=== PATIENT | male | born 1960 | race Caucasian/White ===

== ENCOUNTER 2019-12-07 08:35 | Outpatient (REF) | payer OTHER, SELFPAY ==
[2019-12-07 09:23] LABS: Hematocrit 32.1 % (42-52); Hemoglobin 10.6 g/dl (14.0-18.0); Mean Corpuscular Volume 102.9 fL (80-98); Mean Platelet Volume 10.4 fL (9.4-12.4); Platelet Count 290 X10*3/uL (160-400); Red Blood Count 3.12 X10*6/uL (4.60-5.80); Red Cell Distribution Width 15.8 % (11.0-16.0); White Blood Count 22.4 X10*3/uL (4.8-10.8)
[2019-12-07 10:23] LABS: Anion Gap 15 (12-20); Blood Urea Nitrogen 11 mg/dL (9-16); Calcium 8.2 mg/dL (8.4-10.2); Carbon Dioxide 25 mmol/L (22-29); Chloride 102 mmol/L (96-108); Estimated Glomerular Filt Rate > 60; Glucose Random 96 mg/dL (60-115); Potassium 4.4 mmol/l (3.3-5.1); Sodium 138 mmol/L (135-145)
== END 2019-12-07 08:36 | disposition home or self-care (01) ==
LOC: HO.LAB 08:35
PROVIDERS: PCP Internal Medicine; Visit Provider Internal Medicine
DX: K70.10 Alcoholic hepatitis without ascites (principal)
CPT/HCPCS: 36415; 80048; 85027

== ENCOUNTER → 2019-12-28 15:21 | Outpatient (BNVA) | payer OTHER, SELFPAY | PROVIDERS: PCP Internal Medicine; Referring Provider Internal Medicine; Visit Provider Internal Medicine Gastroenterology | DX: Z76.89 Persons encountering health services in other specified circumstances (principal) ==

== ENCOUNTER 2020-02-16 17:10 | Inpatient (IN) | payer OTHER, SELFPAY ==
[2020-02-16] VITALS (16 sets, daily range): BP systolic 92–107; BP diastolic 42–65; PULSE 99–108; RESP 12–16; TEMP 36.6–37; O2SAT 96–100; BMI 23.6
--- NOTE | 2020-02-16 17:56 | ECG_ITS ---
Test Reason : WEAKNESS Blood Pressure : / mmHG Vent. Rate : 105 BPM Atrial Rate : 105 BPM P-R Int : 130 ms QRS Dur : 086 ms QT Int : 396 ms P-R-T Axes : 084 080 073 degrees QTc Int : 523 ms Sinus tachycardia Prolonged QT Abnormal ECG When compared with ECG of 07-NOV-2019 13:24, QT has lengthened Referred By: Josseline Horvath Electronically Signed By:Merritt Lucas
--- NOTE | 2020-02-16 18:11 | ED_ITS ---
HPI - Abdominal Pain General Chief Complaint: Abdominal Pain Stated Complaint: dehydrated Time Seen by Provider: 02/16/20 17:49 Source: patient and family Mode of arrival: ambulatory Limitations: no limitations History of Present Illness HPI narrative: 59-year-old male with significant history of ascites, alcoholis m, alcoholic cirrhosis presents with jaundice, fevers, chills, nausea, and diarrhea. He was dropped off to this facility by his brother, patient states that he is going through alcohol withdrawals at this time. MD elicited complaint: abdominal pain Pertinent past history: other ( Alcoholic cirrhosis) Onset (ago): unknown Pain Consistency: constant Location: diffuse Severity: severe Pain scale (0-10): 10 Quality: cramping, aching and fullness Exacerbating factors: eating, vomiting and movement Relieving factors: nothing Associated symptoms: nausea, vomiting, diarrhea, fever, chills and anorexia Related Data Home Medications Medication Instructions Recorded Confirmed cholecalciferol (vitamin D3) 1,250 1,250 mcg PO QWEEK 12/28/19 02/16/20 mcg (50,000 unit) capsule furosemide 20 mg tablet 20 mg PO QAM 12/28/19 02/16/20 spironolactone 50 mg tablet 50 mg PO DAILY 12/28/19 02/16/20 Previous Rx's Medication Instructions Recorded folic acid 1 mg tablet 1 mg PO DAILY #30 tab 12/28/19 thiamine HCl (vitamin B1) 100 mg 100 mg PO DAILY 30 Days #30 tab 12/28/19 tablet Allergies Allergy/AdvReac Type Severity Reaction Status Date / Time No Known Allergies Allergy Unverified 11/16/19 14:42 [No Known Allergies*] Review of Systems Review of Systems Constitutional: No Weight loss, positive Fever, positive Chills, positive Malaise ENT/Mouth: No Hearing loss, No Ear Pain, No Nasal Congestion, No Sinus Pain, No Hoarseness, No sore throat, No Rhinorrhea, No Swallowing Difficulty Eyes: No Eye Pain, No Swelling, No Redness, No Foreign Body, No Discharge, No Vision Changes Cardiovascular: No Chest Pain, No SOB, No Dyspnea on Exertion, No Orthopnea, No Edema, No Palpitations Respiratory: No Cough, No Sputum, No Wheezing, No Smoke Exposure, No Dyspnea Gastrointestinal: Positive Nausea, no Vomiting, positive Diarrhea, positive abdominal Pain, No Hematochezia, No Melena Genitourinary: no irregular bleeding, No Dysuria, No Urinary Frequency, No Hematuria, No Urinary Incontinence, No Urgency, No Flank Pain, No Urinary Flow Changes, No Hesitancy Musculoskeletal: No joint pain, No Myalgias, No Joint Swelling Skin: positive jaundice, No Skin Lesions, No rash Neuro: No Weakness, No Numbness, No Paresthesias, No Loss of Consciousness, No Dizziness, No Headache Psych: No Anxiety/Panic, positive Depression, No SI/HI/AH/VH, positive alcoholism Heme/Lymph: No Bruising, No Bleeding,No Lymphadenopathy Endocrine: No Polyuria, No Polydipsia, No Temperature Intolerance Yes all other systems are reviewed and are negative Physical Exam Vital Signs: Vital Signs: Last Vital Signs Temp 98.2 F 02/17/20 02:15 Pulse 100 02/17/20 02:15 Resp 11 L 02/17/20 02:15 BP 103/50 L 02/17/20 02:15 Pulse Ox 99 02/17/20 02:15 Body Mass Index 23.6 Appearance: Alert. Oriented X3. moderate distress. tremors, Eyes: Pupils equal, round and reactive to light. scleral icterus ENT: Pharynx normal. Neck: JVD distention CVS: tachycardic heart rate and rhythm. Pulses equal and thready to all extremities Respiratory: No respiratory distress. Breath sounds normal. Abdomen: distended consistent with ascites Skin: jaundice, Skin warm, flaky, and dry. Extremities: positive bilateral lower extremity edema Neuro: No motor deficit. No sensory deficit. Procedures Paracentesis Time Out Performed: Yes Indication: Ascites Procedure: therapeutic paracentesis Location: RLQ Local Anesthetic: lidocaine 2% Amount of anesthesia used (mL): 5 Bedside Ultrasound Used: yes, Ascites confirmed and location marked Preparation: sterile prep and drape Amount of fluid obtained (mL): 2,000 Fluid: clear Size of Needle Used: 25 Post Procedure Exam: awake, alert, normal BP, normal HR and normal SpO2 Patient Tolerated Procedure: well and no complications Complications: none Course Course Course Narrative: 59-year-old male with known anemia, alcohol abuse with alcohol withdrawal, ascites, cirrhosis and jaundice presents with numerous complaints. Plan of care is to start phenobarbital protocol as he is actively withdrawing from alcohol, will start 2 lines as he needs a banana bag and fluids. Magnesium is 1.5, we will replete with 2 g IV, ammonia 91, we will give lactulose, potassium 2.7 replete 60 mg p.o., sodium 131 which may be repleted with 2 L bolus and banana bag, bilirubin 11, alk-phos 143, H&H 5.4 were 15.5 order for 2 units of packed red blood cells, CT scan of abdomen shows moderate ascites. Plan for paracentesis and admission. Friedman catheterization and rectal tube ordered. Discussion with Philippe Hammer. Paracentesis completed, right lateral side, under ultrasound guidance, patient tolerated procedure well, 2 L of fluid aspirated, fluids sent for culture. Prepped and draped in sterile fashion. Consultations Consultation #1: Philippe Hammer Time: 20:43 MDM - Abdominal Pain Differential Diagnosis Differential diagnosis: Likely abdominal pain, acute appendicitis, bowel perforation, diverticulitis, gastritis, mesenteric ischemia and pancreatitis Medical Records Attestation: I reviewed the patient's medical records. Lab Data Attestation: I reviewed the patient's lab results. Result diagrams: 02/17/20 00:21 02/17/20 00:21 Labs: Lab Results 02/16/20 02/16/20 02/16/20 Range/Units 18:23 18:23 18:23 WBC Cancelled RBC Cancelled Hgb Cancelled Hct Cancelled MCV Cancelled MCH Cancelled MCHC Cancelled RDW Cancelled Plt Count Cancelled MPV Cancelled Immature Gran % (Auto) Cancelled Neut % (Auto) Cancelled Lymph % (Auto) Cancelled [place] % (Auto) Cancelled Eos % (Auto) Cancelled Baso % (Auto) Cancelled Lymph # (Auto) Cancelled [place] # (Auto) Cancelled Eos # (Auto) Cancelled Baso # (Auto) Cancelled Abs Immat Gran (auto) Cancelled Absolute Neuts (auto) Cancelled Absolute Nucleated RBC Cancelled Nucleated RBC % (auto) Cancelled PT 23.6 H (10.8-13.0) SEC INR 2.0 H (0.9-1.1) APTT 39.2 H (24.1-38.0) SEC Sodium 131 L (135-145) mmol/L Potassium 2.7 L D (3.3-5.1) mmol/l Chloride 87 L (96-108) mmol/L Carbon Dioxide 26 (22-29) mmol/L Anion Gap 21 H (12-20) BUN 17 H D (9-16) mg/dL Creatinine 1.32 (0.5-1.4) mg/dL Estim Creat Clear Calc 61.4 Estimated GFR 55 Random Glucose 114 (60-115) mg/dL Calcium 7.8 L (8.4-10.2) mg/dL Magnesium (1.6-2.6) mg/dL Total Bilirubin 11.0 H (0.0-1.0) mg/dL Direct Bilirubin 7.3 H (0.0-0.5) mg/dL AST 77 H (5-37) U/L ALT 12 (0-40) U/L Alkaline Phosphatase 143 H (39-117) U/L Ammonia (13-55) umol/L Troponin I High Sens (<3.5-35.0) ng/L B-Natriuretic Peptide (<100) pg/mL Total Protein 7.1 (6.5-8.0) g/dL Albumin 2.2 L (3.5-5.0) g/dL Lipase 93 H (8-78) U/L Urine Color Urine Appearance Urine pH (5.0-8.0) Ur Specific [place] (1.005-1.025) Urine Protein (NEG-TRACE) MG/DL Urine Glucose (UA) (NEG) MG/DL Urine Ketones (NEG) MG/DL Urine Blood (NEG) Urine Nitrite (NEG) Ur Leukocyte Esterase (NEG) Urine RBC (0) /HPF Urine WBC (0-4) /HPF Ur Squamous Epith Cells /LPF Ur Renal Epithelial Cell /LPF Other Crystals /LPF Urine Bacteria /LPF Hyaline Casts /LPF Urine Mucus /LPF Ethyl Alcohol mg/dL COVID-19 (MAHAD) (Negative) COVID-19 Clin Com Blood Type Antibody Screen Crossmatch 02/16/20 02/16/20 02/16/20 Range/Units 18:23 18:23 18:23 WBC RBC Hgb Hct MCV MCH MCHC RDW Plt Count MPV Immature Gran % (Auto) Neut % (Auto) Lymph % (Auto) [place] % (Auto) Eos % (Auto) Baso % (Auto) Lymph # (Auto) [place] # (Auto) Eos # (Auto) Baso # (Auto) Abs Immat Gran (auto) Absolute Neuts (auto) Absolute Nucleated RBC Nucleated RBC % (auto) PT (10.8-13.0) SEC INR (0.9-1.1) APTT (24.1-38.0) SEC Sodium (135-145) mmol/L Potassium (3.3-5.1) mmol/l Chloride (96-108) mmol/L Carbon Dioxide (22-29) mmol/L Anion Gap (12-20) BUN (9-16) mg/dL Creatinine (0.5-1.4) mg/dL Estim Creat Clear Calc Estimated GFR Random Glucose (60-115) mg/dL Calcium (8.4-10.2) mg/dL Magnesium 1.5 L (1.6-2.6) mg/dL Total Bilirubin (0.0-1.0) mg/dL Direct Bilirubin (0.0-0.5) mg/dL AST (5-37) U/L ALT (0-40) U/L Alkaline Phosphatase (39-117) U/L Ammonia (13-55) umol/L Troponin I High Sens 3.8 (<3.5-35.0) ng/L B-Natriuretic Peptide 85 (<100) pg/mL Total Protein (6.5-8.0) g/dL Albumin (3.5-5.0) g/dL Lipase (8-78) U/L Urine Color Urine Appearance Urine pH (5.0-8.0) Ur Specific [place] (1.005-1.025) Urine Protein (NEG-TRACE) MG/DL Urine Glucose (UA) (NEG) MG/DL Urine Ketones (NEG) MG/DL Urine Blood (NEG) Urine Nitrite (NEG) Ur Leukocyte Esterase (NEG) Urine RBC (0) /HPF Urine WBC (0-4) /HPF Ur Squamous Epith Cells /LPF Ur Renal Epithelial Cell /LPF Other Crystals /LPF Urine Bacteria /LPF Hyaline Casts /LPF Urine Mucus /LPF Ethyl Alcohol 208 mg/dL COVID-19 (MAHAD) (Negative) COVID-19 Clin Com Blood Type Antibody Screen Crossmatch 02/16/20 02/16/20 02/16/20 Range/Units 18:24 19:38 20:45 WBC 15.6 H RBC 1.60 L D Hgb 5.4 L* D Hct 15.5 L* D MCV 96.9 MCH 33.8 H MCHC 34.8 RDW 20.0 H Plt Count 164 D MPV 10.3 Immature Gran % (Auto) 1.6 H Neut % (Auto) 87.0 H Lymph % (Auto) 5.1 L [place] % (Auto) 6.1 Eos % (Auto) 0.1 Baso % (Auto) 0.1 Lymph # (Auto) 0.8 L [place] # (Auto) 1.0 Eos # (Auto) 0.0 Baso # (Auto) 0.0 Abs Immat Gran (auto) 0.25 H Absolute Neuts (auto) 13.6 H Absolute Nucleated RBC 0.140 H Nucleated RBC % (auto) 0.9 H PT (10.8-13.0) SEC INR (0.9-1.1) APTT (24.1-38.0) SEC Sodium (135-145) mmol/L Potassium (3.3-5.1) mmol/l Chloride (96-108) mmol/L Carbon Dioxide (22-29) mmol/L Anion Gap (12-20) BUN (9-16) mg/dL Creatinine (0.5-1.4) mg/dL Estim Creat Clear Calc Estimated GFR Random Glucose (60-115) mg/dL Calcium (8.4-10.2) mg/dL Magnesium (1.6-2.6) mg/dL Total Bilirubin (0.0-1.0) mg/dL Direct Bilirubin (0.0-0.5) mg/dL AST (5-37) U/L ALT (0-40) U/L Alkaline Phosphatase (39-117) U/L Ammonia 91 H (13-55) umol/L Troponin I High Sens (<3.5-35.0) ng/L B-Natriuretic Peptide (<100) pg/mL Total Protein (6.5-8.0) g/dL Albumin (3.5-5.0) g/dL Lipase (8-78) U/L Urine Color Urine Appearance Urine pH (5.0-8.0) Ur Specific [place] (1.005-1.025) Urine Protein (NEG-TRACE) MG/DL Urine Glucose (UA) (NEG) MG/DL Urine Ketones (NEG) MG/DL Urine Blood (NEG) Urine Nitrite (NEG) Ur Leukocyte Esterase (NEG) Urine RBC (0) /HPF Urine WBC (0-4) /HPF Ur Squamous Epith Cells /LPF Ur Renal Epithelial Cell /LPF Other Crystals /LPF Urine Bacteria /LPF Hyaline Casts /LPF Urine Mucus /LPF Ethyl Alcohol mg/dL COVID-19 (MAHAD) Negative (Negative) COVID-19 Clin Com See Note Blood Type Antibody Screen Crossmatch 02/16/20 02/17/20 02/17/20 Range/Units 21:16 00:21 00:21 WBC 16.8 H RBC 1.96 L D Hgb 6.7 L* D Hct 19.0 L* D MCV 96.9 MCH 34.2 H MCHC 35.3 RDW 18.2 H Plt Count 152 L MPV 10.3 Immature Gran % (Auto) 1.5 H Neut % (Auto) 84.0 H Lymph % (Auto) 6.6 L [place] % (Auto) 7.6 Eos % (Auto) 0.2 Baso % (Auto) 0.1 Lymph # (Auto) 1.1 L [place] # (Auto) 1.3 H Eos # (Auto) 0.0 Baso # (Auto) 0.0 Abs Immat Gran (auto) 0.25 H Absolute Neuts (auto) 14.1 H Absolute Nucleated RBC 0.100 H Nucleated RBC % (auto) 0.6 H PT (10.8-13.0) SEC INR (0.9-1.1) APTT (24.1-38.0) SEC Sodium 132 L (135-145) mmol/L Potassium 2.9 L (3.3-5.1) mmol/l Chloride 93 L (96-108) mmol/L Carbon Dioxide 24 (22-29) mmol/L Anion Gap 18 (12-20) BUN 17 H (9-16) mg/dL Creatinine 1.27 (0.5-1.4) mg/dL Estim Creat Clear Calc 63.8 Estimated GFR 58 Random Glucose 123 H (60-115) mg/dL Calcium 7.4 L (8.4-10.2) mg/dL Magnesium 1.8 (1.6-2.6) mg/dL Total Bilirubin (0.0-1.0) mg/dL Direct Bilirubin (0.0-0.5) mg/dL AST (5-37) U/L ALT (0-40) U/L Alkaline Phosphatase (39-117) U/L Ammonia (13-55) umol/L Troponin I High Sens (<3.5-35.0) ng/L B-Natriuretic Peptide (<100) pg/mL Total Protein (6.5-8.0) g/dL Albumin (3.5-5.0) g/dL Lipase (8-78) U/L Urine Color Urine Appearance Urine pH (5.0-8.0) Ur Specific [place] (1.005-1.025) Urine Protein (NEG-TRACE) MG/DL Urine Glucose (UA) (NEG) MG/DL Urine Ketones (NEG) MG/DL Urine Blood (NEG) Urine Nitrite (NEG) Ur Leukocyte Esterase (NEG) Urine RBC (0) /HPF Urine WBC (0-4) /HPF Ur Squamous Epith Cells /LPF Ur Renal Epithelial Cell /LPF Other Crystals /LPF Urine Bacteria /LPF Hyaline Casts /LPF Urine Mucus /LPF Ethyl Alcohol mg/dL COVID-19 (MAHAD) (Negative) COVID-19 Clin Com Blood Type O Positive Antibody Screen NEGATIVE Crossmatch See Detail 02/17/20 Range/Units 00:28 WBC RBC Hgb Hct MCV MCH MCHC RDW Plt Count MPV Immature Gran % (Auto) Neut % (Auto) Lymph % (Auto) [place] % (Auto) Eos % (Auto) Baso % (Auto) Lymph # (Auto) [place] # (Auto) Eos # (Auto) Baso # (Auto) Abs Immat Gran (auto) Absolute Neuts (auto) Absolute Nucleated RBC Nucleated RBC % (auto) PT (10.8-13.0) SEC INR (0.9-1.1) APTT (24.1-38.0) SEC Sodium (135-145) mmol/L Potassium (3.3-5.1) mmol/l Chloride (96-108) mmol/L Carbon Dioxide (22-29) mmol/L Anion Gap (12-20) BUN (9-16) mg/dL Creatinine (0.5-1.4) mg/dL Estim Creat Clear Calc Estimated GFR Random Glucose (60-115) mg/dL Calcium (8.4-10.2) mg/dL Magnesium (1.6-2.6) mg/dL Total Bilirubin (0.0-1.0) mg/dL Direct Bilirubin (0.0-0.5) mg/dL AST (5-37) U/L ALT (0-40) U/L Alkaline Phosphatase (39-117) U/L Ammonia (13-55) umol/L Troponin I High Sens (<3.5-35.0) ng/L B-Natriuretic Peptide (<100) pg/mL Total Protein (6.5-8.0) g/dL Albumin (3.5-5.0) g/dL Lipase (8-78) U/L Urine Color BROWN Urine Appearance HAZY Urine pH 6.5 (5.0-8.0) Ur Specific [place] 1.015 (1.005-1.025) Urine Protein 1+ H (NEG-TRACE) MG/DL Urine Glucose (UA) 100 H (NEG) MG/DL Urine Ketones 15 (NEG) MG/DL Urine Blood 1+ H (NEG) Urine Nitrite POS H (NEG) Ur Leukocyte Esterase TRACE H (NEG) Urine RBC 0-2 (0) /HPF Urine WBC 0 (0-4) /HPF Ur Squamous Epith Cells TRACE /LPF Ur Renal Epithelial Cell TRACE /LPF Other Crystals 2+ /LPF Urine Bacteria NONE /LPF Hyaline Casts 10-14 /LPF Urine Mucus 1+ /LPF Ethyl Alcohol mg/dL COVID-19 (MAHAD) (Negative) COVID-19 Clin Com Blood Type Antibody Screen Crossmatch Imaging Data Chest x-ray: Attestation: I personally reviewed and interpreted this imaging study as follows: ECG Data Attestation: I personally reviewed and interpreted this ECG as follows: ECG interpretation date: 02/16/20 ECG interpretation time: 18:11 Prior ECG tracings: available for review Interpretation: Vent. Rate : 105 BPM Atrial Rate : 105 BPM P-R Int : 130 ms QRS Dur : 086 ms QT Int : 396 ms P-R-T Axes : 084 080 073 degrees QTc Int : 523 ms Sinus tachycardia Prolonged QT Abnormal ECG When compared with ECG of 07-NOV-2019 13:24, QT has lengthened Critical Care Time Critical Care Time Critical Care Time: Yes Total Critical Care Time: 120 Attestation: I have personally provided critical care time exclusive of time spent on separately billable procedures. Time includes review of laboratory data, radiology results, discussion with consultants, and monitoring for potential decompensation. Interventions were performed as documented. Discharge Plan Discharge Clinical Impression: Alcohol abuse Cirrhosis, alcoholic Qualifiers: Ascites presence: with ascites Qualified Code(s): K70.31 - Alcoholic cirrhosis of liver with ascites Anemia Qualifiers: Anemia type: iron deficiency Iron deficiency anemia type: unspecified iron deficiency Qualified Code(s): D50.9 - Iron deficiency anemia, unspecified Alcohol withdrawal Qualifiers: Complication of substance-induced condition: uncomplicated Qualified Code(s): F10.230 - Alcohol dependence with withdrawal, uncomplicated Abdominal ascites Qualifiers: Ascites type: due to alcoholic cirrhosis Qualified Code(s): K70.31 - Alcoholic cirrhosis of liver with ascites Patient Disposition: Admitted As Inpatient [facility] Past Medical History Attestation statement: The following information was validated with the patient. Source: old records reviewed Medical History Alcohol abuse Anemia Cirrhosis, alcoholic History of abdominal paracentesis History of open sigmoidectomy Low vitamin D level Surgical History History of esophagogastroduodenoscopy (EGD) Hx of colonoscopy Family History Family History Father Hx of thyroid cancer Mother Hx of thyroid disease Daughter No problems noted. 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
--- NOTE | 2020-02-16 18:37 | CT_ITS ---
EXAMINATION: CT ABDOMEN AND PELVIS WITHOUT CONTRAST CLINICAL INFORMATION: Cirrhosis of liver and ascites. COMPARISON: Abdominal ultrasound 11/24/2019, CT abdomen and pelvis 11/24/2019. TECHNIQUE: Multidetector volumetric imaging was performed from the superior aspect of the liver through the pubic symphysis. Sagittal and coronal reformatted images were obtained on the technologist's workstation. This CT examination was performed using dose optimization techniques as appropriate, variously including the following: *Automated exposure control *Adjustment of mA and/or kV according to patient size (this includes techniques or standardized protocols for targeted exams where dose is matched to indication/reason for exam; i.e. extremities or head) *Use of iterative reconstruction technique DLP: 470 mGy-cm FINDINGS: LUNG BASES: Right basilar atelectasis is unchanged. A tiny left pleural effusion is once again seen. LIVER, GALLBLADDER, AND BILIARY TREE: The liver is enlarged and demonstrates heterogeneous fatty infiltration, significantly worse than noted previously with relative sparing of the left lobe of the liver. Cirrhotic changes are present. A recanalized umbilical vein is present. Moderate ascites remains present. The gallbladder is more distended than on the prior study but is otherwise unremarkable with no evidence of radiopaque gallstones, gallbladder wall thickening, or obvious pericholecystic inflammatory changes. PANCREAS: Unremarkable. SPLEEN: Unremarkable. ADRENAL GLANDS: Unremarkable. KIDNEYS AND URETERS: The kidneys are normal in size, shape, and attenuation. No hydronephrosis, hydroureter, or calculi seen. No perinephric stranding. BLADDER: Unremarkable. GASTROINTESTINAL TRACT: Again seen is a rectosigmoid anastomosis. The left colon and transverse colon appear normal. The right colon appears edematous. Previously seen circumferential thickening of some of the small bowel is unchanged. No pneumatosis is seen. No free air is seen. No evidence of intra-abdominal abscess. ABDOMINAL WALL: No significant hernia is appreciated. LYMPH NODES: Normal. VASCULAR: Aortoiliac calcific atherosclerotic changes. IVC appears normal. Recanalized umbilical vein as described above. PELVIC VISCERA: There is mild BPH again seen. The seminal vesicles are unremarkable. OSSEOUS STRUCTURES: Mild degenerative change is present in the spine. Nonunion of right 9th rib fracture redemonstrated. CT/CT abdomen pelvis wo con IMPRESSION: 1. Cirrhotic liver with moderate ascites, unchanged. 2. The right colon now appears edematous and some small-bowel loops remain thickened. This could be secondary to enteritis. 3. Other incidental findings as described above
[2020-02-16 18:52] LABS: Ethanol 208 mg/dL
[2020-02-16 18:56] LABS: Ammonia 91 umol/L (13-55)
[2020-02-16 18:56] LABS: Magnesium 1.5 mg/dL (1.6-2.6)
[2020-02-16 19:01] LABS: B Type Natriuretic Peptide 85 pg/mL (<100); Troponin-I High Sensitivity 3.8 ng/L (<3.5-35.0)
[2020-02-16 19:07] LABS: Prothrombin Time 23.6 SEC (10.8-13.0)
[2020-02-16 19:08] LABS: Alanine Aminotransferase 12 U/L (0-40); Albumin Level 2.2 g/dL (3.5-5.0); Alkaline Phosphatase 143 U/L (39-117); Anion Gap 21 (12-20); Aspartate Amino Transferase 77 U/L (5-37); Bilirubin Direct 7.3 mg/dL (0.0-0.5); Blood Urea Nitrogen 17 mg/dL (9-16); Calcium 7.8 mg/dL (8.4-10.2); Carbon Dioxide 26 mmol/L (22-29); Chloride 87 mmol/L (96-108); Creatinine Clr Calc Pharmacy 61.4; Estimated Glomerular Filt Rate 55; Glucose Random 114 mg/dL (60-115); Potassium 2.7 mmol/l (3.3-5.1); Sodium 131 mmol/L (135-145); Total Protein 7.1 g/dL (6.5-8.0)
[2020-02-16 19:10] LABS: Partial Thromboplastin Time 39.2 SEC (24.1-38.0)
[2020-02-16 19:20] LABS: Lipase 93 U/L (8-78)
[2020-02-16 19:47] LABS: MANUAL DIFF FLAG NO
[2020-02-16 19:49] LABS: Basophils Percent Auto 0.1 % (0-2); Eosinophils Percent Auto 0.1 % (0-4); Imm Gran Abs Auto 0.25 X10*3/uL (0.00-0.03); Imm Gran Pct Auto 1.6 % (0.0-0.4); Lymphocytes Absolute Auto 0.8 X10*3/uL (1.2-4.9); Lymphocytes Percent Auto 5.1 % (20-40); Mean Corpuscular HGB Conc 34.8 g/dl (31.0-36.0); Mean Corpuscular Hemoglobin 33.8 pg (27.0-33.0); Mean Corpuscular Volume 96.9 fL (80-98); Mean Platelet Volume 10.3 fL (9.4-12.4); Monocytes Percent Auto 6.1 % (2-11); NRBC Pct Auto 0.9 /100WBC (0.0-0.2); Neutrophils Absolute Auto 13.6 X10*3/uL (2.0-8.3); Platelet Count 164 X10*3/uL (160-400); White Blood Count 15.6 X10*3/uL (4.8-10.8)
[2020-02-16 19:54] LABS: Hemoglobin 5.4 g/dl (14.0-18.0)
[2020-02-16 19:55] LABS: Hematocrit 15.5 % (42-52)
[2020-02-16] MEDS: Lactulose 20 GM/30 ML SOLUTION 60 GM PO (20:07)
[2020-02-16] MEDS: 0.9 % Sodium Chloride 1,000 ML 999 ML IV (20:08)
[2020-02-16] MEDS: Magnesium Sulfate/H2O 2 GM/50 ML PIGGYBACK IV (20:08)
[2020-02-16] MEDS: PHENobarbitaL sodium 130 MG/ML VIAL 350 MG IM (20:08)
--- NOTE | 2020-02-16 20:13 | PC.NURSE ---
SECOND IV ACCESS ESTABLISHED BY DAVIS GARCÍA IN RIGHT AC. BANANA BAG, NS 1L, AND MAGNESIUM 2GM INFUSING ORDERED. PT HYPOTENSIVE, 92/47 AT THIS TIME, PROVIDER AWARE. SINUS TACHYCARDIA 104 ON MONITOR. RESP EVEN/UNLABORED. JAUNDICED SKIN. MEDICATED WITH LACTULOSE AND PHENOBARB IM FOR WITHDRAWAL SYMPTOMS. WILL CONTINUE TO MONITOR. AWARE OF CRITICAL LABS.
--- NOTE | 2020-02-16 20:24 | PC.NURSE ---
POTASSIUM CHLORIDE 60MEQ PO UNAVAILABLE IN [facility] AT THIS TIME. THIS RN CALLED PHARMACY, WILL ADMINISTER MEDICATION UPON ARRIVAL TO ED. DAVIS GARCÍA AWARE.
--- NOTE | 2020-02-16 20:50 | PC.NURSE ---
DRAWING TYPE/SCREEN AT THIS TIME. PT IS ALERT/ORIENTED x3, BLOOD PRESSURE IMPROVING. LAST BP 105/57. WILL CONTINUE TO MONITOR. POTASSIUM 60MEQ PO ADMINISTERED ORDERED.
[2020-02-16 21:05] LABS: COVID-19 Test Negative (Negative)
--- NOTE | 2020-02-16 21:28 | PC.NURSE ---
PER MYLENE (PHARMACIST), PHENOBARBITAL TO BE ADMINISTERED 3 HOURS AFTER FIRST DOSE ADMINISTRATION. AWARE THAT FIRST DOSE (350MG IM) WAS ADMINISTERED AT 20:08 IN ED BY THIS RN. SECOND DOSE TO BE ADMINISTERED AT 23:00. DAVIS GARCÍA AWARE. PER LAB, THERE WAS NOT ENOUGH BLOOD IN THE FIRST TYPE/SCREEN TUBE. LAB REDRAWN AND SENT FOR ANALYSIS. AWAITING RESULTS. PROVIDER ALSO AWARE OF THIS.
--- NOTE | 2020-02-16 22:06 | PC.NURSE ---
PREPARING FOR BLOOD ADMINISTRATION. RBC UNIT (1) READY. PER RAQUEL,RADIOLOGY TRANSCRIPTIONIST, 2ND UNIT OF RBCs TO BE ORDERED AND ADMINISTERED. ALSO PER RAQUEL, PLAN TO OBTAIN CBC, BMP, AND MAGNESIUM LEVEL UPON COMPLETE INFUSION OF 1ST UNIT OF RBCs.
--- NOTE | 2020-02-16 22:20 | PC.NURSE ---
1 UNIT RBCs INITIATED BY THIS RN, WITNESSED BY CALLY APONTE RN. WILL CONTINUE TO MONITOR. UNIT #: [id number] BLOOD BAND #: [id number] O POSITIVE RBCs, LEUKOCYTES REDUCED.
--- NOTE | 2020-02-16 22:30 | PC.NURSE ---
PLACED ON 2LPM OXYGEN VIA NASAL CANNULA. LUNG SOUNDS REMAIN CLEAR THROUGHOUT. SLEEPING, RESPIRATIONS EVEN & UNLABORED.
--- NOTE | 2020-02-16 22:35 | PC.NURSE ---
REPEAT VITAL SIGNS 15 MINUTES AFTER INITIATING BLOOD TRANSFUSION ARE: BP 101/50 PULSE 101 OXYGEN SAT: 98% ON 2LPM VIA NASAL CANNULA RR: 12 TEMPERATURE: 98.4F WILL CONTINUE TO MONITOR. NO ADVERSE EFFECTS/REACTIONS NOTED AT THIS TIME.
--- NOTE | 2020-02-16 22:54 | PC.NURSE ---
LARGE LIQUID STOOL NOTED. PATIENT'S LINENS AND GOWN CHANGED TWICE, PT BEGAN HAVING SECOND EPISODE OF LIQUID STOOL DURING INITIAL CLEAN-UP. MULTIPLE CHUCKS PLACED UNDER PATIENT. BLOOD CONTINUES TO INFUSE. LUNG SOUNDS REMAIN CLEAR TO AUSCULTATION. WILL CONTINUE TO MONITOR.
--- NOTE | 2020-02-16 23:32 | PC.NURSE ---
PHENOBARBITAL 260MG IM ADMINISTRATION HELD DUE TO LOW BP, PER LEAH GARCÍA NP. DOSE TO BE CHANGED TO 130MG IM ADMINISTRATION. PROVIDER SPOKE WITH PHARMACY REGARDING THIS CHANGE. 1ST UNIT OF BLOOD CONTINUES TO INFUSE VIA LEFT AC IV ACCESS. NO ADVERSE EFFECTS NOTED AT THIS TIME. WILL CONTINUE TO MONITOR.
[2020-02-17] VITALS (34 sets, daily range): BP systolic 96–137; BP diastolic 50–76; PULSE 91–116; RESP 11–20; TEMP 36.6–37.5; O2SAT 2–100
[2020-02-17] MEDS: Lidocaine HCl 2 % Urojet 10 ML JEL.PF.APP TOPICAL
--- NOTE | 2020-02-17 | PC.NURSE ---
1ST UNIT OF RBCs INFUSION COMPLETE. REPEAT LABS TO BE DRAWN AND SENT FOR ANALYSIS. BUCKNER CATHETER INSERTION AND RECTAL TUBE INSERTION ORDERED. PLAN FOR PARACENTESIS PENDING LAB RESULTS, PER DAVIS GARCÍA. PATIENT HAS HAD MULTIPLE AND FREQUENT EPISODES OF LIQUID STOOL, REQUIRING MULTIPLE COMPLETE BED/GOWN CHANGES. PT LETHARGIC. OXYGEN VIA NASAL CANNULA REMAINS. SECOND UNIT OF BLOOD TO BE ADMINISTERED AFTER LAB DRAW. WILL CONTINUE TO MONITOR.
[2020-02-17 00:39] LABS: MANUAL DIFF FLAG NO
[2020-02-17 00:40] LABS: Basophils Percent Auto 0.1 % (0-2); Eosinophils Percent Auto 0.2 % (0-4); Imm Gran Abs Auto 0.25 X10*3/uL (0.00-0.03); Imm Gran Pct Auto 1.5 % (0.0-0.4); Lymphocytes Absolute Auto 1.1 X10*3/uL (1.2-4.9); Lymphocytes Percent Auto 6.6 % (20-40); Mean Corpuscular HGB Conc 35.3 g/dl (31.0-36.0); Mean Corpuscular Hemoglobin 34.2 pg (27.0-33.0); Mean Corpuscular Volume 96.9 fL (80-98); Mean Platelet Volume 10.3 fL (9.4-12.4); Monocytes Absolute Auto 1.3 X10*3/uL (0.1-1.2); Monocytes Percent Auto 7.6 % (2-11); NRBC Pct Auto 0.6 /100WBC (0.0-0.2); Neutrophils Absolute Auto 14.1 X10*3/uL (2.0-8.3); Platelet Count 152 X10*3/uL (160-400); Red Blood Count 1.96 X10*6/uL (4.60-5.80); Red Cell Distribution Width 18.2 % (11.0-16.0); White Blood Count 16.8 X10*3/uL (4.8-10.8)
[2020-02-17 00:42] LABS: Glucose Urine UA 100 MG/DL (NEG); PH 6.5 (5.0-8.0); Specific Gravity - Urine 1.015 (1.005-1.025); Urine Blood 1+ (NEG); Urine Ketones 15 MG/DL (NEG); Urine Protein 1+ MG/DL (NEG-TRACE)
[2020-02-17 00:45] LABS: Hemoglobin 6.7 g/dl (14.0-18.0)
[2020-02-17 00:47] LABS: Appearance Urine HAZY; Color Urine BROWN
[2020-02-17 00:49] LABS: Leukocyte Esterase Urine TRACE (NEG); Nitrite Urine POS (NEG)
[2020-02-17 01:04] LABS: Anion Gap 18 (12-20); Blood Urea Nitrogen 17 mg/dL (9-16); Calcium 7.4 mg/dL (8.4-10.2); Carbon Dioxide 24 mmol/L (22-29); Chloride 93 mmol/L (96-108); Creatinine Clr Calc Pharmacy 63.8; Estimated Glomerular Filt Rate 58; Glucose Random 123 mg/dL (60-115); Magnesium 1.8 mg/dL (1.6-2.6); Potassium 2.9 mmol/l (3.3-5.1); Sodium 132 mmol/L (135-145)
--- NOTE | 2020-02-17 01:05 | PC.NURSE ---
SECOND UNIT OF RBCs INITIATED ON 02/17/2020 @ 01:05AM. WITNESSED BY CALLY APONTE RN. UNIT #: [id number] O POSITIVE EXP: MAR 12, 2020 BLOOD BAND #: [id number] VITAL SIGNS: BP 103/67 PULSE 100 OXYGEN 99% ON 2LPM VIA NASAL CANNULA RR: 12 TEMP: 98.0F ORALLY WILL CONTINUE TO MONITOR.
[2020-02-17 01:08] LABS: Mucus Urine 1+ /LPF; RBC Urine 0-2 /HPF (0); Renal Epithelial Cells Urine TRACE /LPF; Squamous Epithelial Cell Urine TRACE /LPF; WBC Urine 0 /HPF (0-4)
[2020-02-17 01:09] LABS: Other Crystals Urine 2+ /LPF
--- NOTE | 2020-02-17 02:00 | PC.NURSE ---
PARACENTESIS COMPLETED AT THE BEDSIDE BY DAVIS GARCÍA. 2 LITERS OF CLEAR YELLOW FLUID DRAINED FROM ABDOMEN. PATIENT TOLERATED PROCEDURE WELL. FLUID REMOVED FROM RIGHT SIDE OF ABDOMEN. ABDOMEN REMAINS DISTENDED, HOWEVER, LESS DISTENDED THAN IT WAS PRIOR TO PARACENTESIS. DID NOT DRAIN MORE THAN 2 LITERS OF FLUID DUE TO RISK OF FLUID SHIFT. VITAL SIGNS STABLE. WILL CONTINUE TO MONITOR.
[2020-02-17] MEDS: Lidocaine HCl 2 % MPF 5 ML VIAL 10 ML INFILTRATI (02:30)
[2020-02-17] MEDS: PHENobarbitaL sodium 130 MG/ML VIAL IM ×2 (02:49)
[2020-02-17] MEDS: Albumin Human 25 % 100 ML IV (02:49)
[2020-02-17] MEDS: Potassium Chloride/H20 10 MEQ/100 ML PIGGYBACK 100 MEQ IV ×2 (02:56→04:01)
--- NOTE | 2020-02-17 03:20 | PC.NURSE ---
PATIENT MEDICATED ORDERED. POTASSIUM CHLORIDE 10MEQ INFUSING INTO RIGHT AC IV ACCESS. ALBUMIN HUMAN 25% INFUSING INTO LEFT AC IV ACCESS. PATIENT IS RESPONSIVE TO VERBAL STIMULI AND ANSWERS ALL QUESTIONS APPROPRIATELY AT THIS TIME, BUT IS LETHARGIC. VITAL SIGNS STABLE. WILL CONTINUE TO MONITOR.
[2020-02-17 03:23] LABS: MN% 47.8 %; PMN% 52.2 %; RBC Peritoneal Fluid 0.002 X10*6/uL
[2020-02-17 06:39] LABS: BF Shift QC OK YES
[2020-02-17 06:44] LABS: WBC Peritoneal Fluid 0.099 X10*3/uL
[2020-02-17 06:47] LABS: Lymphocyte Peritoneal Fl 15 %; Monocytes Peritoneal Fl 37 %
[2020-02-17 06:48] LABS: Neutrophils Peritoneal Fluid 48 %
[2020-02-17 06:54] LABS: Total Protein Peritoneal Fluid 0.8
[2020-02-17 06:55] LABS: Glucose Peritoneal Fluid 131; LDH Peritoneal Fluid 38
--- NOTE | 2020-02-17 07:36 | PC.NURSE ---
pt sound asleep, respirations about 12 while asleep, but easily arousable, skin jaundices, sclera yellow. pt is oriented x3, reports abd pain at 7/10, bowel sounds present IN ALL QUADRANTS, AND DISTEND AND FIRM TO TOUCH. RECTAL TUBE IN PLACE WITH SOME BROWN/GREEN STOOL IN THE TUBE, BUCKNER CATH IN PLACE WITH VERY DARK ALMOST LAST LIKE URINE, ABOUT 300ML OF URINE IN THE BUCKNER BAG.
--- NOTE | 2020-02-17 08:06 | PM.IMHP ---
History of Present Illness Date of Service: 02/17/20 Chief Complaint: Abdominal pain, diarrhea, and withdrawal from alcohol 59-year-old male with history of alcoholic liver cirrhosis, ascietes, active alcoholism, he was treated for C dif colitis in [facility] of this year. He has been drinking vodka very heavily and the last 2 to 3 days have been having diffuse abdominla pain that is severe and assciated with nausea and vomitting as well as sujective fever. He denies blood in the stool. He is found to have multiple abnormal labs including hemoglobin of 5.4, INR 2, potassium 2.9, magnesium 1.5, ammonia 91, lipase 93, positive UA. He shows sings of alcohol withdrawal and given phenobarbital, he is transfused 2 units of RBC, C dif toxin is pending and he has rectal tube inserted. He is hemodynamically stable at present. [facility] Medical History (Updated 02/17/20 @ 08:37 by Santo Mcintosh MD) Alcohol abuse Alcoholism Anemia Cirrhosis, alcoholic GIB (gastrointestinal bleeding) History of abdominal paracentesis History of Clostridioides difficile colitis (~10/2019) History of open sigmoidectomy Kidney stone Low vitamin D level Ulcerative colitis Family History Father Hx of thyroid cancer Mother Hx of thyroid disease Daughter No problems noted. Son Autism Surgical History (Updated 02/17/20 @ 08:12 by Santo Mcintosh MD) H/O colectomy History of esophagogastroduodenoscopy (EGD) Hx of colonoscopy Social History Household Members: None Housing: House Do you presently have visiting nurse or other home services: No Alcohol intake: former Smoking Status: Current every day smoker Tobacco Type: Cigarette Packs Per Day: 1 Cigarettes Per Day: 20.0 Smoked in Last 30 Days: Yes Patient Interested in Nicotine Replacement: Yes Patient Given Instructions on How to Stop Smoking: Yes Date Education Initiated: 02/17/20 Second Hand Smoke Exposure: Yes Use of substances other than those prescribed or required for medical reasons: No Currently Displaying Signs/Symptoms of Drug Intoxication Withdrawal: No Have you been hit, kicked, punched, or otherwise hurt by someone within the past year? 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 Meds Allergies Allergy/AdvReac Type Severity Reaction Status Date / Time No Known Allergies Allergy Unverified 11/16/19 14:42 [No Known Allergies*] Home Medications Medication Instructions Recorded Confirmed Type cholecalciferol (vitamin D3) 1,250 1,250 mcg PO QWEEK 12/28/19 02/16/20 History mcg (50,000 unit) capsule furosemide 20 mg tablet 20 mg PO QAM 12/28/19 02/16/20 History spironolactone 50 mg tablet 50 mg PO DAILY 12/28/19 02/16/20 History Physical Exam Vital Signs and Narrative: Vital Signs: Last Vital Signs Temp 98.6 F 02/17/20 06:45 Pulse 92 02/17/20 07:25 Resp 12 02/17/20 07:25 BP 113/57 L 02/17/20 07:25 Pulse Ox 98 02/17/20 07:25 Body Mass Index 23.6 Constitutional Awake and Alert, No apparent distress HEENT-sclera icteris Neck Supple, No lymphadenopathy Cardiovascular RRR, No M/R/G, S1 S2, No S3 S4, No pedal edema Respiratory Lungs clear, No respiratory distress Gastrointestinal Non tender, slight distention, has rectal tube Skin No rash Neurological Alert & oriented x3 Psychological flat affect Results Labs CBC and Chem 7: 02/18/20 06:05 02/18/20 06:05 Labs: Laboratory Results - last 24 hr 02/16/20 02/16/20 02/16/20 18:23 18:23 18:23 MCV Cancelled MCH Cancelled MCHC Cancelled RDW Cancelled Plt Count Cancelled MPV Cancelled Immature Gran % (Auto) Cancelled Neut % (Auto) Cancelled Lymph % (Auto) Cancelled [place] % (Auto) Cancelled Eos % (Auto) Cancelled Baso % (Auto) Cancelled Lymph # (Auto) Cancelled [place] # (Auto) Cancelled Eos # (Auto) Cancelled Baso # (Auto) Cancelled Abs Immat Gran (auto) Cancelled Absolute Neuts (auto) Cancelled Absolute Nucleated RBC Cancelled Nucleated RBC % (auto) Cancelled PT 23.6 H INR 2.0 H APTT 39.2 H Anion Gap 21 H Estim Creat Clear Calc 61.4 Estimated GFR 55 Random Glucose 114 Calcium 7.8 L Magnesium Total Bilirubin 11.0 H Direct Bilirubin 7.3 H AST 77 H ALT 12 Alkaline Phosphatase 143 H Ammonia Troponin I High Sens B-Natriuretic Peptide Total Protein 7.1 Albumin 2.2 L Lipase 93 H Urine Color Urine Appearance Urine pH Ur Specific Rosalia Urine Protein Urine Glucose (UA) Urine Ketones Urine Blood Urine Nitrite Ur Leukocyte Esterase Urine RBC Urine WBC Ur Squamous Epith Cells Ur Renal Epithelial Cell Other Crystals Urine Bacteria Hyaline Casts Urine Mucus Peritoneal WBC Peritoneal RBC Periton Neutrophils Periton Lymphocytes Peritoneal Monocytes Peritoneal Tot Protein Peritoneal LDH Peritoneal Glucose Ethyl Alcohol COVID-19 (MAHAD) COVID-19 [employer] Blood Type Antibody Screen Crossmatch 02/16/20 02/16/20 02/16/20 18:23 18:23 18:23 MCV MCH MCHC RDW Plt Count MPV Immature Gran % (Auto) Neut % (Auto) Lymph % (Auto) [place] % (Auto) Eos % (Auto) Baso % (Auto) Lymph # (Auto) [place] # (Auto) Eos # (Auto) Baso # (Auto) Abs Immat Gran (auto) Absolute Neuts (auto) Absolute Nucleated RBC Nucleated RBC % (auto) PT INR APTT Anion Gap Estim Creat Clear Calc Estimated GFR Random Glucose Calcium Magnesium 1.5 L Total Bilirubin Direct Bilirubin AST ALT Alkaline Phosphatase Ammonia Troponin I High Sens 3.8 B-Natriuretic Peptide 85 Total Protein Albumin Lipase Urine Color Urine Appearance Urine pH Ur Specific [place] Urine Protein Urine Glucose (UA) Urine Ketones Urine Blood Urine Nitrite Ur Leukocyte Esterase Urine RBC Urine WBC Ur Squamous Epith Cells Ur Renal Epithelial Cell Other Crystals Urine Bacteria Hyaline Casts Urine Mucus Peritoneal WBC Peritoneal RBC Periton Neutrophils Periton Lymphocytes Peritoneal Monocytes Peritoneal Tot Protein Peritoneal LDH Peritoneal Glucose Ethyl Alcohol 208 COVID-19 (MAHAD) COVID-19 [employer] Com Blood Type Antibody Screen Crossmatch 02/16/20 02/16/20 02/16/20 18:24 19:38 20:45 MCV 96.9 MCH 33.8 H MCHC 34.8 RDW 20.0 H Plt Count 164 D MPV 10.3 Immature Gran % (Auto) 1.6 H Neut % (Auto) 87.0 H Lymph % (Auto) 5.1 L [place] % (Auto) 6.1 Eos % (Auto) 0.1 Baso % (Auto) 0.1 Lymph # (Auto) 0.8 L [place] # (Auto) 1.0 Eos # (Auto) 0.0 Baso # (Auto) 0.0 Abs Immat Gran (auto) 0.25 H Absolute Neuts (auto) 13.6 H Absolute Nucleated RBC 0.140 H Nucleated RBC % (auto) 0.9 H PT INR APTT Anion Gap Estim Creat Clear Calc Estimated GFR Random Glucose Calcium Magnesium Total Bilirubin Direct Bilirubin AST ALT Alkaline Phosphatase Ammonia 91 H Troponin I High Sens B-Natriuretic Peptide Total Protein Albumin Lipase Urine Color Urine Appearance Urine pH Ur Specific [place] Urine Protein Urine Glucose (UA) Urine Ketones Urine Blood Urine Nitrite Ur Leukocyte Esterase Urine RBC Urine WBC Ur Squamous Epith Cells Ur Renal Epithelial Cell Other Crystals Urine Bacteria Hyaline Casts Urine Mucus Peritoneal WBC Peritoneal RBC Periton Neutrophils Periton Lymphocytes Peritoneal Monocytes Peritoneal Tot Protein Peritoneal LDH Peritoneal Glucose Ethyl Alcohol COVID-19 (MAHAD) Negative COVID-19 Clin Com See Note Blood Type Antibody Screen Crossmatch 02/16/20 02/17/20 02/17/20 21:16 00:21 00:21 MCV 96.9 MCH 34.2 H MCHC 35.3 RDW 18.2 H Plt Count 152 L MPV 10.3 Immature Gran % (Auto) 1.5 H Neut % (Auto) 84.0 H Lymph % (Auto) 6.6 L [place] % (Auto) 7.6 Eos % (Auto) 0.2 Baso % (Auto) 0.1 Lymph # (Auto) 1.1 L [place] # (Auto) 1.3 H Eos # (Auto) 0.0 Baso # (Auto) 0.0 Abs Immat Gran (auto) 0.25 H Absolute Neuts (auto) 14.1 H Absolute Nucleated RBC 0.100 H Nucleated RBC % (auto) 0.6 H PT INR APTT Anion Gap 18 Estim Creat Clear Calc 63.8 Estimated GFR 58 Random Glucose 123 H Calcium 7.4 L Magnesium 1.8 Total Bilirubin Direct Bilirubin AST ALT Alkaline Phosphatase Ammonia Troponin I High Sens B-Natriuretic Peptide Total Protein Albumin Lipase Urine Color Urine Appearance Urine pH Ur Specific [place] Urine Protein Urine Glucose (UA) Urine Ketones Urine Blood Urine Nitrite Ur Leukocyte Esterase Urine RBC Urine WBC Ur Squamous Epith Cells Ur Renal Epithelial Cell Other Crystals Urine Bacteria Hyaline Casts Urine Mucus Peritoneal WBC Peritoneal RBC Periton Neutrophils Periton Lymphocytes Peritoneal Monocytes Peritoneal Tot Protein Peritoneal LDH Peritoneal Glucose Ethyl Alcohol COVID-19 (MAHAD) COVID-19 [employer] Blood Type O Positive Antibody Screen NEGATIVE Crossmatch See Detail 02/17/20 02/17/20 02/17/20 00:28 02:35 02:35 MCV MCH MCHC RDW Plt Count MPV Immature Gran % (Auto) Neut % (Auto) Lymph % (Auto) [place] % (Auto) Eos % (Auto) Baso % (Auto) Lymph # (Auto) [place] # (Auto) Eos # (Auto) Baso # (Auto) Abs Immat Gran (auto) Absolute Neuts (auto) Absolute Nucleated RBC Nucleated RBC % (auto) PT INR APTT Anion Gap Estim Creat Clear Calc Estimated GFR Random Glucose Calcium Magnesium Total Bilirubin Direct Bilirubin AST ALT Alkaline Phosphatase Ammonia Troponin I High Sens B-Natriuretic Peptide Total Protein Albumin Lipase Urine Color BROWN Urine Appearance HAZY Urine pH 6.5 Ur Specific [place] 1.015 Urine Protein 1+ H Urine Glucose (UA) 100 H Urine Ketones 15 Urine Blood 1+ H Urine Nitrite POS H Ur Leukocyte Esterase TRACE H Urine RBC 0-2 Urine WBC 0 Ur Squamous Epith Cells TRACE Ur Renal Epithelial Cell TRACE Other Crystals 2+ Urine Bacteria NONE Hyaline Casts 10-14 Urine Mucus 1+ Peritoneal WBC 0.099 Peritoneal RBC 0.002 Periton Neutrophils 48 Periton Lymphocytes 15 Peritoneal Monocytes 37 Peritoneal Tot Protein 0.8 Peritoneal LDH 38 Peritoneal Glucose 131 Ethyl Alcohol COVID-19 (MAHAD) COVID-19 [employer] Blood Type Antibody Screen Crossmatch Imaging Radiologist's Impressions: Impressions Abdomen/Pelvis CT 02/16/20 18:37 IMPRESSION: 1. Cirrhotic liver with moderate ascites, unchanged. 2. The right colon now appears edematous and some small-bowel loops remain thickened. This could be secondary to enteritis. 3. Other incidental findings as described above Assessment and Plan (1) Hepatic encephalopathy: Status: Acute (2) GIB (gastrointestinal bleeding): Status: Acute (3) Alcohol withdrawal: Qualifiers: Complication of substance-induced condition: uncomplicated Qualified Code(s): F10.230 - Alcohol dependence with withdrawal, uncomplicated Status: Acute (4) Abdominal ascites: Qualifiers: Ascites type: due to alcoholic cirrhosis Qualified Code(s): K70.31 - Alcoholic cirrhosis of liver with ascites Status: Acute (5) Anemia: Qualifiers: Anemia type: iron deficiency Iron deficiency anemia type: unspecified iron deficiency Qualified Code(s): D50.9 - Iron deficiency anemia, unspecified Status: Acute (6) Ascites controlled with medication: Status: Acute (7) History of Clostridioides difficile colitis: Status: Acute 59 male with alcoholism, cirrhosis of liver, treated in october for C diff here with diarrhea, abd pain,and electrolyties abnormalities and severe anemia and c diff positive. Acute blood loss anemia - T69--rhgrkv GIB upper more likely than lower -IV PPI -Transfuse and follow H/H -GI consult -avoid anticoagulants GIB (gastrointestinal bleeding) - K92.2--same as above Hypokalemia - E87.6, Replace as neede Hepatic encephalopathy - K72.90--mild add add low dose lactulose Coagulopathy - D68.9--give Vitamin K Ascites - R18.8--s/p paracentesis no SBP, restart diuretics when diarrhea is better Cirrhosis of liver - K74.60--Medicall management with diuretics, should avoid alcohol at all cost Clostridium difficile infection - A49.8 with diarrhea--Start PO vanco
[2020-02-17 08:12] LABS: OBS1 POS (NEG)
[2020-02-17 08:13] LABS: OBS Int Ctl Valid YES
[2020-02-17] MEDS: PHENobarbitaL 15 MG TABLET 45 MG PO ×2 (08:37→20:40)
--- NOTE | 2020-02-17 09:23 | PC.NURSE ---
called [facility] to give report, awaiting a call back at this time
[2020-02-17 09:28] LABS: Anion Gap 14 (12-20); Blood Urea Nitrogen 16 mg/dL (9-16); Calcium 7.7 mg/dL (8.4-10.2); Carbon Dioxide 27 mmol/L (22-29); Chloride 96 mmol/L (96-108); Estimated Glomerular Filt Rate > 60; Glucose Random 94 mg/dL (60-115); Potassium 3.3 mmol/l (3.3-5.1); Sodium 134 mmol/L (135-145)
[2020-02-17] MEDS: Pantoprazole Sodium 40 MG/10 ML VIAL IVPUSH (09:37)
--- NOTE | 2020-02-17 10:04 | PC.NURSE ---
report given to [facility] rn
[2020-02-17 10:41] LABS: CDIFF Ag Positive (Negative); CDiff Toxin Positive (Negative)
[2020-02-17 10:44] LABS: CDIFF Internal ctrl Dots and bkg OK (V)
--- NOTE | 2020-02-17 11:08 | PC.NURSE ---
pt is currently asleep, respirations even and unlabored. pt's room changed on [facility] due to coming back positive for c-diff. awating new room assignment
--- NOTE | 2020-02-17 12:48 | PC.NURSE ---
pt alert nad oriented, skin appropriate for ethnicity, pt reports left lower abd/pelvic pain that started last night, denies n/v/d but did state pain wraps to the back and noticed/felt something protruding/bulging in her vaginal area. pt also reprots haivng a sore on her coccyx area. there is a slit on the top on the glutial emily/coccyx split and noticeable slit about two inches long. per pt has been there about a month. chaperoned dr garcía during a pelvic exam, pt tolerated the procedure well. pt does have a prolapsed uterus
[2020-02-17] MEDS: vancomycin HCL 125 MG CAPSULE 250 MG PO ×2 (14:07→19:32)
[2020-02-17] MEDS: Phytonadione (Vit K1) 10 MG in 0.9 % Sodium Chloride 50 ML 51 MG IV (14:45)
[2020-02-17] MEDS: 0.9 % Sodium Chloride Flush 3 ML SYRINGE IVFLUSH (15:44)
[2020-02-17 16:29] LABS: Hematocrit 19.3 % (42-52); Hemoglobin 6.9 g/dl (14.0-18.0)
--- NOTE | 2020-02-17 17:28 | PM.EVENT ---
Event Note Date of Service: 02/17/20 Event Note: GI Consult-Full note dictated
--- NOTE | 2020-02-17 17:34 | PM.EVENT ---
Event Note Date of Service: 02/17/20 Event Note: GI Consult-Full note dictated Hx via patient, RN, and EMR. Imp: 59 yo male with longstanding and active EtOH abuse admitted with anemia, alcoholic hepatitis with jaundice, ascites, coagulopathy, and some encephalopathy. He also has a recurrent C.diff infection with diarrhea. He denies any bleeding at home and has had no bleeding here. He had an EGD in October with Dr. Holt revealing Jacy esophagitis and gastritis. EGD in the past with Dr. Storm revealed esophagitis, gastric ulcer, and duodenal ulcers. His paracentesis this AM showed a negative gram stain but no cell count was not done at that time. His abdominal exam is soft and NT. Rec: Supportive care. Agree with transfusions. No need for an upper endoscopy at this time given his recent EGD and no report of UGI bleeding, so his diet can be advanced as tolerated. He may need an eventual colonoscopy at some point if he stabilizes and improves medically. Continue PPI and Vancomycin. Would avoid steroids for the EtOH-hepatitis given the Cdiff infection, unless the liver function deteriorates. Resume diuretics as tolerated. Repeat paracentesis with cell count and diff if spikes a temp or clinically deteriorates. Call me if need be over the weekend, otherwise I will sign him out to [facility] on Wednesday for followup. Thanks
--- NOTE | 2020-02-17 19:11 | CONS_ITS ---
DATE OF SERVICE: REFERRING PHYSICIAN: Santo Mcintosh MD REASON FOR CONSULTATION: Alcohol-induced cirrhosis, anemia, and ascites. HISTORY OF PRESENT ILLNESS: The patient is a 59-year-old male with an unfortunate history of long-standing and current active alcohol abuse. He has had associated complications of that including liver disease with associated ascites and portal gastropathy. He came into the hospital yesterday due to active alcohol use as well as some jaundice, ascites, and anemia. The patient is able to provide history and answers questions appropriately. I also obtained some history from the nurse and the medical record. The patient denies any signs of bleeding. He has been having diarrhea and has had a recurrent positive C difficile study on this admission. There has been no hematochezia nor melena. He did have a paracentesis early this morning, but denies abdominal pain. He has been n.p.o. He is not hungry. He denies any nausea nor vomiting at home. He denies any chronic heartburn nor dysphagia. Here in the hospital, he has received a transfusion of a total of 3 units of blood. His present medications include phenobarbital, lactulose, vitamin K, potassium, vancomycin. His medications at home included furosemide 20 mg daily and Aldactone 50 mg daily. PAST MEDICAL HISTORY: Cirrhosis in relation to chronic alcohol abuse. He underwent upper endoscopy in October with Dr. Holt showing evidence of Jacy esophagitis, hiatal hernia, and gastritis. There was also portal gastropathy. Upper endoscopy with Dr. Storm in the past couple of years revealed evidence of esophagitis, gastric ulcer, and duodenal ulcers. He did have a previous sigmoid resection for diverticulitis. He thinks he may have had a colonoscopy in the distant past at [facility]. He does not recall the results of that. He has had right arm surgery. He denies history of [place], diabetes, nor stroke. SOCIAL HISTORY: He lives by himself. Alcohol as above with active drinking. He describes drinking at least a pint of vodka daily. He does smoke. PAST FAMILY HISTORY: Noncontributory. REVIEW OF SYSTEMS: CONSTITUTIONAL: He has been feeling poorly at home with fatigue and some anorexia. CARDIAC: No chest pain. PULMONARY: No cough. No hemoptysis. GASTROINTESTINAL: As above. URINARY: No dysuria. No hematuria. PHYSICAL EXAMINATION: GENERAL: The patient is a sleepy, but easily aroused male. He answers questions appropriately. SKIN: Warm and dry. HEENT: Icteric sclerae. NECK: Supple. ABDOMEN: Distended with ascites, but soft and nontender. There is no palpable mass or organomegaly. EXTREMITIES: Without edema. LABORATORY DATA: His CBC on admission showed hemoglobin of 5.4 compared to 10.6 back in November. MCV 97, platelets 164,000, hemoglobin was 6.9. His PT was 23.6 with INR 2.0. Normal electrolytes, BUN and creatinine today. His LFTs on February 15 showed a total bilirubin of 11.0, AST 77, ALT 12, alkaline phosphatase 143, and albumin of 2.2. Lipase was 93. His paracentesis ascites specimen had a negative Gram stain, but cell count was not done. Culture is pending. He did have a CAT scan of the abdomen and pelvis on admission describing cirrhosis with ascites. There is some edema in the right colon and small bowel, but without any obstruction, sign of abscess, nor any free air. There is no liver mass. The spleen actually appeared normal. IMPRESSION: The patient is a 59-year-old male with advanced liver disease in relation to chronic and ongoing alcohol abuse. He is admitted now with worsening anemia, ascites, coagulopathy, and jaundice with component of alcohol-induced hepatitis. His imaging study does not show any sign of biliary obstruction. His Gram stain does not show any sign of infection, although cell count was not done of the ascites. However, his abdominal exam is benign. Given the recent upper endoscopy in October, I do not think a repeat endoscopy is needed given the report of upper GI bleeding. I would hold off colonoscopy at this point given his significant medical issues in regard to his liver disease. At some point, if he stabilizes and improves, a colonoscopy can be discussed with him. I would recommend a repeat paracentesis with the cell count of the ascites if he develops fever or deteriorates clinically. However at this point, I will hold off on that. Resume his outpatient diuretics when stable. I think his diet can be advanced. I would add a PPI to his regimen. I would continue his vancomycin for the C diff and vitamin K to see if that could correct the INR. I would agree with the current transfusions and maintain hemoglobin of over 7.5 to 8.0 at least. I would hold off any type of prednisone for his alcohol-induced hepatitis given the C diff infection. Please contact me over the weekend if need arises. Otherwise, I shall sign him out to the [facility] on Wednesday. Thank you for this consult. MD YUE Chan/MARVA / [phone] MTDD
[2020-02-17] MEDS: Omeprazole 20 MG CAPSULE.DR PO (19:32)
[2020-02-18] VITALS (10 sets, daily range): BP systolic 102–126; BP diastolic 51–70; PULSE 105–118; RESP 18–20; TEMP 37.2–38.4; O2SAT 95–99
[2020-02-18] MEDS: vancomycin HCL 125 MG CAPSULE 250 MG PO ×5 (00:44→23:42)
[2020-02-18] MEDS: 0.9 % Sodium Chloride Flush 3 ML SYRINGE IVFLUSH ×4 (00:45→23:47)
--- NOTE | 2020-02-18 05:14 | PC.NURSE ---
blood transfusion started at 0135 and ended at 0342 with no adverse reactions. vital signs stable. However, while doing end transfusion documentation the system was showing still transfusing despite having ended, vitals taken and documentation at proper time of ending. assistance given from ed rn after seeking help from nursing engineering team supervisor.
[2020-02-18] MEDS: Omeprazole 20 MG CAPSULE.DR PO (05:56)
[2020-02-18 07:01] LABS: Ammonia 66 umol/L (13-55)
[2020-02-18 07:05] LABS: INTERNATIONAL NORM RATIO 1.8 (0.9-1.1); Prothrombin Time 21.3 SEC (10.8-13.0)
[2020-02-18 07:10] LABS: Alanine Aminotransferase 11 U/L (0-40); Albumin Level 2.3 g/dL (3.5-5.0); Alkaline Phosphatase 135 U/L (39-117); Aspartate Amino Transferase 82 U/L (5-37); Basophils Percent Auto 0.1 % (0-2); Bilirubin Direct 6.2 mg/dL (0.0-0.5); Bilirubin Total 11.4 mg/dL (0.0-1.0); Hemoglobin 9.3 g/dl (14.0-18.0); MANUAL DIFF FLAG SCAN; Mean Platelet Volume 10.4 fL (9.4-12.4); PLT CLUMP 1; SCAN SMEAR FLAG 1; Total Protein 6.9 g/dL (6.5-8.0)
[2020-02-18 07:13] LABS: Eosinophils Percent Auto 0.1 % (0-4); Hematocrit 26.5 % (42-52); Imm Gran Abs Auto 0.15 X10*3/uL (0.00-0.03); Lymphocytes Absolute Auto 1.2 X10*3/uL (1.2-4.9); Mean Corpuscular HGB Conc 35.1 g/dl (31.0-36.0); Mean Corpuscular Hemoglobin 31.8 pg (27.0-33.0); Mean Corpuscular Volume 90.8 fL (80-98); Monocytes Absolute Auto 1.3 X10*3/uL (0.1-1.2); Monocytes Percent Auto 9.3 % (2-11); Neutrophils Absolute Auto 11.7 X10*3/uL (2.0-8.3); Neutrophils Percent Auto 81.5 % (45-73); Platelet Count 130 X10*3/uL (160-400); Red Blood Count 2.92 X10*6/uL (4.60-5.80); Red Cell Distribution Width 17.5 % (11.0-16.0); White Blood Count 14.4 X10*3/uL (4.8-10.8)
[2020-02-18 07:19] LABS: Blood Urea Nitrogen 17 mg/dL (9-16); Calcium 7.7 mg/dL (8.4-10.2); Creatinine Clr Calc Pharmacy 73.7; Estimated Glomerular Filt Rate > 60; Glucose Random 98 mg/dL (60-115)
[2020-02-18 07:30] LABS: Anion Gap 13 (12-20); Carbon Dioxide 27 mmol/L (22-29); Chloride 93 mmol/L (96-108); Potassium 2.8 mmol/l (3.3-5.1); Sodium 130 mmol/L (135-145)
[2020-02-18 07:34] LABS: Magnesium 1.4 mg/dL (1.6-2.6)
[2020-02-18 07:49] LABS: SLIDE REVIEW VERIFIED
[2020-02-18] MEDS: PHENobarbitaL 15 MG TABLET 45 MG PO ×2 (09:22→21:04)
[2020-02-18] MEDS: Phytonadione (Vit K1) 10 MG in 0.9 % Sodium Chloride 50 ML 51 MG IV (10:18)
--- NOTE | 2020-02-18 10:27 | MHC.CM.PN ---
GA REPORTS HE LIVES ALONE AND IS FULLY INDEPENDENT WITH ALL CARE AND MOBILITY. PT DENIES HAVING ANY IN HOME SERVICES OR USING ANY DME. PT REPORTS HE HAS A HCP COMPLETED NAMING HIS MOTHER HIS AGENT. PREM AKINS IS PTS PCP. CURRENT DC PLAN IS HOME WITH NO SERVICES PT REPORTS HE HAS A RIDE HOME
--- NOTE | 2020-02-18 10:42 | P.PNIM_ITS ---
Subjective Subjective Date of Service: 02/18/20 Interval History: Seen in f/u for multiple issues includin anemia, c dif, electrolytes abnormalites, and alcohol withdrwal. He seems better, no confusion, no active bleed. H/H is better after transfusion. Review of Systems Gen: no fever Resp: no sob, no cough CV: no chest, no FERRER, no leg edema GI: No n/v, no abd pain, no rectal bleeding Neuro: No confusion Physical Exam Vital Signs: Vital Signs: Last Vital Signs Temp 99.4 F 02/18/20 03:43 Pulse 109 H 02/18/20 08:58 Resp 18 02/18/20 08:58 BP 111/56 L 02/18/20 08:58 Pulse Ox 97 02/18/20 08:58 Body Mass Index 23.6 Constitutional Awake and Alert, No apparent distress HEENT-sclera icteris Neck Supple, No lymphadenopathy Cardiovascular RRR, No M/R/G, S1 S2, No S3 S4, No pedal edema Respiratory Lungs clear, No respiratory distress Gastrointestinal Non tender, slight distention, has rectal tube Skin No rash Neurological Alert & oriented x3 Psychological flat affect Objective Data Current Medications Generic Name Dose Route Start Last Admin Trade Name Freq PRN Reason Stop Dose Admin Phytonadione 10 mg/ Sodium 51 mls @ 51 mls/hr 02/17/20 14:06 02/18/20 10:18 Chloride IV 02/19/20 09:59 51 mls/hr DAILY SHAUN Administration Medication 1 each 02/17/20 09:00 No Benzodiazepines MISCELLANE DAILY [facility] Omeprazole 20 mg 02/17/20 17:20 02/18/20 05:56 Omeprazole 20 Mg Capsule. PO 20 mg DAILY@0630 SHAUN Administration Phenobarbital 45 mg 02/17/20 09:00 02/18/20 09:22 Phenobarbital 15 Mg Tablet PO 02/18/20 21:01 45 mg BID SHAUN Administration Phenobarbital 15 mg 02/19/20 09:00 Phenobarbital 15 Mg Tablet PO 02/20/20 21:01 BID SHAUN Phenobarbital 15 mg 02/21/20 09:00 Phenobarbital 15 Mg Tablet PO 02/22/20 09:01 DAILY SHAUN Sodium Chloride 3 ml 02/17/20 16:00 02/18/20 09:22 0.9 % Sodium Chloride Flush 3 Ml Syringe IVFLUSH 3 ml QSHIFT SHAUN Administration Vancomycin HCl 250 mg 02/17/20 12:00 02/18/20 05:57 Vancomycin Hcl 125 Mg Capsule PO 250 mg Q6H SHAUN Administration Labs CBC & Chem 7: 02/18/20 06:05 02/18/20 06:05 Microbiology Microbiology Results: Microbiology 02/16/20 19:30 Blood - Venous Blood Culture - Preliminary No growth after 24 hours. 02/16/20 19:30 Blood - Venous Blood Culture - Preliminary No growth after 24 hours. 02/17/20 02:35 Abdominal Fluid Gram Stain - Final Assessment and Plan (1) Hepatic encephalopathy: Status: Acute (2) GIB (gastrointestinal bleeding): Status: Acute (3) Alcohol withdrawal: Status: Acute (4) Abdominal ascites: Status: Acute (5) Anemia: Status: Acute (6) Ascites controlled with medication: Status: Acute (7) History of Clostridioides difficile colitis: Status: Acute Assessment and Plan: 59 male with alcoholism, cirrhosis of liver, treated in october for C diff here with diarrhea, abd pain,and electrolyties abnormalities and severe anemia and c diff positive. Acute blood loss anemia - Z73--rptnaa GIB upper more likely than lower -IV PPI -Transfused 4 units hgb up to 9 from 5 -GI saw him, had EGD in October, Dr. Holt to see tomorrow -avoid anticoagulants, NSAID GIB (gastrointestinal bleeding) - K92.2--same as above Hypokalemia - E87.6, K is still low. Will give some IV and PO Hypomagnesemia--IV Mag Hepatic encephalopathy - K72.90--mild add add low dose lactulose Coagulopathy - D68.9--give Vitamin K Ascites - R18.8--s/p paracentesis no SBP, restart diuretics when diarrhea is better Cirrhosis of liver - K74.60--Medicall management with diuretics, should avoid alcohol at all cost Clostridium difficile infection - A49.8/ with diarrhea--PO Vanco 250 daily D2/14, Has rectal tube DVT prophylaxis with compression device d/t high INR and coagulopathy and anemia and likely gib
[2020-02-18] MEDS: Potassium Chloride Packet 20 MEQ PACKET 40 MEQ PO ×2 (11:45→18:48)
[2020-02-18] MEDS: Potassium Chloride/H20 10 MEQ/100 ML PIGGYBACK 100 MEQ IV ×2 (11:59→13:40)
[2020-02-18] MEDS: Magnesium Sulfate/H2O 2 GM/50 ML PIGGYBACK IV ×2 (12:05→14:46)
--- NOTE | 2020-02-18 17:35 | PC.NURSE ---
pt temperature 100.4 to 101.2, Eugenia made aware, said to monitor temp. Recheck of temp is 100.9. pt is resting comfortably. will continue to monitor temp.
[2020-02-19] VITALS (8 sets, daily range): BP systolic 92–113; BP diastolic 58–70; PULSE 100–112; RESP 18–20; TEMP 36.2–37.7; O2SAT 96–99
[2020-02-19] MEDS: Potassium Chloride Packet 20 MEQ PACKET 40 MEQ PO ×3 (02:50→18:46)
[2020-02-19] MEDS: Omeprazole 20 MG CAPSULE.DR PO (05:52)
[2020-02-19] MEDS: vancomycin HCL 125 MG CAPSULE 250 MG PO ×3 (05:52→18:46)
[2020-02-19 08:28] LABS: MANUAL DIFF FLAG NO
[2020-02-19 08:46] LABS: Basophils Percent Auto 0.1 % (0-2); Eosinophils Absolute Auto 0.1 X10*3/uL (0.0-0.4); Eosinophils Percent Auto 0.3 % (0-4); Hematocrit 25.9 % (42-52); Imm Gran Abs Auto 0.09 X10*3/uL (0.00-0.03); Imm Gran Pct Auto 0.6 % (0.0-0.4); Lymphocytes Absolute Auto 1.2 X10*3/uL (1.2-4.9); Lymphocytes Percent Auto 7.8 % (20-40); Mean Corpuscular HGB Conc 34.7 g/dl (31.0-36.0); Mean Corpuscular Hemoglobin 32.3 pg (27.0-33.0); Mean Corpuscular Volume 92.8 fL (80-98); Mean Platelet Volume 10.5 fL (9.4-12.4); Monocytes Absolute Auto 1.2 X10*3/uL (0.1-1.2); Monocytes Percent Auto 7.4 % (2-11); NRBC Pct Auto 0.4 /100WBC (0.0-0.2); Neutrophils Absolute Auto 13.2 X10*3/uL (2.0-8.3); Neutrophils Percent Auto 83.8 % (45-73); Platelet Count 114 X10*3/uL (160-400); Red Blood Count 2.79 X10*6/uL (4.60-5.80); Red Cell Distribution Width 19.4 % (11.0-16.0); White Blood Count 15.8 X10*3/uL (4.8-10.8)
[2020-02-19 08:54] LABS: Calcium 7.7 mg/dL (8.4-10.2)
[2020-02-19 08:55] LABS: Blood Urea Nitrogen 16 mg/dL (9-16); Creatinine Clr Calc Pharmacy 78.7; Estimated Glomerular Filt Rate > 60; Glucose Random 125 mg/dL (60-115); Magnesium 2.2 mg/dL (1.6-2.6)
[2020-02-19 09:02] LABS: Anion Gap 11 (12-20); Carbon Dioxide 26 mmol/L (22-29); Chloride 93 mmol/L (96-108); Potassium 4.2 mmol/l (3.3-5.1); Sodium 126 mmol/L (135-145)
[2020-02-19] MEDS: PHENobarbitaL 15 MG TABLET PO ×2 (09:41→22:03)
[2020-02-19] MEDS: 0.9 % Sodium Chloride Flush 3 ML SYRINGE IVFLUSH ×2 (09:41→18:48)
[2020-02-19] MEDS: Phytonadione (Vit K1) 10 MG in 0.9 % Sodium Chloride 50 ML 51 MG IV (09:46)
[2020-02-19 10:29] LABS: Cancel Lactic Acid Canceled
--- NOTE | 2020-02-19 11:40 | P.PNIM_ITS ---
Subjective Subjective Date of Service: 02/19/20 Interval History: still with diarrhea, no pain, didnt feel fevers yesterday Cardiovascular Cardiovascular: Reports no additional cardiovascular complaints Respiratory Respiratory: Reports no additional respiratory complaints Physical Exam Vital Signs: Vital Signs: Last Vital Signs Temp 98.2 F 02/19/20 11:29 Pulse 100 02/19/20 11:29 Resp 20 02/19/20 11:29 BP 100/60 02/19/20 11:29 Pulse Ox 98 02/19/20 11:29 Body Mass Index 23.6 General: AO X 3, no acute distress Resp: CTA bilateral CVS: S1,S2,RRR GI: soft, non tender, distended Neuro: motor grossly intact Psych: appropriate affect Objective Data Current Medications Generic Name Dose Route Start Last Admin Trade Name Freq PRN Reason Stop Dose Admin Loperamide HCl 2 mg 02/19/20 10:27 Loperamide Hcl 2 Mg Capsule PO Q4H PRN diarrhea Medication 1 each 02/17/20 09:00 No Benzodiazepines MISCELLANE DAILY [facility] Nicotine 21 mg 02/19/20 11:45 Nicotine 21 Mg Patch.Td24 TRANSDERMA DAILY [facility] Omeprazole 20 mg 02/17/20 17:20 02/19/20 05:52 Omeprazole 20 Mg Capsule.Dr PO 20 mg DAILY@0630 [facility] Administration Phenobarbital 15 mg 02/19/20 09:00 02/19/20 09:41 Phenobarbital 15 Mg Tablet PO 02/20/20 21:01 15 mg BID SHAUN Administration Phenobarbital 15 mg 02/21/20 09:00 Phenobarbital 15 Mg Tablet PO 02/22/20 09:01 DAILY [facility] Potassium Chloride 40 meq 02/18/20 11:00 02/19/20 09:40 Potassium Chloride Packet 20 Meq Packet PO 40 meq Q8H SHAUN Administration Sodium Chloride 3 ml 02/17/20 16:00 02/19/20 09:41 0.9 % Sodium Chloride Flush 3 Ml Syringe IVFLUSH 3 ml QSHIFT SHAUN Administration Vancomycin HCl 250 mg 02/17/20 12:00 02/19/20 05:52 Vancomycin Hcl 125 Mg Capsule PO 250 mg Q6H SHAUN Administration Labs CBC & Chem 7: 02/19/20 08:14 02/19/20 08:14 Microbiology Microbiology Results: Microbiology 02/17/20 02:35 Abdominal Fluid Gram Stain - Final 02/17/20 02:35 Abdominal Fluid Routine Culture - Final No growth after 2 days 02/16/20 19:30 Blood - Venous Blood Culture - Preliminary No growth after 48 hours. 02/16/20 19:30 Blood - Venous Blood Culture - Preliminary No growth after 48 hours. 02/17/20 00:00 Urine clean catch - Clean Catch Midstream Urine Culture - Final Assessment and Plan (1) Hepatic encephalopathy: Status: Acute (2) GIB (gastrointestinal bleeding): Status: Acute (3) Alcohol withdrawal: Status: Acute (4) Abdominal ascites: Status: Acute (5) Anemia: Status: Acute (6) Ascites controlled with medication: Status: Acute (7) History of Clostridioides difficile colitis: Status: Acute Assessment and Plan: 59 male with alcoholism, cirrhosis of liver, treated in october for C diff here with diarrhea, abd pain,and electrolyties abnormalities and severe anemia and c diff positive. Acute blood loss anemia - -likely GIB upper more likely than lower continue IV PPI -Transfused 4 units hgb up to 9 from 5 and stable -GI saw him, had EGD in October, Dr. Holt to see today -avoid anticoagulants, NSAID fever yesterday isolated, could be from cdif, or translocation conitnue vanco po check cultures Hepatic encephalopathy mild lactulose alcoholic liver cirhosis with acute hepatitis and Ascites - s/p paracentesis no SBP cdif colitisi po vanco day 3, imodium now that he has received several days of abx
[2020-02-19] MEDS: Nicotine 21 MG PATCH.TD24 TRANSDERMA (11:51)
--- NOTE | 2020-02-19 15:19 | MHC.CM.PN ---
spoke with pt about pphysical therapies receommendatio for str ,pt dis agree to str referrals will be made
--- NOTE | 2020-02-19 18:39 | PM.EVENT ---
Event Note Date of Service: 02/19/20 Event Note: 59 YM with known history of long standing ETOH abuse, kidney stones, tobacco abuse with ESLD complicated by ascites, portal gastropathy, thrombocytopenia and coagulopathy. Pt admitted on 02/16/20 due to active alcohol use, jaundice, ascites, and worsening anemia. The patient denies any signs of bleeding. He has been having diarrhea and has had a recurrent positive C difficile study on this admission. Pt denies recent hematochezia nor melena. No SBP on AF analysis on 04/19/19. His H & H has been stable after transfusion of a total of 3 units of PRBCs. PAST MEDICAL HISTORY BY REVIEW OF MEDICAL RECORDS: Flexible Sig was performed in 07/[address] Armstrong when he was admitted with abdominal pain. 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 No findings siuggestive of ulcerative colitis were noted on Flexible Sigmoidoscopy or during colon surgery. RECOMMENDATIONS: 1. Continue monitoring H & H once daily. 2. Continue PPI. 3. PO vancomycin x 10 days for C Diff colitis. 4. If he has recurrent decline in H & H, he will be scheduled for a repeat EGD to rule out recurrent PUD. 5. Pt was advised to quit drinking and he stated that he has been attending AA meeting 2-3 times a week with his brother.
[2020-02-20] VITALS (7 sets, daily range): BP systolic 92–152; BP diastolic 54–70; PULSE 66–108; RESP 18; TEMP 36.3–37.6; O2SAT 95–99
[2020-02-20] MEDS: vancomycin HCL 125 MG CAPSULE 250 MG PO ×5 (00:11→23:52)
[2020-02-20] MEDS: Potassium Chloride Packet 20 MEQ PACKET 40 MEQ PO (03:21)
[2020-02-20] MEDS: Omeprazole 20 MG CAPSULE.DR PO (05:33)
[2020-02-20 06:48] LABS: INTERNATIONAL NORM RATIO 1.8 (0.9-1.1); Prothrombin Time 21.5 SEC (10.8-13.0)
[2020-02-20 06:49] LABS: MANUAL DIFF FLAG SCAN; PLT CLUMP 1; SCAN SMEAR FLAG 1
[2020-02-20 06:52] LABS: Basophils Percent Auto 0.1 % (0-2); Eosinophils Absolute Auto 0.1 X10*3/uL (0.0-0.4); Eosinophils Percent Auto 0.5 % (0-4); Hematocrit 26.8 % (42-52); Hemoglobin 9.2 g/dl (14.0-18.0); Imm Gran Abs Auto 0.13 X10*3/uL (0.00-0.03); Lymphocytes Absolute Auto 0.9 X10*3/uL (1.2-4.9); Mean Corpuscular HGB Conc 34.3 g/dl (31.0-36.0); Mean Corpuscular Hemoglobin 32.6 pg (27.0-33.0); Monocytes Percent Auto 7.6 % (2-11); NRBC Pct Auto 0.2 /100WBC (0.0-0.2); Neutrophils Absolute Auto 11.3 X10*3/uL (2.0-8.3); Neutrophils Percent Auto 83.8 % (45-73); Red Blood Count 2.82 X10*6/uL (4.60-5.80); Red Cell Distribution Width 19.7 % (11.0-16.0); White Blood Count 13.5 X10*3/uL (4.8-10.8)
[2020-02-20 07:13] LABS: Magnesium 1.9 mg/dL (1.6-2.6)
[2020-02-20 07:46] LABS: Alanine Aminotransferase 15 U/L (0-40); Albumin Level 1.9 g/dL (3.5-5.0); Alkaline Phosphatase 131 U/L (39-117); Anion Gap 12 (12-20); Aspartate Amino Transferase 97 U/L (5-37); Bilirubin Direct 5.2 mg/dL (0.0-0.5); Bilirubin Total 8.8 mg/dL (0.0-1.0); Blood Urea Nitrogen 14 mg/dL (9-16); Calcium 7.4 mg/dL (8.4-10.2); Carbon Dioxide 25 mmol/L (22-29); Chloride 95 mmol/L (96-108); Creatinine Clr Calc Pharmacy 91.1; Estimated Glomerular Filt Rate > 60; Glucose Fasting 90 mg/dL (60-99); Magnesium 1.9 mg/dL (1.6-2.6); Potassium 6.1 mmol/l (3.3-5.1); Sodium 126 mmol/L (135-145); Total Protein 6.7 g/dL (6.5-8.0)
[2020-02-20 08:14] LABS: SLIDE REVIEW VERIFIED
[2020-02-20] MEDS: Nicotine 21 MG PATCH.TD24 TRANSDERMA (08:17)
[2020-02-20] MEDS: Sodium Polystyrene Sulfon/Sorb 15 GM/60 ML ORAL.SUSP PO (08:17)
[2020-02-20] MEDS: PHENobarbitaL 15 MG TABLET PO ×2 (08:18→21:22)
[2020-02-20] MEDS: 0.9 % Sodium Chloride Flush 3 ML SYRINGE IVFLUSH ×4 (08:19→23:52)
--- NOTE | 2020-02-20 11:05 | PC.NURSE ---
pharmacy after being contacted finally brought up scheduled insulin for 7:54 at 11:05
--- NOTE | 2020-02-20 11:56 | HO.PM.IMPN ---
Subjective Subjective Date of Service: 02/20/20 Interval History: diarrhea Cardiovascular Cardiovascular: Reports no additional cardiovascular complaints Respiratory Respiratory: Reports no additional respiratory complaints Physical Exam Vital Signs: Vital Signs: Last Vital Signs Temp 97.3 F 02/20/20 07:54 Pulse 66 02/20/20 08:34 Resp 18 02/20/20 07:54 BP 106/58 L 02/20/20 08:34 Pulse Ox 98 02/20/20 08:34 Body Mass Index 23.6 General: AO X 3, no acute distress, juandice Resp: CTA bilateral CVS: S1,S2,RRR GI: soft, non tender, distended Neuro: motor grossly intact Psych: appropriate affect Objective Data Current Medications Generic Name Dose Route Start Last Admin Trade Name Freq PRN Reason Stop Dose Admin Loperamide HCl 2 mg 02/19/20 10:27 Loperamide Hcl 2 Mg Capsule PO Q4H PRN diarrhea Medication 1 each 02/17/20 09:00 No Benzodiazepines MISCELLANE DAILY SHAUN Nicotine 21 mg 02/19/20 11:45 02/20/20 08:17 Nicotine 21 Mg Patch.Td24 TRANSDERMA 21 mg DAILY SHAUN Administration Omeprazole 20 mg 02/17/20 17:20 02/20/20 05:33 Omeprazole 20 Mg Capsule.Dr PO 20 mg DAILY@0630 SHAUN Administration Phenobarbital 15 mg 02/19/20 09:00 02/20/20 08:18 Phenobarbital 15 Mg Tablet PO 02/20/20 21:01 15 mg BID SHAUN Administration Phenobarbital 15 mg 02/21/20 09:00 Phenobarbital 15 Mg Tablet PO 02/22/20 09:01 DAILY SHAUN Sodium Chloride 3 ml 02/17/20 16:00 02/20/20 08:19 0.9 % Sodium Chloride Flush 3 Ml Syringe IVFLUSH 3 ml QSHIFT SHAUN Administration Vancomycin HCl 250 mg 02/17/20 12:00 02/20/20 05:33 Vancomycin Hcl 125 Mg Capsule PO 250 mg Q6H SHAUN Administration Labs CBC & Chem 7: 02/20/20 05:53 02/20/20 05:53 Microbiology Microbiology Results: Microbiology 02/19/20 09:07 Blood - Venous Blood Culture - Preliminary No growth after 24 hours. 02/19/20 09:06 Blood - Venous Blood Culture - Preliminary No growth after 24 hours. 02/17/20 02:35 Abdominal Fluid Gram Stain - Final 02/17/20 02:35 Abdominal Fluid Routine Culture - Final No growth after 2 days 02/16/20 19:30 Blood - Venous Blood Culture - Preliminary No growth after 48 hours. 02/16/20 19:30 Blood - Venous Blood Culture - Preliminary No growth after 48 hours. 02/17/20 00:00 Urine clean catch - Clean Catch Midstream Urine Culture - Final Assessment and Plan (1) Hepatic encephalopathy: Status: Acute (2) GIB (gastrointestinal bleeding): Status: Acute (3) Alcohol withdrawal: Status: Acute (4) Abdominal ascites: Status: Acute (5) Anemia: Status: Acute (6) Ascites controlled with medication: Status: Acute (7) History of Clostridioides difficile colitis: Status: Acute Assessment and Plan: 59 male with alcoholism, cirrhosis of liver, treated in october for C diff here with diarrhea, abd pain,and electrolyties abnormalities and severe anemia and c diff positive. Acute blood loss anemia - -likely GIB upper more likely than lower continue IV PPI -Transfused 4 units hgb up to 9 from 5 and stable monitor -avoid anticoagulants, NSAID fever yesterday isolated, could be from cdif, or translocation conitnue vanco po check cultures hasnt recurred hyperkalemia cyn exylate, hold imodium today, monitor bmp Hepatic encephalopathy mild lactulose alcoholic liver cirhosis with acute hepatitis and Ascites - s/p paracentesis no SBP cdif colitisi po vanco day 4, imodium now that he has received several days of abx (once k normal)
[2020-02-20 12:45] LABS: Anion Gap 11 (12-20); Blood Urea Nitrogen 14 mg/dL (9-16); Calcium 7.4 mg/dL (8.4-10.2); Carbon Dioxide 22 mmol/L (22-29); Chloride 96 mmol/L (96-108); Creatinine Clr Calc Pharmacy 87.2; Estimated Glomerular Filt Rate > 60; Glucose Fasting 113 mg/dL (60-99); Potassium 5.1 mmol/l (3.3-5.1); Sodium 124 mmol/L (135-145)
[2020-02-21] VITALS (7 sets, daily range): BP systolic 100–110; BP diastolic 59–69; PULSE 94–103; RESP 18; TEMP 36.4–37.3; O2SAT 96–99
[2020-02-21] MEDS: vancomycin HCL 125 MG CAPSULE 250 MG PO ×4 (05:50→23:54)
[2020-02-21] MEDS: Omeprazole 20 MG CAPSULE.DR PO (05:51)
[2020-02-21 06:53] LABS: MANUAL DIFF FLAG SCAN; Mean Platelet Volume 10.3 fL (9.4-12.4); PLT CLUMP 1; SCAN SMEAR FLAG 1
[2020-02-21 06:55] LABS: Basophils Percent Auto 0.3 % (0-2); Eosinophils Absolute Auto 0.1 X10*3/uL (0.0-0.4); Eosinophils Percent Auto 0.8 % (0-4); Hematocrit 25.4 % (42-52); Hemoglobin 8.8 g/dl (14.0-18.0); Imm Gran Pct Auto 0.9 % (0.0-0.4); Lymphocytes Absolute Auto 1.1 X10*3/uL (1.2-4.9); Lymphocytes Percent Auto 9.1 % (20-40); Mean Corpuscular HGB Conc 34.6 g/dl (31.0-36.0); Mean Corpuscular Hemoglobin 33.2 pg (27.0-33.0); Mean Corpuscular Volume 95.8 fL (80-98); Monocytes Absolute Auto 1.4 X10*3/uL (0.1-1.2); Monocytes Percent Auto 11.7 % (2-11); Neutrophils Absolute Auto 9.1 X10*3/uL (2.0-8.3); Neutrophils Percent Auto 77.2 % (45-73); Red Blood Count 2.65 X10*6/uL (4.60-5.80); Red Cell Distribution Width 20.4 % (11.0-16.0); White Blood Count 11.7 X10*3/uL (4.8-10.8)
[2020-02-21 06:56] LABS: INTERNATIONAL NORM RATIO 1.7 (0.9-1.1); Prothrombin Time 20.7 SEC (10.8-13.0)
[2020-02-21 07:43] LABS: Platelet Count 98 X10*3/uL (160-400)
[2020-02-21 07:44] LABS: SLIDE REVIEW VERIFIED
[2020-02-21] MEDS: Nicotine 21 MG PATCH.TD24 TRANSDERMA (07:44)
[2020-02-21] MEDS: 0.9 % Sodium Chloride Flush 3 ML SYRINGE IVFLUSH ×3 (07:44→23:54)
[2020-02-21] MEDS: PHENobarbitaL 15 MG TABLET PO (07:45)
[2020-02-21 08:04] LABS: Alanine Aminotransferase 19 U/L (0-40); Alkaline Phosphatase 125 U/L (39-117); Bilirubin Direct 4.8 mg/dL (0.0-0.5); Bilirubin Total 8.2 mg/dL (0.0-1.0); Blood Urea Nitrogen 12 mg/dL (9-16); Carbon Dioxide 22 mmol/L (22-29); Chloride 94 mmol/L (96-108); Creatinine Clr Calc Pharmacy 92.1; Estimated Glomerular Filt Rate > 60; Glucose Fasting 92 mg/dL (60-99); Potassium 4.8 mmol/l (3.3-5.1); Total Protein 6.4 g/dL (6.5-8.0)
[2020-02-21 08:05] LABS: Albumin Level 1.8 g/dL (3.5-5.0); Aspartate Amino Transferase 102 U/L (5-37); Calcium 7.2 mg/dL (8.4-10.2)
[2020-02-21 08:10] LABS: Anion Gap 12 (12-20); Sodium 123 mmol/L (135-145)
--- NOTE | 2020-02-21 09:57 | P.DS_ITS ---
DS: Providers Provider Date of admission: 02/17/20 08:50 Primary care physician: Jarvis Ovalle MD Consults: 02/17/20 07:55 Consult to Gastroenterology Routine Consulting Provider: George Cardoso Reason for consultation: GIB, acute blood loss anemia Has provider been notified: No DS: Diagnosis Discharge Diagnosis (1) Hepatic encephalopathy: Status: Acute (2) GIB (gastrointestinal bleeding): Status: Acute (3) Alcohol withdrawal: Status: Acute (4) Abdominal ascites: Status: Acute (5) Anemia: Status: Acute (6) Ascites controlled with medication: Status: Acute (7) History of Clostridioides difficile colitis: Status: Acute (8) C. difficile colitis: Status: Acute Problem details: Moderate severity,no shock (9) Bacteremia: Status: Acute DS: Medications Discharge Medications Home Medications: Home Medications Medication Instructions Recorded Confirmed cholecalciferol (vitamin D3) 1,250 1,250 mcg PO QWEEK 12/28/19 02/16/20 mcg (50,000 unit) capsule spironolactone 50 mg tablet 50 mg PO DAILY 12/28/19 02/16/20 Previous Rx's Medication Instructions Recorded folic acid 1 mg tablet 1 mg PO DAILY #30 tab 12/28/19 thiamine HCl (vitamin B1) 100 mg 100 mg PO DAILY 30 Days #30 tab 12/28/19 tablet loperamide 2 mg PO Q4H PRN #20 cap 02/21/20 omeprazole 20 mg PO DAILY@0630 #30 cap 02/21/20 vancomycin 125 mg PO Q6H 6 Days #24 cap 02/21/20 DS: Summary Hospital Course Hospital Course: date of service: 02/25/2020 Patient was admitted for C diff colitis, hepatic encephalopathy, alcoholic hepatitis in the setting of alcoholic cirrhosis, alcohol withdrawal. He was given po vancomycin and phenobarbital. His diarrhea improved, he was also started on Imodium after several days of p.o. Vanco. He will complete 6 more days vancomycin. Patient was also noted to have severe anemia without active bleed. Hemoglobin of 5.4, improved to 9.3 after 4 units. And remained stable. He was seen by Gastroenterology who recommended PPI, given stability did not recommend further scoping at this time. his encephalopahty and withdrawl resolved. he was noted to have tense ascites, he underwent 2 paracenteses, no evidence of SBP was found. patient was also noted to have fusiform bacteremia, likely gi translocation, ID recommended 10 days of oral flagyl. patient is feeling better and will be discharged home. Time Spent with Patient Time attestation: Total time spent providing and/or coordinating discharge services: Physical Exam Vital Signs: Vital Signs: Last Vital Signs Temp 98.2 F 02/21/20 07:51 Pulse 96 02/21/20 09:26 Resp 18 02/21/20 07:51 BP 101/66 02/21/20 09:26 Pulse Ox 98 02/21/20 09:26 Body Mass Index 23.6 General: AO X 3, no acute distress, juandice Resp: CTA bilateral CVS: S1,S2,RRR GI: soft, non tender, non distended Neuro: motor grossly intact Psych: appropriate affect DS: Data Data Completed and Pending Labs on day of discharge: 02/16/20 17:55 Consult Rx EtOH Phenob Dosing 1 each MISCELLANE ONCE ONE 02/16/20 17:56 ECG 12 lead EKG Stat EKG Documentation DIRECTED 02/16/20 18:00 0.9 % Sodium Chloride [Ns] 1,000 ml Folic Acid 1 mg Thiamine HCL 100 mg MVI, Adult [Infuvite Adult] 10 ml IV 999 mls/hr 02/16/20 18:15 PHENobarbitaL sodium 350 mg IM ONCE ONE 02/16/20 18:23 B Type Natriuretic Peptide Stat Basic Metabolic Panel Stat Ethanol Stat Lipase Stat Liver Panel Stat Magnesium Stat Partial Thromboplastin Time Stat Prothrombin Time INR Stat Troponin-I High Sensitivity Stat 02/16/20 18:24 Ammonia Stat 02/16/20 18:37 CT abdomen pelvis wo con Stat 02/16/20 19:17 Lactulose [Chronulac] 60 gm PO ONCE ONE Magnesium Sulfate/H2O 2 gm in 50 ml IV ONCE Potassium Chloride ER [Klor-Con] 60 meq PO ONCE ONE 02/16/20 19:38 Complete Blood Count Auto Diff Stat 02/16/20 20:30 0.9 % Sodium Chloride [Ns] 1,000 ml IV 999 mls/hr 02/16/20 20:45 COVID-19 ID NOW (Guerra) Stat 02/16/20 21:00 PHENobarbitaL sodium 260 mg IM Q3H 02/16/20 21:16 Red Blood Cells Stat Type and Screen Stat 02/16/20 23:00 PHENobarbitaL sodium 260 mg IM Q3H 02/16/20 23:03 Basic Metabolic Panel Stat Complete Blood Count Auto Diff Stat Magnesium Stat 02/16/20 23:30 PHENobarbitaL sodium 130 mg IM Q3H 02/17/20 00:00 Urine Culture Routine 02/17/20 00:06 Lidocaine HCl 2 % Urojet [Xylocaine 2 % Urojet] 10 ml TOPICAL ONCE ONE 02/17/20 00:09 Lidocaine HCl 2 % Urojet [Xylocaine 2 % Urojet] 10 ml .ROUTE .STK-MED ONE 02/17/20 01:48 Albumin Human 25 % [Kedbumin 25 %] 100 ml IV ONCE 02/17/20 02:00 Potassium Chloride/H20 10 meq in 100 ml IV Q1H 02/17/20 02:02 Lidocaine HCl 2 % MPF [Xylocaine 2 % MPF] 10 ml INFILTRATI ONCE ONE 02/17/20 02:05 Lidocaine HCl 2 % MPF [Xylocaine 2 % MPF] 5 ml .ROUTE .STK-MED ONE 02/17/20 02:[address] wDiff Peritoneal FL Stat Glucose Peritoneal Fluid Stat LDH Peritoneal Fluid Stat Total Protein Peritoneal Fluid Stat Routine Culture w Gram Stain Stat 02/17/20 07:57 CDiff with Reflex to PCR Stat OBSX1 Stat 02/17/20 08:45 Pantoprazole Sodium [Protonix] 40 mg IVPUSH BID ONE 02/17/20 08:46 Transfer Order Routine 02/17/20 08:50 Basic Metabolic Panel Stat 02/17/20 09:00 PHENobarbitaL 45 mg PO BID 02/17/20 Breakfast NPO Diet 02/17/20 14:06 Phytonadione (Vit K1) [Vitamin K] 10 mg 0.9 % Sodium Chloride [Ns] 50 ml IV DAILY 02/17/20 14:54 RT Smoking Initial Cessation ONCE 02/17/20 16:16 Hemoglobin and Hematocrit Routine 02/18/20 06:05 Ammonia Routine Basic Metabolic Panel DAILY@0600 Complete Blood Count Auto Diff DAILY@0600 Liver Panel Routine Magnesium DAILY Prothrombin Time INR Routine SLIDE REVIEW Routine 02/18/20 11:00 Magnesium Sulfate/H2O 2 gm in 50 ml IV Q1H Potassium Chloride Packet [Klor-Con Packet] 40 meq PO Q8H 02/18/20 11:15 Potassium Chloride/H20 10 meq in 100 ml IV Q1H 02/19/20 08:14 Basic Metabolic Panel DAILY@0600 Complete Blood Count Auto Diff DAILY@0600 Magnesium DAILY 02/19/20 09:00 PHENobarbitaL 15 mg PO BID 02/19/20 10:11 Cancel Lactic Acid Routine 02/20/20 05:53 BMP [Basic Metabolic Panel Fasting] Routine Complete Blood Count Auto Diff Routine Liver Panel Routine Magnesium DAILY Magnesium Routine Prothrombin Time INR Routine SLIDE REVIEW Routine 02/20/20 07:53 Sodium Polystyrene Sulfon/Sorb [Kayexalate] 15 gm PO ONCE ONE 02/20/20 07:54 Dextrose 50 % [D50] 25 gm IVPUSH ONCE ONE Insulin Regular, Human [Humulin R] 10 unit IVPUSH ONCE ONE 02/20/20 11:55 BMP [Basic Metabolic Panel Fasting] Routine 02/21/20 05:47 BMP [Basic Metabolic Panel Fasting] Routine Complete Blood Count Auto Diff Routine Liver Panel Routine Prothrombin Time INR Routine SLIDE REVIEW Routine Laboratory Last Values WBC 11.7 X10*3/uL (4.8-10.8) H 02/21/20 05:47 RBC 2.65 X10*6/uL (4.60-5.80) L 02/21/20 05:47 Hgb 8.8 g/dl (14.0-18.0) L 02/21/20 05:47 Hct 25.4 % (42-52) L 02/21/20 05:47 MCV 95.8 fL (80-98) 02/21/20 05:47 MCH 33.2 pg (27.0-33.0) H 02/21/20 05:47 MCHC 34.6 g/dl (31.0-36.0) 02/21/20 05:47 RDW 20.4 % (11.0-16.0) H 02/21/20 05:47 Plt Count 98 X10*3/uL (160-400) L 02/21/20 05:47 MPV 10.3 fL (9.4-12.4) 02/21/20 05:47 Immature Gran % (Auto) 0.9 % (0.0-0.4) H 02/21/20 05:47 Neut % (Auto) 77.2 % (45-73) H 02/21/20 05:47 Lymph % (Auto) 9.1 % (20-40) L 02/21/20 05:47 [place] % (Auto) 11.7 % (2-11) H 02/21/20 05:47 Eos % (Auto) 0.8 % (0-4) 02/21/20 05:47 Baso % (Auto) 0.3 % (0-2) 02/21/20 05:47 Lymph # (Auto) 1.1 X10*3/uL (1.2-4.9) L 02/21/20 05:47 [place] # (Auto) 1.4 X10*3/uL (0.1-1.2) H 02/21/20 05:47 Eos # (Auto) 0.1 X10*3/uL (0.0-0.4) 02/21/20 05:47 Baso # (Auto) 0.0 X10*3/uL (0.0-0.2) 02/21/20 05:47 Abs Immat Gran (auto) 0.10 X10*3/uL (0.00-0.03) H 02/21/20 05:47 Absolute Neuts (auto) 9.1 X10*3/uL (2.0-8.3) H 02/21/20 05:47 Absolute Nucleated RBC 0.000 X10*3/uL (0.0-0.012) 02/21/20 05:47 Nucleated RBC % (auto) 0.0 /100WBC (0.0-0.2) 02/21/20 05:47 Smear Tech's Comments VERIFIED 02/21/20 05:47 Smear Path Review SEE NOTE 02/16/20 19:38 PT 20.7 SEC (10.8-13.0) H 02/21/20 05:47 INR 1.7 (0.9-1.1) H 02/21/20 05:47 APTT 39.2 SEC (24.1-38.0) H 02/16/20 18:23 Sodium 123 mmol/L (135-145) L 02/21/20 05:47 Potassium 4.8 mmol/l (3.3-5.1) 02/21/20 05:47 Chloride 94 mmol/L (96-108) L 02/21/20 05:47 Carbon Dioxide 22 mmol/L (22-29) 02/21/20 05:47 Anion Gap 12 (12-20) 02/21/20 05:47 BUN 12 mg/dL (9-16) 02/21/20 05:47 Creatinine 0.88 mg/dL (0.5-1.4) 02/21/20 05:47 Estim Creat Clear Calc 92.1 02/21/20 05:47 Estimated GFR > 60 02/21/20 05:47 Random Glucose 125 mg/dL (60-115) H 02/19/20 08:14 Fasting Glucose 92 mg/dL (60-99) 02/21/20 05:47 Lactic Acid Cancelled 02/19/20 09:07 Calcium 7.2 mg/dL (8.4-10.2) L 02/21/20 05:47 Magnesium 1.9 mg/dL (1.6-2.6) 02/20/20 05:53 Magnesium 1.9 mg/dL (1.6-2.6) 02/20/20 05:53 Total Bilirubin 8.2 mg/dL (0.0-1.0) H 02/21/20 05:47 Direct Bilirubin 4.8 mg/dL (0.0-0.5) H 02/21/20 05:47 AST 102 U/L (5-37) H 02/21/20 05:47 ALT 19 U/L (0-40) 02/21/20 05:47 Alkaline Phosphatase 125 U/L (39-117) H 02/21/20 05:47 Ammonia 66 umol/L (13-55) H 02/18/20 06:05 Troponin I High Sens 3.8 ng/L (<3.5-35.0) 02/16/20 18:23 B-Natriuretic Peptide 85 pg/mL (<100) 02/16/20 18:23 Total Protein 6.4 g/dL (6.5-8.0) L 02/21/20 05:47 Albumin 1.8 g/dL (3.5-5.0) L 02/21/20 05:47 Lipase 93 U/L (8-78) H 02/16/20 18:23 Urine Color BROWN 02/17/20 00:28 Urine Appearance HAZY 02/17/20 00:28 Urine pH 6.5 (5.0-8.0) 02/17/20 00:28 Ur Specific [place] 1.015 (1.005-1.025) 02/17/20 00:28 Urine Protein 1+ MG/DL (NEG-TRACE) H 02/17/20 00:28 Urine Glucose (UA) 100 MG/DL (NEG) H 02/17/20 00:28 Urine Ketones 15 MG/DL (NEG) 02/17/20 00:28 Urine Blood 1+ (NEG) H 02/17/20 00:28 Urine Nitrite POS (NEG) H 02/17/20 00:28 Ur Leukocyte Esterase TRACE (NEG) H 02/17/20 00:28 Urine RBC 0-2 /HPF (0) 02/17/20 00:28 Urine WBC 0 /HPF (0-4) 02/17/20 00:28 Ur Squamous Epith Cells TRACE /LPF 02/17/20 00:28 Ur Renal Epithelial Cell TRACE /LPF 02/17/20 00:28 Other Crystals 2+ /LPF 02/17/20 00:28 Urine Bacteria NONE /LPF 02/17/20 00:28 Hyaline Casts 10-14 /LPF 02/17/20 00:28 Urine Mucus 1+ /LPF 02/17/20 00:28 Peritoneal WBC 0.099 X10*3/uL 02/17/20 02:35 Peritoneal RBC 0.002 X10*6/uL 02/17/20 02:35 Periton Neutrophils 48 % 02/17/20 02:35 Periton Lymphocytes 15 % 02/17/20 02:35 Peritoneal Monocytes 37 % 02/17/20 02:35 Peritoneal Tot Protein 0.8 02/17/20 02:35 Peritoneal LDH 38 02/17/20 02:35 Peritoneal Glucose 131 02/17/20 02:35 Stool Occult Blood POS (NEG) 02/17/20 07:57 Ethyl Alcohol 208 mg/dL 02/16/20 18:23 C. difficile Toxin A&B Positive (Negative) A 02/17/20 07:57 C. difficile Antigen Positive (Negative) A 02/17/20 07:57 C. difficile Interpret SEE NOTE 02/17/20 07:57 COVID-19 (MAHAD) Negative (Negative) 02/16/20 20:45 COVID-19 Clin Com See Note 02/16/20 20:45 Blood Type O Positive 02/16/20 21:16 Antibody Screen NEGATIVE 02/16/20 21:16 Crossmatch See Detail 02/16/20 21:16 Preliminary micro results at discharge 02/19/20 09:07 Blood Culture - Preliminary Blood - Venous 02/19/20 09:06 Blood Culture - Preliminary Blood - Venous No growth after 24 hours. 02/16/20 19:30 Blood Culture - Preliminary Blood - Venous No growth after 48 hours. 02/16/20 19:30 Blood Culture - Preliminary Blood - Venous No growth after 48 hours. Discharge Plan Discharge Patient Disposition: Home Health Service Referrals: [facility] [Outside] Jarvis Ovalle MD [Primary Care Provider] - Discharge Medications: New loperamide 2 mg Capsule 2 mg PO Q4H PRN (Reason: diarrhea) Qty: 20 RF: 0 vancomycin 125 mg Capsule 125 mg PO Q6H 6 Days Qty: 24 RF: 0 omeprazole 20 mg Capsule,Delayed Release(Dr/Ec) 20 mg PO DAILY@0630 Qty: 30 RF: 0 metronidazole 500 mg Tablet 500 mg PO Q8H Qty: 30 RF: 0 Continued spironolactone 50 mg tablet 50 mg PO DAILY RF: 0 cholecalciferol (vitamin D3) 1,250 mcg (50,000 unit) capsule 1,250 mcg PO QWEEK RF: 0 folic acid 1 mg tablet 1 mg PO DAILY Qty: 30 RF: 6 thiamine HCl (vitamin B1) 100 mg tablet 100 mg PO DAILY 30 Days Qty: 30 RF: 2 Discontinued furosemide 20 mg tablet 20 mg PO QAM RF: 0 Discharge Orders: Discharge Order (Routine); Ordered 02/25/20 Ordered By: Toan Oleary Diet: advance to usual diet Activity on Discharge: As tolerated Visit Report Forms: Patient Portal Discharge page Care Plan Goals: recovery Health Concerns: alcoholic cirrhosis and hepatitis, hyponatremia, cdif, anemia, fusiform bacteria bacteremia Plan of Treatment: 6 more days of vanco, 10 days of flagyl, pirlosec, stop lasix, fluid restrict, avoid alcohol, PT
--- NOTE | 2020-02-21 10:17 | MHC.CM.PN ---
Patient has been medically cleared for dc to home today with [facility]. CM spoke with Patient, who's preference it is for [facility]. [facility] has been notified of today's dc.Patient is aware of and in agreement with the dc plan.
--- NOTE | 2020-02-21 11:42 | MHC.CM.PN ---
DC for today has been canceled r/t positive blood cultures. CM will follow.Patient has not seen his PCP- Dr. Ignacio Ovalle in over 10 years and will not be eligible for [facility]. Patient us interested in ETOH treatment; CM will relay to Clair in Care Team.
--- NOTE | 2020-02-21 12:04 | MHC.CARE ---
1100 Call from patient's brother, Td Verma ([phone]), stated that the family is very concerned about patient's increased alcohol use despite the medical issues it is causing. Would like him sent to a program, explained that patient has already had a medically assisted detox so only outpatient services would be available, which are all voluntary. Family is aware of the [place] 35 option and are prepared to pursue if patient will not get treatment. CM reported that patient is open to hearing about outpatient and other resources, will send consult.
--- NOTE | 2020-02-21 12:07 | HO.PM.IMPN ---
Subjective Subjective Date of Service: 02/21/20 Interval History: Feeling better today, was looking to go home Gastrointestinal Gastrointestinal: Reports no additional gastrointestinal complaints Genitourinary Genitourinary: Reports no additional male genitourinary complaints Physical Exam Vital Signs: Vital Signs: Last Vital Signs Temp 97.8 F 02/21/20 11:11 Pulse 94 02/21/20 11:11 Resp 18 02/21/20 11:11 BP 103/65 02/21/20 11:11 Pulse Ox 99 02/21/20 11:11 Body Mass Index 23.6 General: AO X 3, no acute distress, juandiced Resp: CTA bilateral CVS: S1,S2,RRR GI: soft, non tender, distended Neuro: motor grossly intact Psych: appropriate affect Objective Data Current Medications Generic Name Dose Route Start Last Admin Trade Name Freq PRN Reason Stop Dose Admin Ceftriaxone Sodium 1 gm/ 50 mls @ 100 mls/hr 02/21/20 12:15 Sodium Chloride IV Q24H SHAUN Metronidazole 500 mg in 100 mls @ 100 mls/hr 02/21/20 12:15 Flagyl IV Q8H SHAUN Loperamide HCl 2 mg 02/19/20 10:27 Loperamide Hcl 2 Mg Capsule PO Q4H PRN diarrhea Medication 1 each 02/17/20 09:00 No Benzodiazepines MISCELLANE DAILY SHAUN Nicotine 21 mg 02/19/20 11:45 02/21/20 07:44 Nicotine 21 Mg Patch.Td24 TRANSDERMA 21 mg DAILY SHAUN Administration Omeprazole 20 mg 02/17/20 17:20 02/21/20 05:51 Omeprazole 20 Mg Capsule.Dr PO 20 mg DAILY@0630 SHAUN Administration Phenobarbital 15 mg 02/21/20 09:00 02/21/20 07:45 Phenobarbital 15 Mg Tablet PO 02/22/20 09:01 15 mg DAILY SHAUN Administration Sodium Chloride 3 ml 02/17/20 16:00 02/21/20 07:44 0.9 % Sodium Chloride Flush 3 Ml Syringe IVFLUSH 3 ml QSHIFT SHAUN Administration Vancomycin HCl 250 mg 02/17/20 12:00 02/21/20 12:04 Vancomycin Hcl 125 Mg Capsule PO 250 mg Q6H SHAUN Administration Labs CBC & Chem 7: 02/21/20 05:47 02/21/20 05:47 Microbiology Microbiology Results: Microbiology 02/19/20 09:07 Blood - Venous Blood Culture - Preliminary 02/19/20 09:06 Blood - Venous Blood Culture - Preliminary No growth after 48 hours. 02/17/20 02:35 Abdominal Fluid Gram Stain - Final 02/17/20 02:35 Abdominal Fluid Routine Culture - Final No growth after 2 days 02/16/20 19:30 Blood - Venous Blood Culture - Preliminary No growth after 48 hours. 02/16/20 19:30 Blood - Venous Blood Culture - Preliminary No growth after 48 hours. 02/17/20 00:00 Urine clean catch - Clean Catch Midstream Urine Culture - Final Assessment and Plan (1) Bacteremia: Status: Acute (2) Hepatic encephalopathy: Status: Acute (3) GIB (gastrointestinal bleeding): Status: Acute (4) Alcohol withdrawal: Status: Acute (5) Abdominal ascites: Status: Acute (6) Anemia: Status: Acute (7) Ascites controlled with medication: Status: Acute (8) History of Clostridioides difficile colitis: Status: Acute Assessment and Plan: 59 male with alcoholism, cirrhosis of liver, treated in october for C diff here with diarrhea, abd pain,and electrolyties abnormalities and severe anemia and c diff positive. Acute blood loss anemia - -likely GIB upper more likely than lower continue PPI -Transfused 4 units hgb up to 9 from 5 and stable monitor -avoid anticoagulants, NSAID gram negative bactermia will cancel discharge likely gi translocation ceftriaxone, flagyl follow up cultures hyponatremia fluid restrict hyperkalemia resolved Hepatic encephalopathy rsolved alcoholic liver cirhosis with acute hepatitis and Ascites - s/p paracentesis no SBP cdif colitisi po vanco day 5, imodium now that he has received several days of abx (once k normal)
[2020-02-21] MEDS: cefTRIAXone sodium 1 GM in 0.9 % Sodium Chloride 50 ML IV (12:56)
[2020-02-21] MEDS: metroNIDAZOLE/NS 500 MG/100 ML PIGGYBACK 100 MG IV ×2 (14:07→22:38)
[2020-02-22 04:00] VITALS: BP 106/60; PULSE 96; RESP 18; TEMP 36.7; O2SAT 97
[2020-02-22] MEDS: Omeprazole 20 MG CAPSULE.DR PO (05:29)
[2020-02-22] MEDS: metroNIDAZOLE/NS 500 MG/100 ML PIGGYBACK 100 MG IV ×3 (05:29→22:11)
[2020-02-22] MEDS: vancomycin HCL 125 MG CAPSULE 250 MG PO ×4 (05:29→23:46)
[2020-02-22 07:40] LABS: Basophils Percent Auto 0.3 % (0-2); Eosinophils Absolute Auto 0.1 X10*3/uL (0.0-0.4); Eosinophils Percent Auto 0.4 % (0-4); Hematocrit 25.6 % (42-52); Hemoglobin 8.5 g/dl (14.0-18.0); Imm Gran Abs Auto 0.11 X10*3/uL (0.00-0.03); Imm Gran Pct Auto 0.9 % (0.0-0.4); Lymphocytes Absolute Auto 1.1 X10*3/uL (1.2-4.9); Lymphocytes Percent Auto 9.3 % (20-40); Mean Corpuscular HGB Conc 33.2 g/dl (31.0-36.0); Mean Corpuscular Hemoglobin 32.6 pg (27.0-33.0); Mean Corpuscular Volume 98.1 fL (80-98); Monocytes Absolute Auto 1.6 X10*3/uL (0.1-1.2); Monocytes Percent Auto 13.5 % (2-11); Neutrophils Absolute Auto 8.8 X10*3/uL (2.0-8.3); Neutrophils Percent Auto 75.6 % (45-73); PLT CLUMP 1; Red Blood Count 2.61 X10*6/uL (4.60-5.80); Red Cell Distribution Width 20.8 % (11.0-16.0); SCAN SMEAR FLAG 1
[2020-02-22 07:41] LABS: MANUAL DIFF FLAG SCAN
[2020-02-22 07:58] VITALS: BP 103/61; PULSE 88; RESP 20; TEMP 36.8; O2SAT 99
[2020-02-22 07:59] LABS: Anion Gap 12 (12-20); Blood Urea Nitrogen 13 mg/dL (9-16); Calcium 7.4 mg/dL (8.4-10.2); Carbon Dioxide 24 mmol/L (22-29); Chloride 96 mmol/L (96-108); Creatinine Clr Calc Pharmacy 75.1; Estimated Glomerular Filt Rate > 60; Glucose Fasting 98 mg/dL (60-99); Potassium 4.8 mmol/l (3.3-5.1); Sodium 127 mmol/L (135-145)
[2020-02-22 08:11] LABS: Platelet Count 109 X10*3/uL (160-400); SLIDE REVIEW VERIFIED; White Blood Count 11.7 X10*3/uL (4.8-10.8)
[2020-02-22] MEDS: 0.9 % Sodium Chloride Flush 3 ML SYRINGE IVFLUSH ×3 (09:00→23:47)
[2020-02-22] MEDS: PHENobarbitaL 15 MG TABLET PO (09:00)
[2020-02-22] MEDS: Nicotine 21 MG PATCH.TD24 TRANSDERMA (09:00)
[2020-02-22] MEDS: Loperamide HCl 2 MG CAPSULE PO (09:25)
--- NOTE | 2020-02-22 10:39 | HO.PM.IMPN ---
Subjective Subjective Date of Service: 02/22/20 Interval History: some diarrhea, but feeling well Cardiovascular Cardiovascular: Reports no additional cardiovascular complaints Respiratory Respiratory: Reports no additional respiratory complaints Physical Exam Vital Signs: Vital Signs: Last Vital Signs Temp 98.3 F 02/22/20 07:58 Pulse 88 02/22/20 07:58 Resp 20 02/22/20 07:58 BP 103/61 02/22/20 07:58 Pulse Ox 99 02/22/20 07:58 Body Mass Index 23.6 General: AO X 3, no acute distress, juandiced Resp: diminished CVS: S1,S2,RRR GI: soft, non tender, distended Neuro: motor grossly intact Psych: appropriate affect Objective Data Current Medications Generic Name Dose Route Start Last Admin Trade Name Freq PRN Reason Stop Dose Admin Ceftriaxone Sodium 1 gm/ 50 mls @ 100 mls/hr 02/21/20 12:00 02/21/20 13:38 Sodium Chloride IV Infused Q24H SHAUN Infusion Metronidazole 500 mg in 100 mls @ 100 mls/hr 02/21/20 14:00 02/22/20 08:10 Flagyl IV Infused Q8H SHAUN Infusion Loperamide HCl 2 mg 02/19/20 10:27 02/22/20 09:25 Loperamide Hcl 2 Mg Capsule PO 2 mg Q4H PRN Administration diarrhea Medication 1 each 02/17/20 09:00 No Benzodiazepines MISCELLANE DAILY SHAUN Nicotine 21 mg 02/19/20 11:45 02/22/20 09:00 Nicotine 21 Mg Patch.Td24 TRANSDERMA 21 mg DAILY SHAUN Administration Omeprazole 20 mg 02/17/20 17:20 02/22/20 05:29 Omeprazole 20 Mg Capsule.Dr PO 20 mg DAILY@0630 SHAUN Administration Sodium Chloride 3 ml 02/17/20 16:00 02/22/20 09:00 0.9 % Sodium Chloride Flush 3 Ml Syringe IVFLUSH 3 ml QSHIFT SHAUN Administration Vancomycin HCl 250 mg 02/17/20 12:00 02/22/20 05:29 Vancomycin Hcl 125 Mg Capsule PO 250 mg Q6H SHAUN Administration Labs CBC & Chem 7: 02/22/20 07:00 02/22/20 07:00 Microbiology Microbiology Results: Microbiology 02/19/20 09:07 Blood - Venous Blood Culture - Preliminary 02/16/20 19:30 Blood - Venous Blood Culture - Final No growth after 5 days. 02/16/20 19:30 Blood - Venous Blood Culture - Final No growth after 5 days. 02/19/20 09:06 Blood - Venous Blood Culture - Preliminary No growth after 48 hours. 02/17/20 02:35 Abdominal Fluid Gram Stain - Final 02/17/20 02:35 Abdominal Fluid Routine Culture - Final No growth after 2 days 02/17/20 00:00 Urine clean catch - Clean Catch Midstream Urine Culture - Final Assessment and Plan (1) Bacteremia: Status: Acute (2) Hepatic encephalopathy: Status: Acute (3) GIB (gastrointestinal bleeding): Status: Acute (4) Alcohol withdrawal: Status: Acute (5) Abdominal ascites: Status: Acute (6) Anemia: Status: Acute (7) Ascites controlled with medication: Status: Acute (8) History of Clostridioides difficile colitis: Status: Acute Assessment and Plan: 59 male with alcoholism, cirrhosis of liver, treated in october for C diff here with diarrhea, abd pain,and electrolyties abnormalities and severe anemia and c diff positive. and now with gram negative bacteremia Acute blood loss anemia - -likely GIB upper more likely than lower continue PPI -Transfused 4 units hgb up to 9 from 5 and stable -avoid anticoagulants, NSAID gram negative bactermia likely gi translocation ceftriaxone, flagyl follow up cultures ID eval hyponatremia fluid restrict hyperkalemia resolved Hepatic encephalopathy rsolved alcoholic liver cirhosis with acute hepatitis and Ascites - s/p paracentesis no SBP cdif colitisi po vanco day 6, imodium now that he has received several days of abx (once k normal)
--- NOTE | 2020-02-22 11:04 | MHC.RECOVSUP ---
Recovery Support note: Patient is a 59 year old Kyrgyz speaking male who presented to [facility] due to abdominal pain, weakness and fatigue and was medically admitted. Patient is known to this journalists and other writers from previous consultations. Patient reports that he hit rock bottom. Patient acknowledges that his alcohol use has a severe negative impact on his health, patient reports continuing to drink is suicide. Patient reports a desire to maintain sobriety and is hopeful that he will be able to with the supports he has in place. Patient reports his brother has 30 years of sobriety and that he attends AA meetings with his brother 3 days a week. Patient reports he plans to live with his parents after discharge and he believes he will be able to maintain sobriety in that setting. Patient reports his longest period of sobriety was 4 years and states that he had a daughter at the time and had a lot on his plate raising a child. Patient reports he attended therapy at the time due to pressure from his , however he found it helpful. Patient is open to a therapy referral which this journalists and other writers will place when patient is closer to discharge. Discussed IOP and medications for alcohol use disorder with patient. Patient accepted information on both resources. Discussed [facility] [place] with patient and introduced patient to Science Consultant, Bryan. Patient did not express interest in discharging to a substance use program after discharge, however he was willing to consider it. Patient would not be eligible for detox however he could potentially get into a CSS if he was interested. This journalists and other writers will meet with patient as he gets closer to discharge to discuss this option further. Discussed case with patient's RN, Elodia.
--- NOTE | 2020-02-22 11:18 | MHC.RECOVSUP ---
? Reason for consult: o Current location: [facility]- o Identified substance use concern:ETOH - Support :gave him a [facility] presentation. ? Intervention:Community Resources provided ? Plan: Referral to CCC o Follow up on Wednesday o Patient to follow up with HF after discharge ? Additional information:Spoke with patient re:detox facilities and a CSS. Patient stated wants to work on his problem from home as an outpatient . Discussed in detail everything a [facility] is and what [facility] has to offer.
[2020-02-22 12:00] VITALS: BP 106/66; PULSE 91; RESP 20; TEMP 36.5; O2SAT 99
[2020-02-22] MEDS: cefTRIAXone sodium 1 GM in 0.9 % Sodium Chloride 50 ML IV (12:47)
--- NOTE | 2020-02-22 13:55 | P.CNID_ITS ---
History of Present Illness Data of Consult Service Date: 02/22/20 Requesting physician: Toan Oleary Primary Care Provider: Jarvis Ovalle MD HPI Reason for consult: bacteremia,Cdiff He presents to hospital with worsening lethargy,confusion,no specific abdominal pain at this time He has cirrhosis with abdominal distention He has had colovesical fistula and sigmoid resection repair 11/2016 He has Cdiff antigen positive and multiple loose stools Review of Systems Review of Systems: Yes Unobtainable due to mental condition Neurologic: Reports confusion Psychiatric: Psychiatric: Reports confusion PMF Past Medical History Medical History Alcohol abuse Alcoholism Anemia Cirrhosis, alcoholic GIB (gastrointestinal bleeding) History of abdominal paracentesis History of Clostridioides difficile colitis (~10/2019) History of open sigmoidectomy Kidney stone Low vitamin D level Ulcerative colitis Family History Family History Father Hx of thyroid cancer Mother Hx of thyroid disease Daughter No problems noted. Son Autism Surgical History Surgical History H/O colectomy History of esophagogastroduodenoscopy (EGD) Hx of colonoscopy Social History Social History Household Members: None Housing: House Do you presently have visiting nurse or other home services: No Alcohol intake: former Smoking Status: Current every day smoker Tobacco Type: Cigarette Packs Per Day: 1 Cigarettes Per Day: 20.0 Smoked in Last 30 Days: Yes Patient Interested in Nicotine Replacement: Yes Patient Given Instructions on How to Stop Smoking: Yes Date Education Initiated: 02/17/20 Second Hand Smoke Exposure: Yes Use of substances other than those prescribed or required for medical reasons: No Currently Displaying Signs/Symptoms of Drug Intoxication Withdrawal: No Have you been hit, kicked, punched, or otherwise hurt by someone within the past year? If so, by whom?: No Is there a partner from a previous relationship who is making you feel unsafe now?: No Are you made to feel afraid or neglected: No Advance Directives: No Advance Directives Information Provided: Yes Do you have thoughts of harming others: None Do you have a plan to hurt others: No Plan Recently lost weight without trying: Yes service: No Current occupational status: retired Current occupation: [employer] Meds Allergies Allergy/AdvReac Type Severity Reaction Status Date / Time No Known Allergies Allergy Unverified 11/16/19 14:42 [No Known Allergies*] Home Medications Medication Instructions Recorded Confirmed Type cholecalciferol (vitamin D3) 1,250 1,250 mcg PO QWEEK 12/28/19 02/16/20 History mcg (50,000 unit) capsule spironolactone 50 mg tablet 50 mg PO DAILY 12/28/19 02/16/20 History Physical Exam Vital Signs: Vital Signs: Last Vital Signs Temp 97.7 F 02/22/20 12:00 Pulse 91 02/22/20 12:00 Resp 20 02/22/20 12:00 BP 106/66 02/22/20 12:00 Pulse Ox 99 02/22/20 12:00 Body Mass Index 23.6 Const: General: confusion Orientation/consciousness: confusion HENMT: Head: Yes normal to inspection Eyes: Other: scleral icterus General: appearance normal, both eyes and all related structures Resp: Effort & Inspection: normal respiratory effort Cardio: Rate: regular rate Rhythm: regular rhythm GI: Other: distended abdomen, no pain : General: Yes no CVA tenderness Back/Spine/Pelvis: Back: no CVA tenderness Skin: Other: sallow Neuro: General: confusion Extrem: Other: plus 2 edema Assessment and Plan (1) Bacteremia: Problem details: Even with unremarkable fluid patient still at risk with cirrhosis for encephalopathy and SBP Gram negative organisms include E coli and strep pneumonia and others Status: Acute Agree Ceftriaxone ,await final cultures and continue IV for now (2) C. difficile colitis: Problem details: Moderate severity,no shock Status: Acute Agree with IV Flagyl especially since not taking po well due to encephalopathy and po Vancomycin,Vancomycin 10 days with subsequent taper, qid for 10 d,tid for 1 week,bid 1 week, every other day for a week and then M,W, F for month or more Results Labs CBC & Chem 7: 02/22/20 07:00 02/22/20 07:00 Labs: Short CBC 02/22/20 Range/Units 07:00 WBC 11.7 H (4.8-10.8) X10*3/uL Hgb 8.5 L (14.0-18.0) g/dl Hct 25.6 L (42-52) % Plt Count 109 L (160-400) X10*3/uL BMP 02/22/20 07:00 Sodium 127 L Potassium 4.8 Chloride 96 Carbon Dioxide 24 BUN 13 Creatinine 1.08 Calcium 7.4 L Microbiology Microbiology Results: Microbiology 02/19/20 09:07 Blood - Venous Blood Culture - Preliminary 02/16/20 19:30 Blood - Venous Blood Culture - Final No growth after 5 days. 02/16/20 19:30 Blood - Venous Blood Culture - Final No growth after 5 days. 02/19/20 09:06 Blood - Venous Blood Culture - Preliminary No growth after 48 hours. 02/17/20 02:35 Abdominal Fluid Gram Stain - Final 02/17/20 02:35 Abdominal Fluid Routine Culture - Final No growth after 2 days 02/17/20 00:00 Urine clean catch - Clean Catch Midstream Urine Culture - Final
[2020-02-22 15:03] VITALS: BP 114/68; PULSE 94; RESP 18; TEMP 37.1; O2SAT 99
[2020-02-22 19:11] VITALS: BP 106/55; PULSE 94; RESP 18; TEMP 37.6; O2SAT 96
[2020-02-22 23:53] VITALS: BP 104/61; PULSE 90; RESP 18; TEMP 37.6; O2SAT 96
[2020-02-23 03:37] VITALS: BP 106/65; PULSE 96; RESP 18; TEMP 37.7; O2SAT 95
[2020-02-23] MEDS: metroNIDAZOLE/NS 500 MG/100 ML PIGGYBACK 100 MG IV ×3 (05:55→22:20)
[2020-02-23] MEDS: Omeprazole 20 MG CAPSULE.DR PO (05:55)
[2020-02-23] MEDS: vancomycin HCL 125 MG CAPSULE 250 MG PO ×4 (05:55→23:39)
[2020-02-23 08:00] VITALS: BP 98/61; PULSE 87; RESP 20; TEMP 36.7; O2SAT 98
[2020-02-23] MEDS: Nicotine 21 MG PATCH.TD24 TRANSDERMA (08:06)
[2020-02-23] MEDS: 0.9 % Sodium Chloride Flush 3 ML SYRINGE IVFLUSH ×3 (08:07→23:39)
--- NOTE | 2020-02-23 09:25 | HO.PM.IMPN ---
Subjective Subjective Date of Service: 02/23/20 Interval History: still with diarrhea Cardiovascular Cardiovascular: Reports no additional cardiovascular complaints Respiratory Respiratory: Reports no additional respiratory complaints Physical Exam Vital Signs: Vital Signs: Last Vital Signs Temp 98.0 F 02/23/20 08:00 Pulse 87 02/23/20 08:00 Resp 20 02/23/20 08:00 BP 98/61 02/23/20 08:00 Pulse Ox 98 02/23/20 08:00 Body Mass Index 23.6 General: AO X 3, no acute distress, juandiced Resp: diminished CVS: S1,S2,RRR GI: soft, non tender, distended Neuro: motor grossly intact Psych: appropriate affect Objective Data Current Medications Generic Name Dose Route Start Last Admin Trade Name Freq PRN Reason Stop Dose Admin Ceftriaxone Sodium 1 gm/ 50 mls @ 100 mls/hr 02/21/20 12:00 02/22/20 13:33 Sodium Chloride IV Infused Q24H SHAUN Infusion Metronidazole 500 mg in 100 mls @ 100 mls/hr 02/21/20 14:00 02/23/20 08:01 Flagyl IV Infused Q8H SHAUN Infusion Loperamide HCl 2 mg 02/19/20 10:27 02/22/20 09:25 Loperamide Hcl 2 Mg Capsule PO 2 mg Q4H PRN Administration diarrhea Medication 1 each 02/17/20 09:00 No Benzodiazepines MISCELLANE DAILY SHAUN Nicotine 21 mg 02/19/20 11:45 02/23/20 08:06 Nicotine 21 Mg Patch.Td24 TRANSDERMA 21 mg DAILY SHAUN Administration Omeprazole 20 mg 02/17/20 17:20 02/23/20 05:55 Omeprazole 20 Mg Capsule.Dr PO 20 mg DAILY@0630 SHAUN Administration Sodium Chloride 3 ml 02/17/20 16:00 02/23/20 08:07 0.9 % Sodium Chloride Flush 3 Ml Syringe IVFLUSH 3 ml QSHIFT SHAUN Administration Vancomycin HCl 250 mg 02/17/20 12:00 02/23/20 05:55 Vancomycin Hcl 125 Mg Capsule PO 250 mg Q6H SHAUN Administration Labs CBC & Chem 7: 02/22/20 07:00 02/22/20 07:00 Microbiology Microbiology Results: Microbiology 02/19/20 09:07 Blood - Venous Blood Culture - Preliminary 02/16/20 19:30 Blood - Venous Blood Culture - Final No growth after 5 days. 02/16/20 19:30 Blood - Venous Blood Culture - Final No growth after 5 days. 02/19/20 09:06 Blood - Venous Blood Culture - Preliminary No growth after 48 hours. 02/17/20 02:35 Abdominal Fluid Gram Stain - Final 02/17/20 02:35 Abdominal Fluid Routine Culture - Final No growth after 2 days 02/17/20 00:00 Urine clean catch - Clean Catch Midstream Urine Culture - Final Assessment and Plan (1) Bacteremia: Problem details: Even with unremarkable fluid patient still at risk with cirrhosis for encephalopathy and SBP Gram negative organisms include E coli and strep pneumonia and others Status: Acute (2) Hepatic encephalopathy: Status: Acute (3) GIB (gastrointestinal bleeding): Status: Acute (4) Alcohol withdrawal: Status: Acute (5) Abdominal ascites: Status: Acute (6) Anemia: Status: Acute (7) Ascites controlled with medication: Status: Acute (8) History of Clostridioides difficile colitis: Status: Acute Assessment and Plan: 59 male with alcoholism, cirrhosis of liver, treated in october for C diff here with diarrhea, abd pain,and electrolyties abnormalities and severe anemia and c diff positive. and now with gram negative bacteremia Acute blood loss anemia - -likely GIB upper more likely than lower continue PPI -Transfused 4 units hgb up to 9 from 5 and stable -avoid anticoagulants, NSAID gram negative bactermia, suspect anaerobe given slow growth likely gi translocation ceftriaxone, flagyl follow up cultures ID appreciated hyponatremia fluid restrict hyperkalemia resolved Hepatic encephalopathy resolved alcoholic liver cirhosis with acute hepatitis and Ascites - s/p paracentesis no SBP cdif colitisi po vanco day 7, imodium now that he has received several days of abx
[2020-02-23] MEDS: cefTRIAXone sodium 1 GM in 0.9 % Sodium Chloride 50 ML IV (11:53)
[2020-02-23] MEDS: Loperamide HCl 2 MG CAPSULE PO (13:33)
--- NOTE | 2020-02-23 14:41 | MHC.CM.PN ---
DP HOME NO SERVICES. PT IS NOT ELIGABLE FOR HOME SERVICES DUE TO LAST PCP APPT 10 YEARS AGO. PLAN IS DC WITH [facility] BY [facility].
[2020-02-23 15:24] VITALS: BP 90/53; PULSE 98; RESP 20; TEMP 36.2; O2SAT 98
[2020-02-23 19:02] VITALS: BP 99/54; PULSE 68; RESP 18; TEMP 36.3; O2SAT 98
[2020-02-24] VITALS (7 sets, daily range): BP systolic 96–118; BP diastolic 54–67; PULSE 86–98; RESP 16–20; TEMP 36.2–37.6; O2SAT 95–100
[2020-02-24] MEDS: Omeprazole 20 MG CAPSULE.DR PO (06:31)
[2020-02-24] MEDS: vancomycin HCL 125 MG CAPSULE 250 MG PO ×5 (06:31→23:38)
[2020-02-24] MEDS: metroNIDAZOLE/NS 500 MG/100 ML PIGGYBACK 100 MG IV (06:32)
[2020-02-24 06:59] LABS: Eosinophils Absolute Auto 0.1 X10*3/uL (0.0-0.4); Eosinophils Percent Auto 0.9 % (0-4); Hemoglobin 8.1 g/dl (14.0-18.0); Lymphocytes Percent Auto 10.6 % (20-40); MANUAL DIFF FLAG SCAN; PLT CLUMP 1; SCAN SMEAR FLAG 1
[2020-02-24 07:01] LABS: Basophils Percent Auto 0.4 % (0-2); Hematocrit 24.1 % (42-52); Imm Gran Abs Auto 0.19 X10*3/uL (0.00-0.03); Imm Gran Pct Auto 1.7 % (0.0-0.4); Lymphocytes Absolute Auto 1.2 X10*3/uL (1.2-4.9); Mean Corpuscular HGB Conc 33.6 g/dl (31.0-36.0); Mean Corpuscular Hemoglobin 33.1 pg (27.0-33.0); Mean Corpuscular Volume 98.4 fL (80-98); Monocytes Absolute Auto 1.7 X10*3/uL (0.1-1.2); Monocytes Percent Auto 15.3 % (2-11); Neutrophils Absolute Auto 7.8 X10*3/uL (2.0-8.3); Neutrophils Percent Auto 71.1 % (45-73); Red Blood Count 2.45 X10*6/uL (4.60-5.80); Red Cell Distribution Width 20.6 % (11.0-16.0)
[2020-02-24 07:26] LABS: Anion Gap 14 (12-20); Blood Urea Nitrogen 11 mg/dL (9-16); Calcium 7.2 mg/dL (8.4-10.2); Carbon Dioxide 21 mmol/L (22-29); Chloride 98 mmol/L (96-108); Creatinine Clr Calc Pharmacy 81.9; Estimated Glomerular Filt Rate > 60; Glucose Fasting 81 mg/dL (60-99); Potassium 4.7 mmol/l (3.3-5.1); Sodium 128 mmol/L (135-145)
[2020-02-24 07:38] LABS: Platelet Count 130 X10*3/uL (160-400)
[2020-02-24 07:39] LABS: SLIDE REVIEW VERIFIED
[2020-02-24] MEDS: Nicotine 21 MG PATCH.TD24 TRANSDERMA (07:43)
[2020-02-24] MEDS: 0.9 % Sodium Chloride Flush 3 ML SYRINGE IVFLUSH ×3 (07:44→23:38)
--- NOTE | 2020-02-24 10:05 | HO.PM.IMPN ---
Subjective Subjective Date of Service: 02/24/20 Interval History: diarrhea improved, but has recurred this morning Cardiovascular Cardiovascular: Reports no additional cardiovascular complaints Respiratory Respiratory: Reports no additional respiratory complaints Physical Exam Vital Signs: Vital Signs: Last Vital Signs Temp 97.8 F 02/24/20 08:00 Pulse 88 02/24/20 08:00 Resp 18 02/24/20 08:00 BP 102/63 02/24/20 08:00 Pulse Ox 97 02/24/20 08:00 Body Mass Index 23.6 General: AO X 3, no acute distress, juandiced Resp: CTA bilateral CVS: S1,S2,RRR GI: soft, non tender, distended Neuro: motor grossly intact Psych: appropriate affect Objective Data Current Medications Generic Name Dose Route Start Last Admin Trade Name Freq PRN Reason Stop Dose Admin Loperamide HCl 2 mg 02/19/20 10:27 02/23/20 13:33 Loperamide Hcl 2 Mg Capsule PO 2 mg Q4H PRN Administration diarrhea Medication 1 each 02/17/20 09:00 No Benzodiazepines MISCELLANE DAILY SHAUN Nicotine 21 mg 02/19/20 11:45 02/24/20 07:43 Nicotine 21 Mg Patch.Td24 TRANSDERMA 21 mg DAILY SHAUN Administration Omeprazole 20 mg 02/17/20 17:20 02/24/20 06:31 Omeprazole 20 Mg Capsule.Dr PO 20 mg DAILY@0630 SHAUN Administration Sodium Chloride 3 ml 02/17/20 16:00 02/24/20 07:44 0.9 % Sodium Chloride Flush 3 Ml Syringe IVFLUSH 3 ml QSHIFT SHAUN Administration Vancomycin HCl 250 mg 02/17/20 12:00 02/24/20 06:31 Vancomycin Hcl 125 Mg Capsule PO 250 mg Q6H SHAUN Administration Labs CBC & Chem 7: 02/24/20 05:30 02/24/20 05:30 Microbiology Microbiology Results: Microbiology 02/19/20 09:07 Blood - Venous Blood Culture - Preliminary Fusobacterium species 02/16/20 19:30 Blood - Venous Blood Culture - Final No growth after 5 days. 02/16/20 19:30 Blood - Venous Blood Culture - Final No growth after 5 days. 02/19/20 09:06 Blood - Venous Blood Culture - Preliminary No growth after 48 hours. 02/17/20 02:35 Abdominal Fluid Gram Stain - Final 02/17/20 02:35 Abdominal Fluid Routine Culture - Final No growth after 2 days 02/17/20 00:00 Urine clean catch - Clean Catch Midstream Urine Culture - Final Assessment and Plan (1) Bacteremia: Status: Acute (2) Hepatic encephalopathy: Status: Acute (3) GIB (gastrointestinal bleeding): Status: Acute (4) Alcohol withdrawal: Status: Acute (5) Abdominal ascites: Status: Acute (6) Anemia: Status: Acute (7) Ascites controlled with medication: Status: Acute (8) History of Clostridioides difficile colitis: Status: Acute Assessment and Plan: 59 male with alcoholism, cirrhosis of liver, treated in october for C diff here with diarrhea, abd pain,and electrolyties abnormalities and severe anemia and c diff positive. and now with gram negative bacteremia Acute blood loss anemia - -likely GIB upper more likely than lower continue PPI -Transfused 4 units hgb up to 9 from 5 and stable -avoid anticoagulants, NSAID gram negative bactermia, fusiform bateria likely gi translocation ID appreciated will change to po flagyl hyponatremia fluid restrict hyperkalemia resolved Hepatic encephalopathy resolved alcoholic liver cirhosis with acute hepatitis and Ascites - s/p paracentesis no SBP cdif colitisi po vanco day 8, imodium now that he has received several days of abx
[2020-02-24] MEDS: Loperamide HCl 2 MG CAPSULE PO (11:54)
[2020-02-24] MEDS: metroNIDAZOLE 500 MG TABLET PO ×2 (13:08→21:29)
[2020-02-25 04:00] VITALS: BP 110/65; PULSE 106; RESP 18; TEMP 36.8; O2SAT 97
[2020-02-25] MEDS: metroNIDAZOLE 500 MG TABLET PO (05:40)
[2020-02-25] MEDS: vancomycin HCL 125 MG CAPSULE 250 MG PO ×2 (05:40→12:39)
[2020-02-25] MEDS: Omeprazole 20 MG CAPSULE.DR PO (05:40)
[2020-02-25 08:00] VITALS: BP 100/62; PULSE 88; RESP 18; TEMP 36.3; O2SAT 97
[2020-02-25] MEDS: 0.9 % Sodium Chloride Flush 3 ML SYRINGE IVFLUSH (09:44)
[2020-02-25] MEDS: Nicotine 21 MG PATCH.TD24 TRANSDERMA (09:44)
[2020-02-25] MEDS: Loperamide HCl 2 MG CAPSULE PO (09:45)
--- NOTE | 2020-02-25 11:19 | MHC.CM.PN ---
Pt discharging home today. Pt ineligible for VNA as he has not seen his PCP is several years. Importance of making a PCP appt discussed with pt during admission.
== END 2020-02-25 14:08 | disposition home health service (06) | DRG 280 ==
LOC: HO.ED 02-17 03:35 → HO.IMC 02-17 09:15
PROVIDERS: Emergency Medicine; Internal Medicine; Nurse Practitioner Family; Admitting Provider Internal Medicine; Emergency Provider Internal Medicine; PCP Internal Medicine; Visit Provider Internal Medicine
DX: K70.40 Alcoholic hepatic failure without coma (principal); K70.31 Alcoholic cirrhosis of liver with ascites; A04.71 Enterocolitis due to Clostridium difficile, recurrent; K70.11 Alcoholic hepatitis with ascites; D62 Acute posthemorrhagic anemia; K92.2 Gastrointestinal hemorrhage, unspecified; F10.239 Alcohol dependence with withdrawal, unspecified; K21.9 Gastro-esophageal reflux disease without esophagitis; E87.6 Hypokalemia; F17.210 Nicotine dependence, cigarettes, uncomplicated; E83.42 Hypomagnesemia; Z20.828 Contact with and (suspected) exposure to other viral communicable diseases; Z79.899 Other long term (current) drug therapy
CPT/HCPCS: 36415; 36430; 74176; 80048; 80076; 80320; 81001; 82140; 82272; 82945; 83605; 83615; 83690; 83735; 83880; 84157; 84484; 85014; 85018; 85025; 85060; 85610; 85730; 86850; 86900; 86901; 86920; 86923; 87040; 87071; 87076; 87086; 87185; 87205; 87324; 87449; 87635; 89051; 93005; 96365; 96367; 96372; 97116; 97162; 99282; 99285; 99291; J0696; J2560; J3411; J3430; J3475; P9016; P9047

== ENCOUNTER 2020-03-09 05:48 | Inpatient (IN) | payer OTHER, SELFPAY ==
[2020-03-09] VITALS (8 sets, daily range): BP systolic 91–112; BP diastolic 51–75; PULSE 68–112; RESP 16–18; TEMP 36.7–37.4; O2SAT 96–100; BMI 27.7; BMI 24.8
--- NOTE | 2020-03-09 06:51 | ED_ITS ---
HPI - Abdominal Pain General Chief Complaint: General Medical Stated Complaint: abd pain Time Seen by Provider: 03/09/20 06:50 Source: patient Mode of arrival: EMS Limitations: no limitations History of Present Illness HPI narrative: Patient alcoholic cirrhosis with anasarca , patient was admitted here on 02/16 same and had C diff colitis received 4 units of blood had Gram- negative bacteremia by fusobacterium received in 1 of 2 blood culture bottles received antibiotics discharged on 02/21 comes here for increasing ascites again with increased shortness of breath patient denies any use of alcohol lately. No fever no cough no significant abdominal pain no diarrhea at this time no vomiting no confusion Related Data Home Medications Medication Instructions Recorded Confirmed cholecalciferol (vitamin D3) 1,250 1,250 mcg PO QWEEK 12/28/19 03/09/20 mcg (50,000 unit) capsule spironolactone 50 mg tablet 50 mg PO DAILY 12/28/19 03/09/20 Previous Rx's Medication Instructions Recorded folic acid 1 mg tablet 1 mg PO DAILY #30 tab 12/28/19 thiamine HCl (vitamin B1) 100 mg 100 mg PO DAILY 30 Days #30 tab 12/28/19 tablet loperamide 2 mg PO Q4H PRN #20 cap 02/21/20 omeprazole 20 mg PO DAILY@0630 #30 cap 02/21/20 metronidazole 500 mg PO Q8H #30 tab 02/25/20 Allergies Allergy/AdvReac Type Severity Reaction Status Date / Time No Known Allergies Allergy Verified 03/09/20 06:53 [No Known Allergies*] Review of Systems Review of Systems Constitutional : No Weight loss, No Fever, No Chills ENT/Mouth : No sore throat, No Rhinorrhea Eyes: No Eye Pain, No Swelling Cardiovascular : No Chest Pain, no palpitations Respiratory : No Cough, No Sputum, ++ shortness of breath Gastrointestinal : no Nausea, No Vomiting, No Diarrhea, No abdominal Pain, no black stools Genitourinary : No Dysuria, No Urinary Frequency Musculoskeletal : No joint pain, No Myalgias, No Joint Swelling Skin : No Skin Lesions, No rash Neuro : No Weakness, No Numbness, No Dizziness, No Headache Psych : No Anxiety/Panic, No Depression Heme/Lymph: No Bruising, No Lymphadenopathy Endocrine : No Polyuria, No Polydipsia All other systems reviewed and are negative Physical Exam Vital Signs: Vital Signs: Last Vital Signs Temp 98.1 F 03/09/20 13:35 Pulse 97 03/09/20 13:35 Resp 17 03/09/20 13:35 BP 99/58 L 03/09/20 13:35 Pulse Ox 97 03/09/20 13:35 Body Mass Index 24.8 Const: General: alert, awake and ill appearing Nutritional Appearance: malnourished Orientation/consciousness: patient oriented x3 Limitations: no limitations HENMT: Head: Yes normocephalic and Yes atraumatic Ears: hearing grossly normal bilaterally General nose exam: Normal external nose present Face and sinus: Yes normal facial exam Mouth: Normal oral and palatal mucosa present Teeth and gingiva: dentition normal Throat: Yes posterior oropharynx normal Eyes: Conjunctivae: conjunctival abnormal (Pallor) Sclerae: scleral abnormal (Icterus) Neck: Neck: Yes normal visual inspection Chest: Chest palpation & inspection: normal palpation of entire chest wall Resp: Effort & Inspection: normal respiratory effort Auscultation: clear to auscultation bilaterally, no crackles and no rales Cardio: Jugular venous distension: no JVD Palpation: normal PMI Rate: regular rate Rhythm: regular rhythm Heart sounds: S1 normal heart sound present and S2 normal heart sound present GI: Inspection: Yes normal to inspection Palpation (GI): Tenderness to palpation present (GI) (Diffuse mild tenderness no guarding or rebound tenderness) with no rebound tenderness, Ascites present and No Rebound tenderness present Percussion: Yes Fluid wave present Back/Spine/Pelvis: Thoracic/Lumbar Spine: thoracic and lumbar spine normal to inspection Skin: Other: Pallor+ Rashes: no rashes Neuro: General: patient oriented x3, moves all extremities, no focal motor deficits and CN's II-XI intact bilaterally Extrem: General: Yes pedal edema (3+ pedal edema) Psych: Appearance: grossly normal Procedures Paracentesis Time Out Performed: Yes Indication: Ascites Procedure: therapeutic paracentesis Location: RLQ Local Anesthetic: lidocaine 1% Amount of anesthesia used (mL): 2 Preparation: sterile prep and drape Amount of fluid obtained (mL): 1,100 Fluid: cloudy Size of Needle Used: 7 Post Procedure Exam: awake, alert and normal BP Patient Tolerated Procedure: well Complications: none MDM - Abdominal Pain MDM Narrative Medical decision making narrative: Patient alcoholic cirrhosis with ascites, acetic tap was done and 11 L of slightly turbid yellowish fluid was drained which showed WBC count 430 meeting criteria for spontaneous peritonitis also his WBC count is 15,000 will start him on Rocephin plan for admission chest x- ray showed nonspecific patchy opacities and bibasilar atelectasis Differential Diagnosis Differential diagnosis: Likely abdominal pain Medical Records Attestation: I reviewed the patient's medical records. Lab Data Attestation: I reviewed the patient's lab results. Result diagrams: 03/09/20 07:20 03/09/20 08:21 Labs: Lab Results 03/09/20 03/09/20 03/09/20 Range/Units 07:19 07:20 07:20 WBC 15.0 H (4.8-10.8) X10*3/uL RBC 2.35 L (4.60-5.80) X10*6/uL Hgb 8.0 L (14.0-18.0) g/dl Hct 24.7 L (42-52) % MCV 105.1 H (80-98) fL MCH 34.0 H (27.0-33.0) pg MCHC 32.4 (31.0-36.0) g/dl RDW 20.2 H (11.0-16.0) % Plt Count 259 D (160-400) X10*3/uL MPV 10.1 (9.4-12.4) fL Immature Gran % (Auto) 0.4 (0.0-0.4) % Neut % (Auto) 87.1 H (45-73) % Lymph % (Auto) 6.5 L (20-40) % Morrill % (Auto) 5.8 (2-11) % Eos % (Auto) 0.1 (0-4) % Baso % (Auto) 0.1 (0-2) % Lymph # (Auto) 1.0 L (1.2-4.9) X10*3/uL Morrill # (Auto) 0.9 (0.1-1.2) X10*3/uL Eos # (Auto) 0.0 (0.0-0.4) X10*3/uL Baso # (Auto) 0.0 (0.0-0.2) X10*3/uL Abs Immat Gran (auto) 0.06 H (0.00-0.03) X10*3/uL Absolute Neuts (auto) 13.0 H (2.0-8.3) X10*3/uL Absolute Nucleated RBC 0.000 (0.0-0.012) X10*3/uL Nucleated RBC % (auto) 0.0 (0.0-0.2) /100WBC PT 24.6 H (10.8-13.0) SEC INR 2.1 H (0.9-1.1) APTT 41.2 H (24.1-38.0) SEC Sodium Potassium Chloride Carbon Dioxide Anion Gap BUN Creatinine Estim Creat Clear Calc Estimated GFR Random Glucose Lactic Acid (0.5-2.0) mmol/L Calcium Magnesium (1.6-2.6) mg/dL Total Bilirubin Direct Bilirubin AST ALT Alkaline Phosphatase Ammonia Cancelled Total Protein Albumin Lipase Peritoneal WBC X10*3/uL Peritoneal RBC X10*6/uL Periton Neutrophils % Periton Lymphocytes % Peritoneal Monocytes % COVID-19 (MAHAD) COVID-19 Clin Com 03/09/20 03/09/20 03/09/20 Range/Units 07:20 07:20 08:21 WBC (4.8-10.8) X10*3/uL RBC (4.60-5.80) X10*6/uL Hgb (14.0-18.0) g/dl Hct (42-52) % MCV (80-98) fL MCH (27.0-33.0) pg MCHC (31.0-36.0) g/dl RDW (11.0-16.0) % Plt Count (160-400) X10*3/uL MPV (9.4-12.4) fL Immature Gran % (Auto) (0.0-0.4) % Neut % (Auto) (45-73) % Lymph % (Auto) (20-40) % Morrill % (Auto) (2-11) % Eos % (Auto) (0-4) % Baso % (Auto) (0-2) % Lymph # (Auto) (1.2-4.9) X10*3/uL Morrill # (Auto) (0.1-1.2) X10*3/uL Eos # (Auto) (0.0-0.4) X10*3/uL Baso # (Auto) (0.0-0.2) X10*3/uL Abs Immat Gran (auto) (0.00-0.03) X10*3/uL Absolute Neuts (auto) (2.0-8.3) X10*3/uL Absolute Nucleated RBC (0.0-0.012) X10*3/uL Nucleated RBC % (auto) (0.0-0.2) /100WBC PT (10.8-13.0) SEC INR (0.9-1.1) APTT (24.1-38.0) SEC Sodium Cancelled 135 Potassium Cancelled 4.9 Chloride Cancelled 103 Carbon Dioxide Cancelled 23 Anion Gap Cancelled 14 BUN Cancelled 12 Creatinine Cancelled 1.11 Estim Creat Clear Calc Cancelled 78.9 Estimated GFR Cancelled > 60 Random Glucose Cancelled 110 Lactic Acid (0.5-2.0) mmol/L Calcium Cancelled 7.8 L D Magnesium 1.5 L (1.6-2.6) mg/dL Total Bilirubin Cancelled 6.3 H Direct Bilirubin Cancelled 2.8 H AST Cancelled 68 H ALT Cancelled 16 Alkaline Phosphatase Cancelled 90 D Ammonia Total Protein Cancelled 7.2 Albumin Cancelled 1.9 L Lipase Cancelled Peritoneal WBC X10*3/uL Peritoneal RBC X10*6/uL Periton Neutrophils % Periton Lymphocytes % Peritoneal Monocytes % COVID-19 (MAHAD) COVID-19 Clin Com 03/09/20 03/09/20 03/09/20 Range/Units 08:21 08:21 09:29 WBC (4.8-10.8) X10*3/uL RBC (4.60-5.80) X10*6/uL Hgb (14.0-18.0) g/dl Hct (42-52) % MCV (80-98) fL MCH (27.0-33.0) pg MCHC (31.0-36.0) g/dl RDW (11.0-16.0) % Plt Count (160-400) X10*3/uL MPV (9.4-12.4) fL Immature Gran % (Auto) (0.0-0.4) % Neut % (Auto) (45-73) % Lymph % (Auto) (20-40) % Morrill % (Auto) (2-11) % Eos % (Auto) (0-4) % Baso % (Auto) (0-2) % Lymph # (Auto) (1.2-4.9) X10*3/uL Morrill # (Auto) (0.1-1.2) X10*3/uL Eos # (Auto) (0.0-0.4) X10*3/uL Baso # (Auto) (0.0-0.2) X10*3/uL Abs Immat Gran (auto) (0.00-0.03) X10*3/uL Absolute Neuts (auto) (2.0-8.3) X10*3/uL Absolute Nucleated RBC (0.0-0.012) X10*3/uL Nucleated RBC % (auto) (0.0-0.2) /100WBC PT (10.8-13.0) SEC INR (0.9-1.1) APTT (24.1-38.0) SEC Sodium Potassium Chloride Carbon Dioxide Anion Gap BUN Creatinine Estim Creat Clear Calc Estimated GFR Random Glucose Lactic Acid (0.5-2.0) mmol/L Calcium Magnesium (1.6-2.6) mg/dL Total Bilirubin Direct Bilirubin AST ALT Alkaline Phosphatase Ammonia 41 Total Protein Albumin Lipase 17 Peritoneal WBC 0.430 X10*3/uL Peritoneal RBC < 0.002 X10*6/uL Periton Neutrophils 76 % Periton Lymphocytes 4 % Peritoneal Monocytes 20 % COVID-19 (MAHAD) COVID-19 Clin Com 03/09/20 03/09/20 03/09/20 Range/Units 11:55 11:55 12:51 WBC (4.8-10.8) X10*3/uL RBC (4.60-5.80) X10*6/uL Hgb (14.0-18.0) g/dl Hct (42-52) % MCV (80-98) fL MCH (27.0-33.0) pg MCHC (31.0-36.0) g/dl RDW (11.0-16.0) % Plt Count (160-400) X10*3/uL MPV (9.4-12.4) fL Immature Gran % (Auto) (0.0-0.4) % Neut % (Auto) (45-73) % Lymph % (Auto) (20-40) % Morrill % (Auto) (2-11) % Eos % (Auto) (0-4) % Baso % (Auto) (0-2) % Lymph # (Auto) (1.2-4.9) X10*3/uL Morrill # (Auto) (0.1-1.2) X10*3/uL Eos # (Auto) (0.0-0.4) X10*3/uL Baso # (Auto) (0.0-0.2) X10*3/uL Abs Immat Gran (auto) (0.00-0.03) X10*3/uL Absolute Neuts (auto) (2.0-8.3) X10*3/uL Absolute Nucleated RBC (0.0-0.012) X10*3/uL Nucleated RBC % (auto) (0.0-0.2) /100WBC PT (10.8-13.0) SEC INR (0.9-1.1) APTT (24.1-38.0) SEC Sodium Potassium Chloride Carbon Dioxide Anion Gap BUN Creatinine Estim Creat Clear Calc Estimated GFR Random Glucose Lactic Acid 1.2 (0.5-2.0) mmol/L Calcium Magnesium (1.6-2.6) mg/dL Total Bilirubin Direct Bilirubin AST ALT Alkaline Phosphatase Ammonia Total Protein Albumin Lipase Peritoneal WBC X10*3/uL Peritoneal RBC X10*6/uL Periton Neutrophils % Periton Lymphocytes % Peritoneal Monocytes % COVID-19 (MAHAD) Cancelled Negative COVID-19 Clin Com Cancelled See Note Discharge Plan Discharge Clinical Impression: SBP (spontaneous bacterial peritonitis) Cirrhosis, alcoholic Qualifiers: Ascites presence: with ascites Qualified Code(s): K70.31 - Alcoholic cirrhosis of liver with ascites Ascites Qualifiers: Ascites type: due to alcoholic cirrhosis Qualified Code(s): K70.31 - Alcoholic cirrhosis of liver with ascites Patient Disposition: Admitted As Inpatient [facility] Past Medical History Medical History Alcohol abuse Alcoholism Anemia C. difficile colitis Cirrhosis, alcoholic GIB (gastrointestinal bleeding) History of abdominal paracentesis History of Clostridioides difficile colitis (~10/2019) History of open sigmoidectomy Kidney stone Low vitamin D level Ulcerative colitis Surgical History H/O colectomy History of esophagogastroduodenoscopy (EGD) Hx of colonoscopy Family History Family History Father Hx of thyroid cancer Mother Hx of thyroid disease Daughter No problems noted. 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
--- NOTE | 2020-03-09 06:55 | XR_ITS ---
EXAMINATION: XR CHEST CLINICAL INFORMATION: Shortness of breath COMPARISON: Chest radiograph from 11/24/2019 TECHNIQUE: Frontal view of the chest was obtained. FINDINGS: Left mid and lower lung mello patchy opacity. Small left sided pleural effusion. Bibasilar atelectasis. There is no pneumothorax. The trachea is midline. The cardiac mediastinal silhouette is stable. Aorta demonstrates atherosclerotic calcifications. Osseous structures are intact. Soft tissues are unremarkable. XR/XR chest 1V IMPRESSION: 1. Left mid and lower lung mello patchy opacity. 2. Bibasilar atelectasis. 3. Small left-sided pleural effusion.
--- NOTE | 2020-03-09 06:56 | ECG_ITS ---
Test Reason : WEAKNESS Blood Pressure : / mmHG Vent. Rate : 099 BPM Atrial Rate : 099 BPM P-R Int : 126 ms QRS Dur : 080 ms QT Int : 386 ms P-R-T Axes : 043 015 054 degrees QTc Int : 495 ms Normal sinus rhythm Low voltage QRS Prolonged QT Abnormal ECG When compared with ECG of 16-FEB-2020 18:11, Questionable change in QRS axis Referred By: Amarjit Bryant Electronically Signed By:Merritt Lucas
[2020-03-09 07:27] LABS: MANUAL DIFF FLAG NO
[2020-03-09 07:33] LABS: Basophils Percent Auto 0.1 % (0-2); Eosinophils Percent Auto 0.1 % (0-4); Hematocrit 24.7 % (42-52); Imm Gran Abs Auto 0.06 X10*3/uL (0.00-0.03); Imm Gran Pct Auto 0.4 % (0.0-0.4); Lymphocytes Percent Auto 6.5 % (20-40); Mean Corpuscular HGB Conc 32.4 g/dl (31.0-36.0); Mean Corpuscular Volume 105.1 fL (80-98); Mean Platelet Volume 10.1 fL (9.4-12.4); Monocytes Absolute Auto 0.9 X10*3/uL (0.1-1.2); Monocytes Percent Auto 5.8 % (2-11); Neutrophils Percent Auto 87.1 % (45-73); Platelet Count 259 X10*3/uL (160-400); Red Blood Count 2.35 X10*6/uL (4.60-5.80); Red Cell Distribution Width 20.2 % (11.0-16.0)
[2020-03-09 07:36] LABS: INTERNATIONAL NORM RATIO 2.1 (0.9-1.1); Prothrombin Time 24.6 SEC (10.8-13.0)
[2020-03-09 07:38] LABS: Partial Thromboplastin Time 41.2 SEC (24.1-38.0)
[2020-03-09] MEDS: Lidocaine HCl 1 % MPF 5 ML VIAL INFILTRATI (08:19)
[2020-03-09] MEDS: Albumin Human 25 % 100 ML IV ×4 (08:19→20:43)
[2020-03-09 08:54] LABS: Ammonia 41 umol/L (13-55)
[2020-03-09 09:02] LABS: Lipase 17 U/L (8-78)
[2020-03-09 09:07] LABS: Alanine Aminotransferase 16 U/L (0-40); Albumin Level 1.9 g/dL (3.5-5.0); Alkaline Phosphatase 90 U/L (39-117); Anion Gap 14 (12-20); Aspartate Amino Transferase 68 U/L (5-37); Bilirubin Direct 2.8 mg/dL (0.0-0.5); Bilirubin Total 6.3 mg/dL (0.0-1.0); Blood Urea Nitrogen 12 mg/dL (9-16); Calcium 7.8 mg/dL (8.4-10.2); Carbon Dioxide 23 mmol/L (22-29); Chloride 103 mmol/L (96-108); Creatinine Clr Calc Pharmacy 78.9; Estimated Glomerular Filt Rate > 60; Glucose Random 110 mg/dL (60-115); Potassium 4.9 mmol/l (3.3-5.1); Sodium 135 mmol/L (135-145); Total Protein 7.2 g/dL (6.5-8.0)
[2020-03-09 09:39] LABS: MN% 21.3 %; PMN% 78.7 %
[2020-03-09 09:42] LABS: RBC Peritoneal Fluid < 0.002 X10*6/uL
[2020-03-09 10:09] LABS: BF Shift QC OK YES; Lymphocyte Peritoneal Fl 4 %; Monocytes Peritoneal Fl 20 %; Neutrophils Peritoneal Fluid 76 %
--- NOTE | 2020-03-09 11:02 | PC.NURSE ---
So far 10 liters drained from patient's abdomen, per MD Bryant will continue draining. fluid clear, yellow in color.
[2020-03-09 12:21] LABS: Lactic Acid 1.2 mmol/L (0.5-2.0)
[2020-03-09 12:27] LABS: Magnesium 1.5 mg/dL (1.6-2.6)
[2020-03-09] MEDS: Magnesium Sulfate/H2O 2 GM/50 ML PIGGYBACK IV (13:00)
[2020-03-09] MEDS: cefTRIAXone sodium 2 GM in 0.9 % Sodium Chloride 50 ML IV (13:01)
[2020-03-09 13:18] LABS: COVID-19 Test Negative (Negative)
--- NOTE | 2020-03-09 13:19 | P.HPHOSP_ITS ---
History of Present Illness Date of Service: 03/09/20 Chief Complaint: Abdominal pain This is a 59 year history of alcohol liver cirrhosis with ascites who presents to the emergency department with abdominal pain. He denies any associated nausea, vomiting, diarrhea, fever/chills. He reported significant abdominal distension with associated shortness of breath. Lab work revealed leukocytosis of 15 x 0. Lactic acid was within normal limits. LFTs were at his baseline. He was noted to have significant ascites and he underwent paracentesis with 11 L of fluid removed in the emergency department. Following paracentesis is shortness of breath resolved. Fluid studies were consistent with SBP. He was started on IV ceftriaxone a decision was made to admit him for further management. Review of Systems Review of Systems: Yes all other systems are reviewed and are negative Constitutional: Constitutional: Denies chills and Denies fever(s) Cardiovascular: Cardiovascular: Denies chest pain Respiratory: Respiratory: Denies cough Gastrointestinal: Gastrointestinal: Reports abdominal pain [facility] Medical History Alcohol abuse Alcoholism Anemia C. difficile colitis Cirrhosis, alcoholic GIB (gastrointestinal bleeding) History of abdominal paracentesis History of Clostridioides difficile colitis (~10/2019) History of open sigmoidectomy Kidney stone Low vitamin D level Ulcerative colitis Functional capacity: independent ambulation Family History Father Hx of thyroid cancer Mother Hx of thyroid disease Daughter No problems noted. 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 Meds Allergies Allergy/AdvReac Type Severity Reaction Status Date / Time No Known Allergies Allergy Verified 03/09/20 06:53 [No Known Allergies*] Home Medications Medication Instructions Recorded Confirmed Type cholecalciferol (vitamin D3) 1,250 1,250 mcg PO QWEEK 12/28/19 02/16/20 History mcg (50,000 unit) capsule spironolactone 50 mg tablet 50 mg PO DAILY 12/28/19 02/16/20 History Physical Exam Vital Signs and Narrative: Vital Signs: Last Vital Signs Temp 99.4 F 03/09/20 11:13 Pulse 101 H 03/09/20 11:13 Resp 16 03/09/20 11:13 BP 98/56 L 03/09/20 11:13 Pulse Ox 96 03/09/20 11:13 Body Mass Index 24.8 Const: Nutritional Appearance: well nourished Orientation/consciousness: patient oriented x3 HENMT: Head: Yes normocephalic and Yes atraumatic Eyes: Sclerae: sclerae normal Chest: Chest palpation & inspection: normal inspection of the chest Resp: Effort & Inspection: normal respiratory effort and no respiratory distress Cardio: Rate: regular rate Rhythm: regular rhythm GI: Palpation (GI): Soft to palpation and nontender Skin: General skin exam: no rashes or lesions noted Neuro: General: patient oriented x3 Cranial nerves: Yes CN's II-XII intact bilaterally and Yes Bilaterally intact EOM present Extrem: General: Yes normal to inspection Results Labs CBC and Chem 7: 03/09/20 07:20 03/09/20 08:21 Labs: Laboratory Results - last 24 hr 03/09/20 03/09/20 03/09/20 07:19 07:20 07:20 MCV 105.1 H MCH 34.0 H MCHC 32.4 RDW 20.2 H Plt Count 259 D MPV 10.1 Immature Gran % (Auto) 0.4 Neut % (Auto) 87.1 H Lymph % (Auto) 6.5 L Kent % (Auto) 5.8 Eos % (Auto) 0.1 Baso % (Auto) 0.1 Lymph # (Auto) 1.0 L [place] # (Auto) 0.9 Eos # (Auto) 0.0 Baso # (Auto) 0.0 Abs Immat Gran (auto) 0.06 H Absolute Neuts (auto) 13.0 H Absolute Nucleated RBC 0.000 Nucleated RBC % (auto) 0.0 PT 24.6 H INR 2.1 H APTT 41.2 H Anion Gap Estim Creat Clear Calc Estimated GFR Random Glucose Lactic Acid Calcium Magnesium Total Bilirubin Direct Bilirubin AST ALT Alkaline Phosphatase Ammonia Cancelled Total Protein Albumin Lipase Peritoneal WBC Peritoneal RBC Periton Neutrophils Periton Lymphocytes Peritoneal Monocytes COVID-19 (MAHAD) COVID-19 [facility] Com 03/09/20 03/09/20 03/09/20 07:20 07:20 08:21 MCV MCH MCHC RDW Plt Count MPV Immature Gran % (Auto) Neut % (Auto) Lymph % (Auto) Kent % (Auto) Eos % (Auto) Baso % (Auto) Lymph # (Auto) Kent # (Auto) Eos # (Auto) Baso # (Auto) Abs Immat Gran (auto) Absolute Neuts (auto) Absolute Nucleated RBC Nucleated RBC % (auto) PT INR APTT Anion Gap Cancelled 14 Estim Creat Clear Calc Cancelled 78.9 Estimated GFR Cancelled > 60 Random Glucose Cancelled 110 Lactic Acid Calcium Cancelled 7.8 L D Magnesium 1.5 L Total Bilirubin Cancelled 6.3 H Direct Bilirubin Cancelled 2.8 H AST Cancelled 68 H ALT Cancelled 16 Alkaline Phosphatase Cancelled 90 D Ammonia Total Protein Cancelled 7.2 Albumin Cancelled 1.9 L Lipase Cancelled Peritoneal WBC Peritoneal RBC Periton Neutrophils Periton Lymphocytes Peritoneal Monocytes COVID-19 (MAHAD) COVID-19 [facility] 03/09/20 03/09/20 03/09/20 08:21 08:21 09:29 MCV MCH MCHC RDW Plt Count MPV Immature Gran % (Auto) Neut % (Auto) Lymph % (Auto) Kent % (Auto) Eos % (Auto) Baso % (Auto) Lymph # (Auto) Kent # (Auto) Eos # (Auto) Baso # (Auto) Abs Immat Gran (auto) Absolute Neuts (auto) Absolute Nucleated RBC Nucleated RBC % (auto) PT INR APTT Anion Gap Estim Creat Clear Calc Estimated GFR Random Glucose Lactic Acid Calcium Magnesium Total Bilirubin Direct Bilirubin AST ALT Alkaline Phosphatase Ammonia 41 Total Protein Albumin Lipase 17 Peritoneal WBC 0.430 Peritoneal RBC < 0.002 Periton Neutrophils 76 Periton Lymphocytes 4 Peritoneal Monocytes 20 COVID-19 (MAHAD) COVID-19 [facility] 03/09/20 03/09/20 11:55 12:51 MCV MCH MCHC RDW Plt Count MPV Immature Gran % (Auto) Neut % (Auto) Lymph % (Auto) Kent % (Auto) Eos % (Auto) Baso % (Auto) Lymph # (Auto) Kent # (Auto) Eos # (Auto) Baso # (Auto) Abs Immat Gran (auto) Absolute Neuts (auto) Absolute Nucleated RBC Nucleated RBC % (auto) PT INR APTT Anion Gap Estim Creat Clear Calc Estimated GFR Random Glucose Lactic Acid 1.2 Calcium Magnesium Total Bilirubin Direct Bilirubin AST ALT Alkaline Phosphatase Ammonia Total Protein Albumin Lipase Peritoneal WBC Peritoneal RBC Periton Neutrophils Periton Lymphocytes Peritoneal Monocytes COVID-19 (MAHAD) Negative COVID-19 Clin Com See Note Assessment and Plan (1) SBP (spontaneous bacterial peritonitis): Status: Acute (2) Ascites: Qualifiers: Ascites type: due to alcoholic cirrhosis Qualified Code(s): K70.31 - Alcoholic cirrhosis of liver with ascites Status: Acute 59-year-old male with history of alcoholic liver cirrhosis with ascites presents to the emergency department with abdominal pain status post paracentesis with removal of 11 L of fluid found to have SBP SBP no sepsis -IV ceftriaxone -albumin Etoh liver cirrohsis reports no ETOH x 6 weeks CIWA LFTs at baseline Continue home diuretics Hypomagnesemia replace and follow mag levls Prolonged QTc 523ms replace mag and follow on tele anemia H/H at baseline dvt ppx - boots code status - full code This case was discussed with
--- NOTE | 2020-03-09 13:46 | PM.EVENT ---
Event Note Date of Service: 03/09/20 Event Note: Patient seen and examined independently and was present during lopez portion of E/M service. Agree with midlevel's history, physical, assessment, and plan. 59-year-old male presented with abdominal pain and distension, 11 L drained from ED, found to have greater than 250 PMNs in ascitic fluid Symptomatic ascites with SBP in patient with alcoholic cirrhosis Ceftriaxone Albumin Follow-up cultures
[2020-03-09] MEDS: 0.9 % Sodium Chloride Flush 3 ML SYRINGE IVFLUSH (15:39)
[2020-03-09] MEDS: Nicotine 14 MG PATCH.TD24 TRANSDERMA (17:16)
[2020-03-09 22:31] LABS: LDH Peritoneal Fluid 42; Total Protein Peritoneal Fluid 0.9
[2020-03-09 22:32] LABS: Glucose Peritoneal Fluid 105
[2020-03-10 02:00] VITALS: BP 93/51; PULSE 92; RESP 18; TEMP 36.6; O2SAT 98
[2020-03-10] MEDS: 0.9 % Sodium Chloride Flush 3 ML SYRINGE IVFLUSH (02:14)
[2020-03-10] MEDS: Albumin Human 25 % 100 ML IV (02:14)
--- NOTE | 2020-03-10 05:45 | PC.NURSE ---
THROUGHOUT THIS SHIFT, PATIENT HAS BEEN ABLE TO MAKE NEEDS KNOWN. DENIES COMPLAINTS AT THIS TIME. REQUESTED AND GIVEN CRANBERRY JUICE, HAM SANDWICH, AND BUTTERSCOTCH PUDDING FOR DINNER. RESTING COMFORTABLY AT THIS TIME. WILL CONTINUE TO MONITOR. IV ACCESS REMAINS PATENT AND FUNCTIONAL.
--- NOTE | 2020-03-10 07:24 | PC.NURSE ---
report taken from ailyn silva pt sitting up in bed, watching videos on phone, appears in good spirits. repositioned self upright to eat breakfast. no apparent distress. pt is admitted as inpt. will continue to monitor for discharge needs.
[2020-03-10 08:08] VITALS: BP 109/64; PULSE 106; O2SAT 98
[2020-03-10] MEDS: cefTRIAXone sodium 2 GM in 0.9 % Sodium Chloride 50 ML IV (08:09)
[2020-03-10] MEDS: Omeprazole 20 MG CAPSULE.DR PO (08:13)
[2020-03-10] MEDS: metroNIDAZOLE 500 MG TABLET PO ×3 (08:13→23:51)
[2020-03-10] MEDS: Nicotine 14 MG PATCH.TD24 TRANSDERMA (08:41)
[2020-03-10 10:14] LABS: Basophils Percent Auto 0.2 % (0-2); Eosinophils Absolute Auto 0.1 X10*3/uL (0.0-0.4); Eosinophils Percent Auto 0.4 % (0-4); Hematocrit 22.3 % (42-52); Hemoglobin 7.3 g/dl (14.0-18.0); Imm Gran Abs Auto 0.06 X10*3/uL (0.00-0.03); Imm Gran Pct Auto 0.4 % (0.0-0.4); Lymphocytes Absolute Auto 1.4 X10*3/uL (1.2-4.9); Lymphocytes Percent Auto 10.1 % (20-40); MANUAL DIFF FLAG SCAN; Mean Corpuscular HGB Conc 32.7 g/dl (31.0-36.0); Mean Corpuscular Hemoglobin 34.3 pg (27.0-33.0); Mean Corpuscular Volume 104.7 fL (80-98); Mean Platelet Volume 9.6 fL (9.4-12.4); Monocytes Absolute Auto 1.5 X10*3/uL (0.1-1.2); Monocytes Percent Auto 11.2 % (2-11); Neutrophils Absolute Auto 10.6 X10*3/uL (2.0-8.3); Neutrophils Percent Auto 77.7 % (45-73); Platelet Count 210 X10*3/uL (160-400); Red Blood Count 2.13 X10*6/uL (4.60-5.80); Red Cell Distribution Width 19.3 % (11.0-16.0); SCAN SMEAR FLAG 1; White Blood Count 13.7 X10*3/uL (4.8-10.8)
[2020-03-10 10:34] LABS: SLIDE REVIEW VERIFIED
[2020-03-10 10:53] LABS: Alanine Aminotransferase 13 U/L (0-40); Albumin Level 2.2 g/dL (3.5-5.0); Alkaline Phosphatase 67 U/L (39-117); Anion Gap 12 (12-20); Aspartate Amino Transferase 67 U/L (5-37); Bilirubin Direct 2.1 mg/dL (0.0-0.5); Bilirubin Total 3.5 mg/dL (0.0-1.0); Blood Urea Nitrogen 12 mg/dL (9-16); Calcium 7.4 mg/dL (8.4-10.2); Carbon Dioxide 22 mmol/L (22-29); Chloride 104 mmol/L (96-108); Creatinine Clr Calc Pharmacy 92.1; Estimated Glomerular Filt Rate > 60; Glucose Random 124 mg/dL (60-115); Magnesium 1.9 mg/dL (1.6-2.6); Potassium 4.3 mmol/l (3.3-5.1); Sodium 134 mmol/L (135-145); Total Protein 5.8 g/dL (6.5-8.0)
--- NOTE | 2020-03-10 11:02 | P.PNIM_ITS ---
Subjective Subjective Date of Service: 03/10/20 Interval History: abd pain resolved Cardiovascular Cardiovascular: Reports no additional cardiovascular complaints Respiratory Respiratory: Reports no additional respiratory complaints Physical Exam Vital Signs: Vital Signs: Last Vital Signs Temp 97.8 F 03/10/20 02:00 Pulse 106 H 03/10/20 08:08 Resp 18 03/10/20 02:00 BP 109/64 03/10/20 08:08 Pulse Ox 98 03/10/20 08:08 Body Mass Index 24.8 General: AO X 3, no acute distress Resp: CTA bilateral CVS: S1,S2,RRR GI: soft, non tender, non distended Neuro: motor grossly intact Psych: appropriate affect Objective Data Current Medications Generic Name Dose Route Start Last Admin Trade Name Freq PRN Reason Stop Dose Admin Acetaminophen 650 mg 03/09/20 12:39 Acetaminophen 325 Mg Tablet PO Q6H PRN Pain, Mild (Pain Scale 1-3) Docusate Sodium 100 mg 03/09/20 12:39 Docusate Sodium 100 Mg Capsule PO DAILY PRN Constipation Ceftriaxone Sodium 2 gm/ 50 mls @ 100 mls/hr 03/10/20 07:00 03/10/20 08:42 Sodium Chloride IV Infused Q24H [facility] Infusion Albumin Human 100 mls @ 100 mls/hr 03/11/20 08:00 Kedbumin 25 % IV 03/11/20 20:59 Q6H [facility] Metronidazole 500 mg 03/10/20 08:00 03/10/20 08:13 Metronidazole 500 Mg Tablet PO 500 mg Q8H [facility] Administration Nicotine 14 mg 03/09/20 15:40 03/10/20 08:41 Nicotine 14 Mg Patch.Td24 TRANSDERMA 14 mg DAILY [facility] Administration Omeprazole 20 mg 03/10/20 08:00 03/10/20 08:13 Omeprazole 20 Mg Capsule.Dr PO 20 mg DAILY@0630 [facility] Administration Sodium Chloride 3 ml 03/09/20 16:00 03/10/20 08:09 0.9 % Sodium Chloride Flush 3 Ml Syringe IVFLUSH Not Given QSHIFT [facility] Labs CBC & Chem 7: 03/10/20 10:05 03/10/20 10:05 Microbiology Microbiology Results: Microbiology 03/09/20 Unknown Peritoneal Fluid Gram Stain - Final 03/09/20 Unknown Peritoneal Fluid Anaerobic Culture - Preliminary No growth to date. 03/09/20 Unknown Peritoneal Fluid Body Fluid Culture - Preliminary No growth to date. Assessment and Plan (1) SBP (spontaneous bacterial peritonitis): Status: Acute (2) Ascites: Status: Acute Assessment and Plan: 59-year-old male with history of alcoholic liver cirrhosis with ascites presents to the emergency department with abdominal pain status post paracentesis with removal of 11 L of fluid found to have SBP SBP no sepsis gram stain negative so far, follow up cultures continue ceftriaxone s/p 1.5mg/kg albumin on 03/09/2020 plan for 1mg/kg albumin on 03/11/2020 Etoh liver cirrohsis reports no ETOH x 6 weeks CIWA LFTs at baseline Hypomagnesemia replaced anemia H/H at baseline
--- NOTE | 2020-03-10 14:44 | PC.NURSE ---
pt ate all of lunch, appears to be in good spirits. abena. abraham.
--- NOTE | 2020-03-10 16:03 | PC.NURSE ---
took afternoon abx w/o issue. tolerating po. nad. wctm.
[2020-03-10 19:43] VITALS: BP 104/65; PULSE 109; RESP 16; O2SAT 98
[2020-03-10 19:44] VITALS: TEMP 37.4
--- NOTE | 2020-03-10 19:56 | PC.NURSE ---
Report taken from Matthew, this RN resuming care. Pt found resting in bed in NAD, denies pain. VSS, pt noted to be be slightly tachycardic @ 110 bpm with a oral temp of 99.4. This RN contacting the hospitalist via [employer] regarding pt condition due to recent abdominal tap. Continue to monitor.
[2020-03-10 22:09] VITALS: BP 114/68; PULSE 108; RESP 16; TEMP 37.2
[2020-03-10 23:51] VITALS: PULSE 113; RESP 20
[2020-03-11] VITALS (8 sets, daily range): BP systolic 102–124; BP diastolic 62–70; PULSE 100–109; RESP 16–18; TEMP 36.8–37.7; O2SAT 97–100; BMI 24.4
--- NOTE | 2020-03-11 05:35 | PC.NURSE ---
Labs obtained and sent. Pt aware of pending medications. Continue to monitor.
[2020-03-11 05:39] LABS: Hematocrit 24.1 % (42-52); Hemoglobin 7.8 g/dl (14.0-18.0); Mean Corpuscular HGB Conc 32.4 g/dl (31.0-36.0); Mean Corpuscular Hemoglobin 34.1 pg (27.0-33.0); Mean Corpuscular Volume 105.2 fL (80-98); Platelet Count 217 X10*3/uL (160-400); Red Blood Count 2.29 X10*6/uL (4.60-5.80); Red Cell Distribution Width 18.6 % (11.0-16.0); White Blood Count 12.1 X10*3/uL (4.8-10.8)
[2020-03-11 05:40] LABS: Basophils Percent Auto 0.2 % (0-2); Eosinophils Absolute Auto 0.1 X10*3/uL (0.0-0.4); Eosinophils Percent Auto 0.7 % (0-4); Imm Gran Abs Auto 0.06 X10*3/uL (0.00-0.03); Imm Gran Pct Auto 0.5 % (0.0-0.4); Lymphocytes Absolute Auto 1.2 X10*3/uL (1.2-4.9); Lymphocytes Percent Auto 9.8 % (20-40); Mean Platelet Volume 9.6 fL (9.4-12.4); Monocytes Absolute Auto 1.3 X10*3/uL (0.1-1.2); Monocytes Percent Auto 10.9 % (2-11); Neutrophils Absolute Auto 9.4 X10*3/uL (2.0-8.3); Neutrophils Percent Auto 77.9 % (45-73)
[2020-03-11 05:42] LABS: MANUAL DIFF FLAG NO
[2020-03-11] MEDS: Omeprazole 20 MG CAPSULE.DR PO (05:53)
--- NOTE | 2020-03-11 05:56 | PC.NURSE ---
Pt medicated with Prilosec, unable to medicate with Rocephin before 0700. VSS. Continue to monitor.
[2020-03-11 06:14] LABS: Alanine Aminotransferase 17 U/L (0-40); Albumin Level 2.2 g/dL (3.5-5.0); Alkaline Phosphatase 78 U/L (39-117); Anion Gap 13 (12-20); Aspartate Amino Transferase 84 U/L (5-37); Bilirubin Direct 1.9 mg/dL (0.0-0.5); Bilirubin Total 3.2 mg/dL (0.0-1.0); Blood Urea Nitrogen 13 mg/dL (9-16); Calcium 7.4 mg/dL (8.4-10.2); Carbon Dioxide 23 mmol/L (22-29); Chloride 102 mmol/L (96-108); Creatinine Clr Calc Pharmacy 89.1; Estimated Glomerular Filt Rate > 60; Glucose Fasting 108 mg/dL (60-99); Potassium 4.4 mmol/l (3.3-5.1); Sodium 134 mmol/L (135-145); Total Protein 6.1 g/dL (6.5-8.0)
[2020-03-11] MEDS: cefTRIAXone sodium 2 GM in 0.9 % Sodium Chloride 50 ML IV (06:52)
--- NOTE | 2020-03-11 06:53 | PC.NURSE ---
Pt medicated per APR, sleeping in bed at this time in NAD.
--- NOTE | 2020-03-11 09:00 | PC.NURSE ---
Pt resting comfortably on stretcher, aware of plan for admission. Denies pain. No distress at this time
[2020-03-11] MEDS: Nicotine 14 MG PATCH.TD24 TRANSDERMA (09:59)
[2020-03-11] MEDS: metroNIDAZOLE 500 MG TABLET PO (09:59)
[2020-03-11] MEDS: Albumin Human 25 % 100 ML IV ×3 (10:00→21:04)
--- NOTE | 2020-03-11 10:13 | MHC.CM.PN ---
Attempted to meet with patient in regards to discharge planning. Nursing care currently being provided. Will attempt to meet again. Continue to monitor for d/c needs.
--- NOTE | 2020-03-11 10:55 | MHC.CM.PN ---
Met with patient in regards to discharge planning. Patient lives alone, ambulates independently and had no services prior to coming to the hospital. PCP is listed as Dr Ovalle. However, patient states he is not active with Dr Ovalle and needs to find a new PCP. List of providers accepting new patients that are contracted with [facility] provided. Patient states his mother has a copy of his HCP. Patient's brother will transport patient home when medically stable. Continue to monitor for d/c needs.
--- NOTE | 2020-03-11 16:20 | P.PNIM_ITS ---
Subjective Subjective Date of Service: 03/11/20 Interval History: the patient was seen and evaluated this morning Laying in bed, feels comfortable denies any abdominal pain, able to pass stool Denies any fever, chills or shortness of breath No reported other overnight events. Systemic review: No fever, chills or weakness No chest pain, palpitation No shortness of breath or coughing No abdominal pain, nausea or vomiting No urinary symptoms No any rash or wounds Physical Exam Vital Signs: Vital Signs: Last Vital Signs Temp 98.9 F 03/10/20 22:09 Pulse 102 H 03/11/20 14:33 Resp 18 03/11/20 14:33 BP 102/66 03/11/20 14:33 Pulse Ox 98 03/11/20 14:33 Body Mass Index 24.8 Constitutional : Alert, oriented, not in distress Neck : Normal inspection, Supple Cardiovascular : RRR, S1 S2, no lower extremity edema Respiratory : Good bilateral air entry, no crackles, wheezes or rhonchi Gastrointestinal: soft, lax, abdominal mildly distended but tympanic, normal bowel movement sounds Skin : Warm/Dry, No rash Neurological : Alert & oriented x3, No focal deficit Objective Data Current Medications Generic Name Dose Route Start Last Admin Trade Name Freq PRN Reason Stop Dose Admin Acetaminophen 650 mg 03/09/20 12:39 Acetaminophen 325 Mg Tablet PO Q6H PRN Pain, Mild (Pain Scale 1-3) Docusate Sodium 100 mg 03/09/20 12:39 Docusate Sodium 100 Mg Capsule PO DAILY PRN Constipation Ceftriaxone Sodium 2 gm/ 50 mls @ 100 mls/hr 03/10/20 07:00 03/11/20 08:08 Sodium Chloride IV Infused Q24H [facility] Infusion Albumin Human 100 mls @ 100 mls/hr 03/11/20 08:00 03/11/20 14:25 Kedbumin 25 % IV 03/11/20 20:59 100 mls/hr Q6H [facility] Administration Metronidazole 500 mg 03/10/20 08:00 03/11/20 09:59 Metronidazole 500 Mg Tablet PO 500 mg Q8H [facility] Administration Nicotine 14 mg 03/09/20 15:40 03/11/20 09:59 Nicotine 14 Mg Patch.Td24 TRANSDERMA 14 mg DAILY [facility] Administration Omeprazole 20 mg 03/10/20 08:00 03/11/20 05:53 Omeprazole 20 Mg Capsule. PO 20 mg DAILY@0630 [facility] Administration Sodium Chloride 3 ml 03/09/20 16:00 03/11/20 10:03 0.9 % Sodium Chloride Flush 3 Ml Syringe IVFLUSH Not Given QSHIFT [facility] Labs CBC & Chem 7: 03/11/20 05:31 03/11/20 05:31 Microbiology Microbiology Results: Microbiology 03/09/20 12:51 Blood - Venous Blood Culture - Preliminary No growth after 48 hours. 03/09/20 12:51 Blood - Venous Blood Culture - Preliminary No growth after 48 hours. 03/09/20 Unknown Peritoneal Fluid Gram Stain - Final 03/09/20 Unknown Peritoneal Fluid Anaerobic Culture - Preliminary No growth to date. 03/09/20 Unknown Peritoneal Fluid Body Fluid Culture - Final No growth after 2 days Assessment and Plan (1) SBP (spontaneous bacterial peritonitis): Status: Acute (2) Ascites: Status: Acute Assessment and Plan: 59-year-old male with history of alcoholic liver cirrhosis with ascites presents to the emergency department with abdominal pain status post paracentesis with removal of 11 L of fluid found to have SBP SBP no sepsis Negative blood cultures continue ceftriaxone day 3 s/p 1.5mg/kg albumin on 03/09/2020 plan for 1mg/kg albumin on 03/11/2020 Plan to discharge by tomorrow on oral antibiotics if cultures remain negative Etoh liver cirrohsis reports no ETOH x 6 weeks CIWA LFTs at baseline Hypomagnesemia replaced anemia H/H at baseline
[2020-03-11] MEDS: 0.9 % Sodium Chloride Flush 3 ML SYRINGE IVFLUSH ×2 (16:54)
--- NOTE | 2020-03-11 17:01 | PC.NURSE ---
Pt transferred to room 450 at this time with PCT via WC. Report given to Dejah FUNEZ. No distress upon transfer
[2020-03-12] VITALS (7 sets, daily range): BP systolic 106–119; BP diastolic 58–74; PULSE 101–122; RESP 18–20; TEMP 36–37.6; O2SAT 95–98; BMI 24.4
--- NOTE | 2020-03-12 | US_ITS ---
EXAMINATION: ULTRASOUND-GUIDED PARACENTESIS CLINICAL INFORMATION: Ascites. History of recent spontaneous bacterial peritonitis. COMPARISON: Previous CT of the abdomen and pelvis most recent January 2020 paracentesis October 2019 TECHNIQUE: Procedure risks and benefits including vein, infection and low blood pressure were discussed with the patient and consent was obtained. The left lower quadrant was prepped and draped in the usual sterile fashion. The skin and soft tissues were anesthetized with 1% lidocaine plain. Using ultrasound guidance and a 5 Swazi rapid centesis catheter, access to the ascitic fluid was obtained. 8 L of clear yellow fluid was removed. No diagnostic specimen was sent. FINDINGS: There is a large amount of ascites. US/US paracentesis abd w/image IMPRESSION: Ultrasound-guided paracentesis.
[2020-03-12] MEDS: 0.9 % Sodium Chloride Flush 3 ML SYRINGE IVFLUSH ×3 (00:05→16:16)
[2020-03-12] MEDS: Omeprazole 20 MG CAPSULE.DR PO (06:35)
[2020-03-12] MEDS: cefTRIAXone sodium 2 GM in 0.9 % Sodium Chloride 50 ML IV (06:36)
[2020-03-12 07:58] LABS: Hematocrit 22.2 % (42-52); Hemoglobin 7.3 g/dl (14.0-18.0); Mean Corpuscular HGB Conc 32.9 g/dl (31.0-36.0); Mean Corpuscular Volume 103.3 fL (80-98); Mean Platelet Volume 9.8 fL (9.4-12.4); Platelet Count 209 X10*3/uL (160-400); Red Blood Count 2.15 X10*6/uL (4.60-5.80); Red Cell Distribution Width 18.1 % (11.0-16.0); White Blood Count 10.6 X10*3/uL (4.8-10.8)
[2020-03-12 08:27] LABS: Alanine Aminotransferase 14 U/L (0-40); Albumin Level 2.7 g/dL (3.5-5.0); Alkaline Phosphatase 88 U/L (39-117); Anion Gap 12 (12-20); Aspartate Amino Transferase 69 U/L (5-37); Bilirubin Direct 1.5 mg/dL (0.0-0.5); Bilirubin Total 2.3 mg/dL (0.0-1.0); Blood Urea Nitrogen 12 mg/dL (9-16); Calcium 7.9 mg/dL (8.4-10.2); Carbon Dioxide 24 mmol/L (22-29); Chloride 103 mmol/L (96-108); Creatinine Clr Calc Pharmacy 101.3; Estimated Glomerular Filt Rate > 60; Glucose Random 99 mg/dL (60-115); Potassium 4.4 mmol/l (3.3-5.1); Sodium 135 mmol/L (135-145); Total Protein 6.3 g/dL (6.5-8.0)
[2020-03-12] MEDS: Nicotine 14 MG PATCH.TD24 TRANSDERMA (08:44)
[2020-03-12] MEDS: Spironolactone 25 MG TABLET 50 MG PO (08:44)
[2020-03-12] MEDS: Folic Acid 1 MG TABLET PO (08:45)
[2020-03-12] MEDS: Furosemide 20 MG TABLET PO (08:45)
--- NOTE | 2020-03-12 09:32 | P.CNGI_ITS ---
History of Present Illness Data of Consult Service Date: 03/12/20 Requesting physician: Shar Glez Primary Care Provider: Unknown Physician HPI Reason for consult: decompensated cirrhosis 59 year history of alcohol liver cirrhosis with ascites who I am asked to see for assessment for decompensated liver disease. He presented this admission with abdominal distention and SOB as well as generalized moderate severe abdominal pain but more around mid abdomen. He was noted to have significant ascites and he underwent paracentesis with 11 L of fluid removed in the emergency department. Lab analysis of fluid with >400 white cell and 76% neutrophils so fulfilled criteria for SBP by cell count although no growth on culture. He has received IV albumin and IV ceftriaxone. He maintains he has been alcohol free for 8 weeks, but was not aware of importance of salt restriction. Denies confusion, shakes. He had admission 01/2020 and found to have c diff colitis. Saw Holt from [facility] 10/2019 for inpatient stay for anemia, alcohol hepatitis and had EGD with esophagitis, duodenitis, no mention made of varices. Review of Systems Review of Systems: Constitutional : No Weight loss, No Fever, No Chills ENT/Mouth : No sore throat, No Rhinorrhea Eyes: No Eye Pain, No Swelling Cardiovascular : No Chest Pain, no palpitations Respiratory : No Cough, No Sputum, Gastrointestinal : no Nausea, No Vomiting, No Diarrhea, No abdominal Pain, no black stools Genitourinary : No Dysuria, No Urinary Frequency Musculoskeletal : No joint pain, No Myalgias, No Joint Swelling Skin : No Skin Lesions, No rash Neuro : No Weakness, No Numbness, No Dizziness, No Headache Psych : No Anxiety/Panic, No Depression Heme/Lymph: No Bruising, No Lymphadenopathy Endocrine : No Polyuria, No Polydipsia All other systems reviewed and are negative Yes all other systems are reviewed and are negative [facility] Past Medical History Medical History Alcohol abuse Alcoholism Anemia C. difficile colitis Cirrhosis, alcoholic GIB (gastrointestinal bleeding) History of abdominal paracentesis History of Clostridioides difficile colitis (~10/2019) History of open sigmoidectomy Kidney stone Low vitamin D level Ulcerative colitis Functional capacity: independent ambulation Family History Family History Father Hx of thyroid cancer Mother Hx of thyroid disease Daughter No problems noted. Son Autism Surgical History Surgical History H/O colectomy History of esophagogastroduodenoscopy (EGD) Hx of colonoscopy Social History Social History Household Members: None Housing: House Alcohol intake: current Smoking Status: Current every day smoker Tobacco Type: Cigarette Packs Per Day: 1 Cigarettes Per Day: 20.0 Smoked in Last 30 Days: Yes Patient Interested in Nicotine Replacement: Yes Patient Given Instructions on How to Stop Smoking: Yes Date Education Initiated: 03/11/20 Second Hand Smoke Exposure: Yes Use of substances other than those prescribed or required for medical reasons: No Currently Displaying Signs/Symptoms of Drug Intoxication Withdrawal: No Have you been hit, kicked, punched, or otherwise hurt by someone within the past year? 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 Meds Allergies Allergy/AdvReac Type Severity Reaction Status Date / Time No Known Allergies Allergy Verified 03/09/20 06:53 [No Known Allergies*] Home Medications Medication Instructions Recorded Confirmed Type cholecalciferol (vitamin D3) 1,250 1,250 mcg PO QWEEK 12/28/19 03/09/20 History mcg (50,000 unit) capsule spironolactone 50 mg tablet 50 mg PO DAILY 12/28/19 03/09/20 History Physical Exam Vital Signs: Vital Signs: Last Vital Signs Temp 99.6 F 03/12/20 07:08 Pulse 122 H 03/12/20 08:44 Resp 18 03/12/20 07:08 BP 109/65 03/12/20 08:44 Pulse Ox 95 03/12/20 07:08 Body Mass Index 24.4 Const: General: alert, awake and ill appearing Nutritional Appearance: well nourished and malnourished Orientation/consciousness: patient oriented x3 Limitations: no limitations HENMT: Head: Yes normocephalic and Yes atraumatic Ears: hearing grossly normal bilaterally General nose exam: Normal external nose present Face and sinus: Yes normal facial exam Mouth: Normal oral and palatal mucosa present Teeth and gingiva: dentition normal Throat: Yes posterior oropharynx normal Eyes: Conjunctivae: conjunctival abnormal (Pallor) Sclerae: sclerae normal and scleral abnormal (Icterus) Neck: Neck: Yes normal visual inspection Chest: Chest palpation & inspection: normal inspection of the chest and normal palpation of entire chest wall Resp: Effort & Inspection: normal respiratory effort and no respiratory distress Auscultation: clear to auscultation bilaterally, no crackles and no rales Cardio: Jugular venous distension: no JVD Palpation: normal PMI Rate: regular rate Rhythm: regular rhythm Heart sounds: S1 normal heart sound present and S2 normal heart sound present GI: Inspection: Yes normal to inspection Palpation (GI): Firmness to palpation present (GI), nontender, no guarding, Ascites present and No Rebound tenderness present Percussion: Yes Fluid wave present Back/Spine/Pelvis: Thoracic/Lumbar Spine: thoracic and lumbar spine normal to inspection Skin: Other: Pallor+ General skin exam: no rashes or lesions noted Rashes: no rashes Neuro: General: patient oriented x3, moves all extremities, no focal motor deficits and CN's II-XI intact bilaterally Cranial nerves: Yes CN's II-XII intact bilaterally and Yes Bilaterally intact EOM present Extrem: General: Yes normal to inspection and Yes pedal edema (3+ pedal edema) Psych: Appearance: grossly normal Results Labs CBC & Chem 7: 03/12/20 07:45 03/12/20 07:45 Labs: Short CBC 03/12/20 Range/Units 07:45 WBC 10.6 (4.8-10.8) X10*3/uL Hgb 7.3 L (14.0-18.0) g/dl Hct 22.2 L (42-52) % Plt Count 209 (160-400) X10*3/uL BMP 03/12/20 07:45 Sodium 135 Potassium 4.4 Chloride 103 Carbon Dioxide 24 BUN 12 Creatinine 0.80 Calcium 7.9 L D Liver Function 03/12/20 Range/Units 07:45 Total Bilirubin 2.3 H (0.0-1.0) mg/dL Direct Bilirubin 1.5 H (0.0-0.5) mg/dL AST 69 H (5-37) U/L ALT 14 (0-40) U/L Alkaline Phosphatase 88 (39-117) U/L Albumin 2.7 L D (3.5-5.0) g/dL Microbiology Microbiology Results: Microbiology 03/09/20 12:51 Blood - Venous Blood Culture - Preliminary No growth after 48 hours. 03/09/20 12:51 Blood - Venous Blood Culture - Preliminary No growth after 48 hours. 03/09/20 Unknown Peritoneal Fluid Gram Stain - Final 03/09/20 Unknown Peritoneal Fluid Anaerobic Culture - Preliminary No growth to date. 03/09/20 Unknown Peritoneal Fluid Body Fluid Culture - Final No growth after 2 days Assessment and Plan (1) SBP (spontaneous bacterial peritonitis): Status: Acute (2) Ascites: Qualifiers: Ascites type: due to alcoholic cirrhosis Qualified Code(s): K70.31 - Alcoholic cirrhosis of liver with ascites Status: Acute (3) Cirrhosis, alcoholic: Qualifiers: Ascites presence: with ascites Qualified Code(s): K70.31 - Alcoholic cirrhosis of liver with ascites Status: Acute (4) Anemia: Qualifiers: Anemia type: iron deficiency Iron deficiency anemia type: unspecified iron deficiency Qualified Code(s): D50.9 - Iron deficiency anemia, unspecified Status: Acute 1/ Decompensated alcoholic liver cirrhosis, with ascites, MELD 20 (23% 3 month mortality) 2/ Chronic anemia from mix of cirrhosis, splenic sequestration and intercurrent infection and illness, chronic disease,malnutrition 3/ Ascites, prob transudate, releated to cirrhosis, no SAAG can be calculated at this time, complicated by SBP PLAN: 1/ Ascites; given appropriate treatment with albumin and IV ABX per primary team, would d/c on PO cipro or norfloxacin once a day (e.g cipro 500 mg daily), dieticina review on low salt diet, can commence aldactone 50 mg and lasix 20 mg, monitor BMP 2/ check zn and replace if low, check folate, b12,iron studies 3/ multivitamins and thiamine, chec iron studies if low give IV iron prior to d/c 4/ watch out for recurrence of c diff, can take probiotic with ABX above 5/ o/p EGD repeat since he had decompensated cirrhosis now 6/ he will need o/p f/u for MRI for HCC screening and liver serologies to r/o o ther etiologies of liver cirrhosis. 7/ recommend high protein diet to prevent sarcopenia, 1.1g/kg of protein daily, can add ensure,boost- 8/will need vaccine for flu, pneumonia, possibly Hep A/B 9/ advised on importance of alcohol abstinence, not transplant candidate right now
--- NOTE | 2020-03-12 11:16 | MHC.CLN ---
RE: CONSULT 75-100% PO INTAKE DIET RX: REGULAR-APPROPRIATE WILL START ENSURE TID TO INCREASE KCALS R/T LOW ALBUMIN AND FRAGILE SKIN MONITOR NH3 LEVELS CLOSELY R/T INCREASED PO PROTEIN INTAKE SECONDARY TO CIRRHOSIS WITH ASCITES SEE ALSO CLINICAL NUTRITION ASSESSMENT
--- NOTE | 2020-03-12 11:44 | MHC.RECOVSUP ---
Recovery Support note: Patient is a 59 year old [place] speaking male who presented to [facility] due to fluid buildup and was medically admitted. This proposal lead writer and asset recovery specialist met with patient in room 450-1 to discuss his alcohol use and recovery. Patient is known to the Recovery Support Team from previous consultations. Patient reports he has been able to maintain sobriety since his last medical admission by utilizing AA as a support. Patient reports he gets together with his brother and another friend and they have dinner and attend AA zoom meetings together. Patient reports this has been working really well for him and that he looks forward to the meetings. Patient reports he has a sponsor who he reaches out to when he needs to and that they get coffee together. Patient acknowledges that continuing to drink would have been detrimental to his health and he reports full intent to continue with this lifestyle change. Patient also reports his family has been very supportive of him in this endeavor. Patient reports he still has the resources provided from the last consultation and that he will reach out if he needs additional support.
--- NOTE | 2020-03-12 14:01 | HO.PM.IMPN ---
Subjective Subjective Date of Service: 03/12/20 Interval History: the patient was seen and evaluated this morning Laying in bed, feels comfortable denies any abdominal pain, but has abdomen distension today Denies any fever, chills or shortness of breath No reported other overnight events. Systemic review: No fever, chills or weakness No chest pain, palpitation No shortness of breath or coughing No abdominal pain, nausea or vomiting No urinary symptoms No any rash or wounds Physical Exam Vital Signs: Vital Signs: Last Vital Signs Temp 99.5 F 03/12/20 10:49 Pulse 105 H 03/12/20 10:49 Resp 20 03/12/20 10:49 BP 110/74 03/12/20 10:49 Pulse Ox 96 03/12/20 10:49 Body Mass Index 24.4 Constitutional : Alert, oriented, not in distress Neck : Normal inspection, Supple Cardiovascular : RRR, S1 S2, no lower extremity edema Respiratory : Good bilateral air entry, no crackles, wheezes or rhonchi Gastrointestinal: soft, lax, distended abdomen with moderate amount of ascites and dull on percussion Skin : Warm/Dry, No rash Neurological : Alert & oriented x3, No focal deficit Objective Data Current Medications Generic Name Dose Route Start Last Admin Trade Name Freq PRN Reason Stop Dose Admin Acetaminophen 650 mg 03/09/20 12:39 Acetaminophen 325 Mg Tablet PO Q6H PRN Pain, Mild (Pain Scale 1-3) Docusate Sodium 100 mg 03/09/20 12:39 Docusate Sodium 100 Mg Capsule PO DAILY PRN Constipation Folic Acid 1 mg 03/12/20 09:00 03/12/20 08:45 Folic Acid 1 Mg Tablet PO 1 mg DAILY SHAUN Administration Furosemide 20 mg 03/12/20 09:00 03/12/20 08:45 Furosemide 20 Mg Tablet PO 20 mg DAILY SHAUN Administration Protocol Ceftriaxone Sodium 2 gm/ 50 mls @ 100 mls/hr 03/10/20 07:00 03/12/20 07:08 Sodium Chloride IV Infused Q24H SHAUN Infusion Albumin Human 100 mls @ 100 mls/hr 03/12/20 17:00 Kedbumin 25 % IV 03/13/20 05:59 Q6H SHAUN Nicotine 14 mg 03/09/20 15:40 03/12/20 08:44 Nicotine 14 Mg Patch.Td24 TRANSDERMA 14 mg DAILY SHAUN Administration Omeprazole 20 mg 03/10/20 08:00 03/12/20 06:35 Omeprazole 20 Mg Capsule.Dr PO 20 mg DAILY@0630 SHAUN Administration Sodium Chloride 3 ml 03/09/20 16:00 03/12/20 08:44 0.9 % Sodium Chloride Flush 3 Ml Syringe IVFLUSH 3 ml QSHIFT SHAUN Administration Spironolactone 50 mg 03/12/20 09:00 03/12/20 08:44 Spironolactone 25 Mg Tablet PO 50 mg DAILY SHAUN Administration Protocol Labs CBC & Chem 7: 03/12/20 07:45 03/12/20 07:45 Microbiology Microbiology Results: Microbiology 03/09/20 Unknown Peritoneal Fluid Gram Stain - Final 03/09/20 Unknown Peritoneal Fluid Anaerobic Culture - Preliminary No growth to date. 03/09/20 Unknown Peritoneal Fluid Body Fluid Culture - Final No growth after 2 days 03/09/20 12:51 Blood - Venous Blood Culture - Preliminary No growth after 48 hours. 03/09/20 12:51 Blood - Venous Blood Culture - Preliminary No growth after 48 hours. Assessment and Plan (1) SBP (spontaneous bacterial peritonitis): Status: Acute (2) Ascites: Status: Acute Assessment and Plan: 59-year-old male with history of alcoholic liver cirrhosis with ascites presents to the emergency department with abdominal pain status post paracentesis with removal of 11 L of fluid found to have SBP SBP no sepsis Negative blood cultures continue ceftriaxone day 4 Paracentesis on 03/09/2020 with 11 L removal Received albumin To repeat paracentesis today for re-collection of fluids To give more albumin post Plan to discharge by tomorrow on oral antibiotics if cultures remain negative Evaluated by dietitian, supplements added Etoh liver cirrohsis reports no ETOH x 6 weeks CIWA LFTs at baseline Hypomagnesemia replaced anemia H/H at baseline
--- NOTE | 2020-03-12 15:40 | HO.RADPN ---
RADIOLOGY Narrative Narrative: Left lower quadrant paracentesis performed using 5 fr catheter. 8L clear yellow fluid removed. No specimen sent.
[2020-03-12] MEDS: Albumin Human 25 % 100 ML IV ×2 (16:17→22:27)
[2020-03-13] VITALS: BP 116/72; PULSE 102; RESP 18; TEMP 37.3; O2SAT 97
[2020-03-13 03:26] VITALS: BP 113/64; PULSE 97; RESP 20; TEMP 37.3; O2SAT 98
[2020-03-13] MEDS: Albumin Human 25 % 100 ML IV (05:12)
[2020-03-13] MEDS: Omeprazole 20 MG CAPSULE.DR PO (05:13)
[2020-03-13 06:00] VITALS: BMI 24.3
[2020-03-13] MEDS: cefTRIAXone sodium 2 GM in 0.9 % Sodium Chloride 50 ML IV (06:11)
[2020-03-13 07:08] LABS: Anion Gap 16 (12-20); Blood Urea Nitrogen 12 mg/dL (9-16); Calcium 7.8 mg/dL (8.4-10.2); Carbon Dioxide 22 mmol/L (22-29); Chloride 102 mmol/L (96-108); Creatinine Clr Calc Pharmacy 93.2; Estimated Glomerular Filt Rate > 60; Glucose Random 110 mg/dL (60-115); Sodium 136 mmol/L (135-145)
[2020-03-13 07:14] VITALS: BP 114/66; PULSE 91; RESP 20; TEMP 37.2; O2SAT 100
[2020-03-13] MEDS: Spironolactone 25 MG TABLET 50 MG PO (09:11)
[2020-03-13] MEDS: Multivitamin TABLET 1 TAB PO (09:11)
[2020-03-13] MEDS: Thiamine HCL 100 MG TABLET PO (09:11)
[2020-03-13] MEDS: Furosemide 20 MG TABLET PO (09:11)
[2020-03-13] MEDS: Nicotine 14 MG PATCH.TD24 TRANSDERMA (09:11)
[2020-03-13] MEDS: Folic Acid 1 MG TABLET PO (09:12)
[2020-03-13 10:29] LABS: Iron 34 mcg/dL (45-160); Magnesium 1.8 mg/dL (1.6-2.6); Total Iron Binding Capacity < 51 mcg/dL (228-428); Unsaturated Iron Binding < 17 ug/dL
[2020-03-13 10:48] LABS: Ferritin 899 ng/mL (20-250)
[2020-03-13 11:22] VITALS: BP 105/68; PULSE 99; RESP 20; TEMP 36.8; O2SAT 98
[2020-03-13 11:32] LABS: Folate 9.8 ng/mL (> or = 4.0); Vitamin B12 724 pg/mL (200-900)
[2020-03-13] MEDS: Sodium Ferric Gluconat/Sucrose 125 MG in 0.9 % Sodium Chloride 100 ML 100 MG IV (12:12)
--- NOTE | 2020-03-13 12:54 | P.DS_ITS ---
DS: Providers Provider Date of Service: 03/13/20 Date of admission: 03/09/20 12:39 Primary care physician: Unknown Physician Consults: 03/12/20 07:47 Consult to Gastroenterology Routine Consulting Provider: Arun Galloway Reason for consultation: Decompensated Liver cirrhosis with ascites, for eval and manager long term care manageme DS: Diagnosis Discharge Diagnosis (1) SBP (spontaneous bacterial peritonitis): Status: Acute (2) Ascites: Status: Acute (3) Cirrhosis, alcoholic: Status: Acute (4) Anemia: Status: Acute (5) Decompensated liver disease: Status: Acute (6) Hypoalbuminemia due to protein-calorie malnutrition: Status: Acute (7) Iron deficiency anemia: Status: Acute DS: Medications Discharge Medications Home Medications: Home Medications Medication Instructions Recorded Confirmed cholecalciferol (vitamin D3) 1,250 1,250 mcg PO QWEEK 12/28/19 03/09/20 mcg (50,000 unit) capsule spironolactone 50 mg tablet 50 mg PO DAILY 12/28/19 03/09/20 Previous Rx's Medication Instructions Recorded folic acid 1 mg tablet 1 mg PO DAILY #30 tab 12/28/19 thiamine HCl (vitamin B1) 100 mg 100 mg PO DAILY 30 Days #30 tab 12/28/19 tablet loperamide 2 mg PO Q4H PRN #20 cap 02/21/20 omeprazole 20 mg PO DAILY@0630 #30 cap 02/21/20 metronidazole 500 mg PO Q8H #30 tab 02/25/20 ciprofloxacin HCl [Cipro] 500 mg PO BID #4 tab 03/13/20 ferrous sulfate 325 mg PO DAILY #30 tab 03/13/20 furosemide 20 mg PO DAILY #30 tab 03/13/20 multivitamin with folic acid 1 tab PO DAILY #30 tab 03/13/20 [Tab-A-Daniel] nicotine 14 mg TRANSDERMAL DAILY #30 ea 03/13/20 DS: Summary Hospital Course Hospital Course: Admission note HPI This is a 59 year history of alcohol liver cirrhosis with ascites who presents to the emergency department with abdominal pain. He denies any associated nausea, vomiting, diarrhea, fever/chills. He reported significant abdominal distension with associated shortness of breath. Lab work revealed leukocytosis of 15 x 0. Lactic acid was within normal limits. LFTs were at his baseline. He was noted to have significant ascites and he underwent paracentesis with 11 L of fluid removed in the emergency department. Following paracentesis is shortness of breath resolved. Fluid studies were consistent with SBP. He was started on IV ceftriaxone a decision was made to admit him for further management. Hospital course The patient presented to the hospital with abdominal pain and distension. Noticed to have significant amount of ascites which was drained out of almost 11 L with paracentesis on March 09. The analysis of the fluid was concerning for SBP. The patient was treated primarily with IV antibiotics of ceftriaxone with good response over the course of hospital stay. Culture from the fluid remained negative. He collected more ascites during the hospital stay and had to go through a 2nd paracentesis removing 8 L of fluid. He received supplement and albumin IV after each session of paracentesis. In you Noticed to have low iron stores and received a dose of IV iron. Evaluated by control officer who recommended no intervention at this point and to follow-up as outpatient for EGD and further imaging to evaluate the liver. to be discharged on ciprofloxacin as antibiotic and to start Lasix for fluid management. Time Spent with Patient Time attestation: Total time spent providing and/or coordinating discharge services: Discharge coordination time: Greater than 30 minutes Physical Exam Vital Signs: Vital Signs: Last Vital Signs Temp 98.3 F 03/13/20 11:22 Pulse 99 03/13/20 11:22 Resp 20 03/13/20 11:22 BP 105/68 03/13/20 11:22 Pulse Ox 98 03/13/20 11:22 Body Mass Index 24.3 Constitutional : Alert, oriented, not in distress Neck : Normal inspection, Supple Cardiovascular : RRR, S1 S2, no lower extremity edema Respiratory : Good bilateral air entry, no crackles, wheezes or rhonchi Gastrointestinal: soft, lax, mildly distended abdomen, no ascites noted today Skin : Warm/Dry, No rash Neurological : Alert & oriented x3, No focal deficit DS: Data Data Completed and Pending Completed studies during hospitalization [Text1]: Procedures Detoxification Services for Substance Abuse Treatment (02/17/20) Drainage of Peritoneal Cavity, Percutaneous Approach (02/17/20) Transfusion of Nonautologous Red Blood Cells into Peripheral Vein, Percutaneous Approach (02/17/20) Labs on day of discharge: Laboratory Tests 03/09/20 03/09/20 03/09/20 07:19 07:20 07:20 WBC 15.0 H RBC 2.35 L Hgb 8.0 L Hct 24.7 L MCV 105.1 H MCH 34.0 H MCHC 32.4 RDW 20.2 H Plt Count 259 D MPV 10.1 Immature Gran % (Auto) 0.4 Neut % (Auto) 87.1 H Lymph % (Auto) 6.5 L [place] % (Auto) 5.8 Eos % (Auto) 0.1 Baso % (Auto) 0.1 Lymph # (Auto) 1.0 L [place] # (Auto) 0.9 Eos # (Auto) 0.0 Baso # (Auto) 0.0 Abs Immat Gran (auto) 0.06 H Absolute Neuts (auto) 13.0 H Absolute Nucleated RBC 0.000 Nucleated RBC % (auto) 0.0 Smear Tech's Comments PT 24.6 H INR 2.1 H APTT 41.2 H Sodium Potassium Chloride Carbon Dioxide Anion Gap BUN Creatinine Estim Creat Clear Calc Estimated GFR Random Glucose Fasting Glucose Lactic Acid Calcium Magnesium Iron TIBC % Saturation Unsat Iron Binding Ferritin Total Bilirubin Direct Bilirubin AST ALT Alkaline Phosphatase Ammonia Cancelled Total Protein Albumin Lipase Vitamin B12 Folate Peritoneal WBC Peritoneal RBC Periton Neutrophils Periton Lymphocytes Peritoneal Monocytes Peritoneal Tot Protein Peritoneal LDH Peritoneal Glucose COVID-19 (MA[facility]AD) COVID-19 Clin Com 03/09/20 03/09/20 03/09/20 07:20 07:20 08:21 WBC RBC Hgb Hct MCV MCH MCHC RDW Plt Count MPV Immature Gran % (Auto) Neut % (Auto) Lymph % (Auto) [place] % (Auto) Eos % (Auto) Baso % (Auto) Lymph # (Auto) [place] # (Auto) Eos # (Auto) Baso # (Auto) Abs Immat Gran (auto) Absolute Neuts (auto) Absolute Nucleated RBC Nucleated RBC % (auto) Smear Tech's Comments PT INR APTT Sodium Cancelled 135 Potassium Cancelled 4.9 Chloride Cancelled 103 Carbon Dioxide Cancelled 23 Anion Gap Cancelled 14 BUN Cancelled 12 Creatinine Cancelled 1.11 Estim Creat Clear Calc Cancelled 78.9 Estimated GFR Cancelled > 60 Random Glucose Cancelled 110 Fasting Glucose Lactic Acid Calcium Cancelled 7.8 L D Magnesium 1.5 L Iron TIBC % Saturation Unsat Iron Binding Ferritin Total Bilirubin Cancelled 6.3 H Direct Bilirubin Cancelled 2.8 H AST Cancelled 68 H ALT Cancelled 16 Alkaline Phosphatase Cancelled 90 D Ammonia Total Protein Cancelled 7.2 Albumin Cancelled 1.9 L Lipase Cancelled Vitamin B12 Folate Peritoneal WBC Peritoneal RBC Periton Neutrophils Periton Lymphocytes Peritoneal Monocytes Peritoneal Tot Protein Peritoneal LDH Peritoneal Glucose COVID-19 (MAHAD) COVID-19 Clin Com 03/09/20 03/09/20 03/09/20 08:21 08:21 09:29 WBC RBC Hgb Hct MCV MCH MCHC RDW Plt Count MPV Immature Gran % (Auto) Neut % (Auto) Lymph % (Auto) [place] % (Auto) Eos % (Auto) Baso % (Auto) Lymph # (Auto) [place] # (Auto) Eos # (Auto) Baso # (Auto) Abs Immat Gran (auto) Absolute Neuts (auto) Absolute Nucleated RBC Nucleated RBC % (auto) Smear Tech's Comments PT INR APTT Sodium Potassium Chloride Carbon Dioxide Anion Gap BUN Creatinine Estim Creat Clear Calc Estimated GFR Random Glucose Fasting Glucose Lactic Acid Calcium Magnesium Iron TIBC % Saturation Unsat Iron Binding Ferritin Total Bilirubin Direct Bilirubin AST ALT Alkaline Phosphatase Ammonia 41 Total Protein Albumin Lipase 17 Vitamin B12 Folate Peritoneal WBC 0.430 Peritoneal RBC < 0.002 Periton Neutrophils 76 Periton Lymphocytes 4 Peritoneal Monocytes 20 Peritoneal Tot Protein Peritoneal LDH Peritoneal Glucose COVID-19 (MAHAD) COVID-19 Clin Com 03/09/20 03/09/20 03/09/20 09:29 11:55 11:55 WBC RBC Hgb Hct MCV MCH MCHC RDW Plt Count MPV Immature Gran % (Auto) Neut % (Auto) Lymph % (Auto) [place] % (Auto) Eos % (Auto) Baso % (Auto) Lymph # (Auto) [place] # (Auto) Eos # (Auto) Baso # (Auto) Abs Immat Gran (auto) Absolute Neuts (auto) Absolute Nucleated RBC Nucleated RBC % (auto) Smear Tech's Comments PT INR APTT Sodium Potassium Chloride Carbon Dioxide Anion Gap BUN Creatinine Estim Creat Clear Calc Estimated GFR Random Glucose Fasting Glucose Lactic Acid 1.2 Calcium Magnesium Iron TIBC % Saturation Unsat Iron Binding Ferritin Total Bilirubin Direct Bilirubin AST ALT Alkaline Phosphatase Ammonia Total Protein Albumin Lipase Vitamin B12 Folate Peritoneal WBC Peritoneal RBC Periton Neutrophils Periton Lymphocytes Peritoneal Monocytes Peritoneal Tot Protein 0.9 Peritoneal LDH 42 Peritoneal Glucose 105 COVID-19 (MAHAD) Cancelled COVID-19 Clin Com Cancelled 03/09/20 03/10/20 03/10/20 12:51 10:05 10:05 WBC 13.7 H RBC 2.13 L Hgb 7.3 L Hct 22.3 L MCV 104.7 H MCH 34.3 H MCHC 32.7 RDW 19.3 H Plt Count 210 MPV 9.6 Immature Gran % (Auto) 0.4 Neut % (Auto) 77.7 H Lymph % (Auto) 10.1 L [place] % (Auto) 11.2 H Eos % (Auto) 0.4 Baso % (Auto) 0.2 Lymph # (Auto) 1.4 [place] # (Auto) 1.5 H Eos # (Auto) 0.1 Baso # (Auto) 0.0 Abs Immat Gran (auto) 0.06 H Absolute Neuts (auto) 10.6 H Absolute Nucleated RBC 0.000 Nucleated RBC % (auto) 0.0 Smear Tech's Comments VERIFIED PT INR APTT Sodium 134 L Potassium 4.3 Chloride 104 Carbon Dioxide 22 Anion Gap 12 BUN 12 Creatinine 0.88 Estim Creat Clear Calc 92.1 Estimated GFR > 60 Random Glucose 124 H Fasting Glucose Lactic Acid Calcium 7.4 L Magnesium 1.9 Iron TIBC % Saturation Unsat Iron Binding Ferritin Total Bilirubin 3.5 H Direct Bilirubin 2.1 H AST 67 H ALT 13 Alkaline Phosphatase 67 D Ammonia Total Protein 5.8 L Albumin 2.2 L Lipase Vitamin B12 Folate Peritoneal WBC Peritoneal RBC Periton Neutrophils Periton Lymphocytes Peritoneal Monocytes Peritoneal Tot Protein Peritoneal LDH Peritoneal Glucose COVID-19 (MAHAD) Negative COVID-19 Clin Com See Note 03/11/20 03/11/20 03/12/20 05:31 05:31 07:45 WBC 12.1 H 10.6 RBC 2.29 L 2.15 L Hgb 7.8 L 7.3 L Hct 24.1 L 22.2 L MCV 105.2 H 103.3 H MCH 34.1 H 34.0 H MCHC 32.4 32.9 RDW 18.6 H 18.1 H Plt Count 217 209 MPV 9.6 9.8 Immature Gran % (Auto) 0.5 H Neut % (Auto) 77.9 H Lymph % (Auto) 9.8 L [place] % (Auto) 10.9 Eos % (Auto) 0.7 Baso % (Auto) 0.2 Lymph # (Auto) 1.2 [place] # (Auto) 1.3 H Eos # (Auto) 0.1 Baso # (Auto) 0.0 Abs Immat Gran (auto) 0.06 H Absolute Neuts (auto) 9.4 H Absolute Nucleated RBC 0.000 0.000 Nucleated RBC % (auto) 0.0 0.0 Smear Tech's Comments PT INR APTT Sodium 134 L Potassium 4.4 Chloride 102 Carbon Dioxide 23 Anion Gap 13 BUN 13 Creatinine 0.91 Estim Creat Clear Calc 89.1 Estimated GFR > 60 Random Glucose Fasting Glucose 108 H Lactic Acid Calcium 7.4 L Magnesium Iron TIBC % Saturation Unsat Iron Binding Ferritin Total Bilirubin 3.2 H Direct Bilirubin 1.9 H AST 84 H ALT 17 Alkaline Phosphatase 78 Ammonia Total Protein 6.1 L Albumin 2.2 L Lipase Vitamin B12 Folate Peritoneal WBC Peritoneal RBC Periton Neutrophils Periton Lymphocytes Peritoneal Monocytes Peritoneal Tot Protein Peritoneal LDH Peritoneal Glucose COVID-19 (MAHAD) COVID-19 fotobabble 03/12/20 03/13/20 03/13/20 07:45 05:16 09:23 WBC RBC Hgb Hct MCV MCH MCHC RDW Plt Count MPV Immature Gran % (Auto) Neut % (Auto) Lymph % (Auto) [place] % (Auto) Eos % (Auto) Baso % (Auto) Lymph # (Auto) [place] # (Auto) Eos # (Auto) Baso # (Auto) Abs Immat Gran (auto) Absolute Neuts (auto) Absolute Nucleated RBC Nucleated RBC % (auto) Smear Tech's Comments PT INR APTT Sodium 135 136 Potassium 4.4 4.0 Chloride 103 102 Carbon Dioxide 24 22 Anion Gap 12 16 BUN 12 12 Creatinine 0.80 0.87 Estim Creat Clear Calc 101.3 93.2 Estimated GFR > 60 > 60 Random Glucose 99 110 Fasting Glucose Lactic Acid Calcium 7.9 L D 7.8 L Magnesium 1.8 Iron 34 L TIBC < 51 L % Saturation TNP Unsat Iron Binding < 17 Ferritin 899 H Total Bilirubin 2.3 H Direct Bilirubin 1.5 H AST 69 H ALT 14 Alkaline Phosphatase 88 Ammonia Total Protein 6.3 L Albumin 2.7 L D Lipase Vitamin B12 Folate Peritoneal WBC Peritoneal RBC Periton Neutrophils Periton Lymphocytes Peritoneal Monocytes Peritoneal Tot Protein Peritoneal LDH Peritoneal Glucose COVID-19 (MAHAD) COVID-19 fotobabble 03/13/20 09:23 WBC RBC Hgb Hct MCV MCH MCHC RDW Plt Count MPV Immature Gran % (Auto) Neut % (Auto) Lymph % (Auto) [place] % (Auto) Eos % (Auto) Baso % (Auto) Lymph # (Auto) [place] # (Auto) Eos # (Auto) Baso # (Auto) Abs Immat Gran (auto) Absolute Neuts (auto) Absolute Nucleated RBC Nucleated RBC % (auto) Smear Tech's Comments PT INR APTT Sodium Potassium Chloride Carbon Dioxide Anion Gap BUN Creatinine Estim Creat Clear Calc Estimated GFR Random Glucose Fasting Glucose Lactic Acid Calcium Magnesium Iron TIBC % Saturation Unsat Iron Binding Ferritin Total Bilirubin Direct Bilirubin AST ALT Alkaline Phosphatase Ammonia Total Protein Albumin Lipase Vitamin B12 724 Folate 9.8 Peritoneal WBC Peritoneal RBC Periton Neutrophils Periton Lymphocytes Peritoneal Monocytes Peritoneal Tot Protein Peritoneal LDH Peritoneal Glucose COVID-19 (MAHAD) COVID-19 Clin Com Preliminary micro results at discharge 03/09/20 Unknown Anaerobic Culture - Preliminary Peritoneal Fluid No growth to date. 03/09/20 12:51 Blood Culture - Preliminary Blood - Venous No growth after 48 hours. 03/09/20 12:51 Blood Culture - Preliminary Blood - Venous No growth after 48 hours. Discharge Plan Discharge Patient Disposition: Home, Self-Care Referrals: Physician,Unknown [Primary Care Provider] - Discharge Medications: New nicotine 14 mg/24 hr Patch 24 Hour 14 mg transdermal DAILY Qty: 30 RF: 0 furosemide 20 mg Tablet 20 mg PO DAILY Qty: 30 RF: 0 multivitamin with folic acid [Tab-A-Daniel] 400 mcg Tablet 1 tab PO DAILY Qty: 30 RF: 0 ferrous sulfate 325 mg (65 mg iron) tablet 325 mg PO DAILY Qty: 30 RF: 2 ciprofloxacin HCl [Cipro] 500 mg tablet 500 mg PO BID Qty: 4 RF: 0 Continued loperamide 2 mg Capsule 2 mg PO Q4H PRN (Reason: diarrhea) Qty: 20 RF: 0 omeprazole 20 mg Capsule,Delayed Release(Dr/Ec) 20 mg PO DAILY@0630 Qty: 30 RF: 0 metronidazole 500 mg Tablet 500 mg PO Q8H Qty: 30 RF: 0 spironolactone 50 mg tablet 50 mg PO DAILY RF: 0 cholecalciferol (vitamin D3) 1,250 mcg (50,000 unit) capsule 1,250 mcg PO QWEEK RF: 0 folic acid 1 mg tablet 1 mg PO DAILY Qty: 30 RF: 6 thiamine HCl (vitamin B1) 100 mg tablet 100 mg PO DAILY 30 Days Qty: 30 RF: 2 Discharge Orders: Discharge Order (Routine); Ordered 03/13/20 Ordered By: Shar Glez Diet: low salt diet Activity on Discharge: As tolerated Visit Report Forms: Patient Portal Discharge page Care Plan Goals: Read below Health Concerns: Read below Plan of Treatment: You were admitted to the hospital for evaluation of abdominal distension and pain. Paracentesis was done to remove fluid from your abdomen it twice removing 11 and 8 L within for days. Your treated with antibiotics for a concern of abdominal fluid infection with good response over the course of hospital stay. You were evaluated by control officer Dr. Galloway and will need to follow-up with him in the office for EGD and further imaging for the liver. Continue home medications Continue ciprofloxacin for 2 more days Start Lasix daily Start iron supplement Monitor your weight and report changes to your PCP or control officer
[2020-03-16 06:57] LABS: Zinc 33 mcg/dL (60-130)
== END 2020-03-13 14:35 | disposition home or self-care (01) | DRG 248 ==
LOC: HO.ED 13:15 → HO.IMC 03-11 15:53
PROVIDERS: Physician Assistant Medical; Radiology Diagnostic Radiology; Admitting Provider Internal Medicine; Emergency Provider Internal Medicine; Visit Provider Student in an Organized Health Care Education/Training Program
PROC: 0W9G3ZZ Drainage of Peritoneal Cavity, Percutaneous Approach (ICD-10-PCS; principal; 2020-03-12 13:10)
DX: K65.2 Spontaneous bacterial peritonitis (principal); K70.31 Alcoholic cirrhosis of liver with ascites; E88.09 Other disorders of plasma-protein metabolism, not elsewhere classified; F17.210 Nicotine dependence, cigarettes, uncomplicated; E83.42 Hypomagnesemia; D50.9 Iron deficiency anemia, unspecified; R94.31 Abnormal electrocardiogram [ECG] [EKG]; Z20.828 Contact with and (suspected) exposure to other viral communicable diseases; Z71.6 Tobacco abuse counseling; Z79.899 Other long term (current) drug therapy
CPT/HCPCS: 36415; 49083; 71045; 80048; 80076; 82140; 82607; 82728; 82746; 82945; 83540; 83605; 83615; 83690; 83735; 84157; 84630; 85025; 85027; 85610; 85730; 87040; 87070; 87073; 87205; 87635; 89051; 93005; 99284; J0696; J2916; J3475; P9047

== ENCOUNTER 2020-04-29 15:38 | Inpatient (IN) | payer OTHER, SELFPAY ==
--- NOTE | ~2020-04-29 | CT_ITS ---
EXAMINATION: CT ABDOMEN AND PELVIS WITHOUT CONTRAST CLINICAL INFORMATION: Right upper quadrant pain. Right lower quadrant pain. History of ascites. COMPARISON: Ultrasound paracentesis 03/12/2020. CT scan abdomen and pelvis 02/16/2020 TECHNIQUE: Multidetector volumetric imaging was performed from the superior aspect of the liver through the pubic symphysis. Sagittal and coronal reformatted images were obtained on the technologist's workstation. This CT examination was performed using dose optimization techniques as appropriate, variously including the following: *Automated exposure control *Adjustment of mA and/or kV according to patient size (this includes techniques or standardized protocols for targeted exams where dose is matched to indication/reason for exam; i.e. extremities or head) *Use of iterative reconstruction technique DLP: 401 mGy-cm FINDINGS: LUNG BASES: Large volume left pleural effusion with compressive atelectasis at left lung base. Small to moderate volume right pleural effusion with atelectasis at right lung base. LIVER, GALLBLADDER, AND BILIARY TREE: Right lobe of liver measures 17 cm superior inferior. Cirrhotic liver with recannulized umbilical vein again noted. There is no focal liver lesion or intrahepatic bile duct dilatation. Gallbladder is distended. There is no bile duct dilatation. PANCREAS: Unremarkable. SPLEEN: Unremarkable. ADRENAL GLANDS: Unremarkable. KIDNEYS AND URETERS: The kidneys are normal in size, shape, and attenuation. No hydronephrosis, hydroureter, or calculi seen. No perinephric stranding. BLADDER: Unremarkable. GASTROINTESTINAL TRACT: Surgical anastomosis at the sigmoid colon. There is no acute change of the bowel. There is no distention of bowel or bowel obstruction. Moderate volume of scattered stool in the colon. There are a few diverticula of the sigmoid colon. The small bowel loops are unremarkable. MESENTERY: Moderate to large volume of abdominal ascites. No free air. ABDOMINAL WALL: No significant hernia is appreciated. LYMPH NODES: Normal. VASCULAR: There are vascular calcifications throughout the abdomen and the pelvis. There is no aneurysm of aorta. PELVIC VISCERA: Prostate measures 4.5 cm transverse. OSSEOUS STRUCTURES: Unremarkable. CT/CT abdomen pelvis wo con IMPRESSION: 1. Cirrhosis of liver with recanalized umbilical vein. 2. Moderate volume of abdominal ascites. 3. Status post partial sigmoidectomy. There is no acute abnormality of the bowel. 4. Bilateral pleural effusions left larger than right with bibasilar atelectasis.
--- NOTE | ~2020-04-29 | US_ITS ---
EXAMINATION: ULTRASOUND-GUIDED PARACENTESIS CLINICAL INFORMATION: Ascites COMPARISON: Previous CT of the abdomen and pelvis from yesterday TECHNIQUE: Procedure risks and benefits including bleeding, infection and low blood pressure were discussed with the patient and informed consent was obtained. The right upper quadrant was prepped and draped in the usual sterile fashion. The skin and soft tissues were anesthetized with 1% lidocaine plain. Using ultrasound guidance and a 5 [place] rapid centesis catheter, access to the ascitic fluid was obtained. 4 mL of serosanguineous/slightly bloody fluid was aspirated. This congealed immediately with the consistency jefabo. Diagnostic specimen was sent for Gram stain, culture and cell count. No additional fluid could be aspirated. FINDINGS: There is a very small amount of ascites. US/US paracentesis abd w/image IMPRESSION: Ultrasound-guided paracentesis.
[2020-04-29 16:58] VITALS: BP 111/74; PULSE 116; RESP 18; TEMP 36.8; O2SAT 98; BMI 24.3
[2020-04-29 19:23] LABS: MANUAL DIFF FLAG NO
[2020-04-29 19:25] LABS: Basophils Absolute Auto 0.1 X10*3/uL (0.0-0.2); Basophils Percent Auto 0.7 % (0-2); Eosinophils Absolute Auto 0.2 X10*3/uL (0.0-0.4); Eosinophils Percent Auto 1.7 % (0-4); Hematocrit 31.4 % (42-52); Hemoglobin 10.5 g/dl (14.0-18.0); Imm Gran Abs Auto 0.03 X10*3/uL (0.00-0.03); Imm Gran Pct Auto 0.3 % (0.0-0.4); Lymphocytes Percent Auto 22.8 % (20-40); Mean Corpuscular HGB Conc 33.4 g/dl (31.0-36.0); Mean Corpuscular Hemoglobin 32.8 pg (27.0-33.0); Mean Corpuscular Volume 98.1 fL (80-98); Monocytes Absolute Auto 1.1 X10*3/uL (0.1-1.2); Monocytes Percent Auto 12.2 % (2-11); Neutrophils Absolute Auto 5.4 X10*3/uL (2.0-8.3); Neutrophils Percent Auto 62.3 % (45-73); Platelet Count 226 X10*3/uL (160-400); Red Cell Distribution Width 14.6 % (11.0-16.0); White Blood Count 8.6 X10*3/uL (4.8-10.8)
[2020-04-29 19:54] LABS: Ethanol 254 mg/dL
[2020-04-29 20:00] VITALS: BP 106/72; PULSE 93; RESP 20; TEMP 36.7; O2SAT 95
[2020-04-29 20:05] LABS: Alanine Aminotransferase 12 U/L (0-40); Albumin Level 2.7 g/dL (3.5-5.0); Alkaline Phosphatase 150 U/L (39-117); Anion Gap 15 (12-20); Aspartate Amino Transferase 57 U/L (5-37); Bilirubin Total 2.4 mg/dL (0.0-1.0); Blood Urea Nitrogen 4 mg/dL (9-16); Calcium 8.5 mg/dL (8.4-10.2); Carbon Dioxide 27 mmol/L (22-29); Chloride 103 mmol/L (96-108); Creatinine Clr Calc Pharmacy 106.1; Estimated Glomerular Filt Rate > 60; Glucose Random 95 mg/dL (60-115); Lipase 48 U/L (8-78); Potassium 4.3 mmol/L (3.3-5.1); Sodium 141 mmol/L (135-145); Total Protein 8.4 g/dL (6.5-8.0)
[2020-04-29 20:59] LABS: INTERNATIONAL NORM RATIO 1.6 (0.9-1.1); Prothrombin Time 18.7 SEC (10.8-13.0)
[2020-04-29] MEDS: Morphine Sulfate 4 MG/ML CARTRIDGE IVPUSH (21:33)
[2020-04-29 21:36] LABS: Lactic Acid 3.1 mmol/L (0.5-2.0)
--- NOTE | 2020-04-29 22:03 | ED.ABDPAIN ---
HPI - Abdominal Pain General Chief Complaint: Abdominal Pain Stated Complaint: Abdominal pain Time Seen by Provider: 04/29/20 19:52 Source: patient Mode of arrival: ambulatory Limitations: no limitations History of Present Illness HPI narrative: Patient comes emergency room complaining of abdominal pain. Patient states he was here earlier in March, had a paracentesis done, 13 L were drained. Patient states that he has diffuse abdominal pain, no nausea vomiting. Patient states that he continues drinking alcohol. Patient was discharged on March 13, patient was admitted for spontaneous bacterial peritonitis, anemia for which she needed blood transfusion. Patient denies fever chills MD elicited complaint: abdominal pain Related Data Home Medications Medication Instructions Recorded Confirmed cholecalciferol (vitamin D3) 1,250 1,250 mcg PO QWEEK 12/28/19 03/09/20 mcg (50,000 unit) capsule spironolactone 50 mg tablet 50 mg PO DAILY 12/28/19 03/09/20 Previous Rx's Medication Instructions Recorded folic acid 1 mg tablet 1 mg PO DAILY #30 tab 12/28/19 thiamine HCl (vitamin B1) 100 mg 100 mg PO DAILY 30 Days #30 tab 12/28/19 tablet loperamide 2 mg PO Q4H PRN #20 cap 02/21/20 omeprazole 20 mg PO DAILY@0630 #30 cap 02/21/20 metronidazole 500 mg PO Q8H #30 tab 02/25/20 ciprofloxacin HCl [Cipro] 500 mg PO BID #4 tab 03/13/20 ferrous sulfate 325 mg PO DAILY #30 tab 03/13/20 furosemide 20 mg PO DAILY #30 tab 03/13/20 multivitamin with folic acid 1 tab PO DAILY #30 tab 03/13/20 [Tab-A-Daniel] nicotine 14 mg TRANSDERMAL DAILY #30 ea 03/13/20 Allergies Allergy/AdvReac Type Severity Reaction Status Date / Time No Known Allergies Allergy Verified 04/29/20 16:58 [No Known Allergies*] Review of Systems Review of Systems Constitutional : No Weight loss, No Fever, No Chills, No Night Sweats, No Fatigue, No Malaise ENT/Mouth : No Hearing loss, No Ear Pain, No Nasal Congestion, No Sinus Pain, No Hoarseness, No sore throat, No Rhinorrhea, No Swallowing Difficulty Eyes: No Eye Pain, No Swelling, No Redness, No Foreign Body, No Discharge, No Vision Changes Cardiovascular : No Chest Pain, No SOB, No Dyspnea on Exertion, No Orthopnea, No Edema, No Palpitations Respiratory : No Cough, No Sputum, No Wheezing, No Smoke Exposure, No Dyspnea Gastrointestinal : No Nausea, No Vomiting, complaining of Diarrhea, No Constipation complaining of diffuse abdominal pain, No Hematochezia, No Melena Genitourinary : no irregular bleeding, No Dysuria, No Urinary Frequency, No Hematuria, No Urinary Incontinence, No Urgency, No Flank Pain, No Urinary Flow Changes, No Hesitancy Musculoskeletal : No joint pain, No Myalgias, No Joint Swelling Skin : No Skin Lesions, No rash Neuro : No Weakness, No Numbness, No Paresthesias, No Loss of Consciousness, No Dizziness, No Headache Psych : No Anxiety/Panic, No Depression, No SI/HI/AH/VH, No Social Issues, Heme/Lymph: No Bruising, No Bleeding,No Lymphadenopathy Endocrine : No Polyuria, No Polydipsia, No Temperature Intolerance Physical Exam Vital Signs: Vital Signs: Last Vital Signs Temp 98.1 F 04/29/20 20:00 Pulse 93 04/29/20 20:00 Resp 20 04/29/20 20:00 BP 106/72 04/29/20 20:00 Pulse Ox 95 04/29/20 20:00 Body Mass Index 24.3 Appearance: Alert. Oriented X3. No acute distress. Eyes: Pupils equal, round and reactive to light. ENT: Pharynx normal. Neck: Normal inspection. Neck supple. No lymph nodes noted. No crepitus CVS: Normal heart rate and rhythm. Pulses normal. Normal S1 and S2 Respiratory: No respiratory distress. Breath sounds normal. No Wheezing. No rales Abdomen: Soft and nontender. No rigidity. No distention. Bedside ultrasound shows a small pocket of fluid, however there is less than 1 cm between the intestines and the abdominal wall Skin: Skin warm and dry. Normal skin color. Normal skin turgor. Extremities: No lower extremity edema. No lower extremity edema. No Lacerations. No Rash Neuro: Oriented X 3. No motor deficit. No sensory deficit. Moving all extermities. No slurred speech. Course Course Course Narrative: On bedside ultrasound, a pocket fluid that is large enough for paracentesis was not visualized. Patient will likely need IR in the morning. However, patient will be empirically treated for SBP at this time, sepsis is not suspected, white blood cell count is 8.6, lactic acid elevation likely secondary to chronic cirrhosis rather than sepsis. Patient has no fever or chills. SBP has not been ruled out, however he is being treated empirically with ceftriaxone. I discussed the patient with Dr. Redding, patient admitted. At this time, patient is alert and oriented x3, patient is not encephalopathic MDM - Abdominal Pain Lab Data Result diagrams: 04/29/20 19:17 04/29/20 19:17 Labs: Lab Results 04/29/20 04/29/20 04/29/20 Range/Units 19:17 19:17 19:17 WBC 8.6 (4.8-10.8) X10*3/uL RBC 3.20 L D (4.60-5.80) X10*6/uL Hgb 10.5 L D (14.0-18.0) g/dl Hct 31.4 L D (42-52) % MCV 98.1 H (80-98) fL MCH 32.8 (27.0-33.0) pg MCHC 33.4 (31.0-36.0) g/dl RDW 14.6 (11.0-16.0) % Plt Count 226 (160-400) X10*3/uL MPV 10.0 (9.4-12.4) fL Immature Gran % (Auto) 0.3 (0.0-0.4) % Neut % (Auto) 62.3 (45-73) % Lymph % (Auto) 22.8 (20-40) % [place] % (Auto) 12.2 H (2-11) % Eos % (Auto) 1.7 (0-4) % Baso % (Auto) 0.7 (0-2) % Lymph # (Auto) 2.0 (1.2-4.9) X10*3/uL [place] # (Auto) 1.1 (0.1-1.2) X10*3/uL Eos # (Auto) 0.2 (0.0-0.4) X10*3/uL Baso # (Auto) 0.1 (0.0-0.2) X10*3/uL Abs Immat Gran (auto) 0.03 (0.00-0.03) X10*3/uL Absolute Neuts (auto) 5.4 (2.0-8.3) X10*3/uL Absolute Nucleated RBC 0.000 (0.0-0.012) X10*3/uL Nucleated RBC % (auto) 0.0 (0.0-0.2) /100WBC PT 18.7 H D (10.8-13.0) SEC INR 1.6 H (0.9-1.1) Hold Blue Top SEE NOTE Sodium 141 (135-145) mmol/L Potassium 4.3 (3.3-5.1) mmol/L Chloride 103 (96-108) mmol/L Carbon Dioxide 27 (22-29) mmol/L Anion Gap 15 (12-20) BUN 4 L D (9-16) mg/dL Creatinine 0.74 (0.5-1.4) mg/dL Estim Creat Clear Calc 106.1 Estimated GFR > 60 Random Glucose 95 (60-115) mg/dL Lactic Acid (0.5-2.0) mmol/L Calcium 8.5 D (8.4-10.2) mg/dL Total Bilirubin 2.4 H (0.0-1.0) mg/dL AST 57 H (5-37) U/L ALT 12 (0-40) U/L Alkaline Phosphatase 150 H D (39-117) U/L Total Protein 8.4 H D (6.5-8.0) g/dL Albumin 2.7 L (3.5-5.0) g/dL Lipase 48 (8-78) U/L Ethyl Alcohol mg/dL 04/29/20 04/29/20 Range/Units 19:17 20:55 WBC (4.8-10.8) X10*3/uL RBC (4.60-5.80) X10*6/uL Hgb (14.0-18.0) g/dl Hct (42-52) % MCV (80-98) fL MCH (27.0-33.0) pg MCHC (31.0-36.0) g/dl RDW (11.0-16.0) % Plt Count (160-400) X10*3/uL MPV (9.4-12.4) fL Immature Gran % (Auto) (0.0-0.4) % Neut % (Auto) (45-73) % Lymph % (Auto) (20-40) % [place] % (Auto) (2-11) % Eos % (Auto) (0-4) % Baso % (Auto) (0-2) % Lymph # (Auto) (1.2-4.9) X10*3/uL Nicholas # (Auto) (0.1-1.2) X10*3/uL Eos # (Auto) (0.0-0.4) X10*3/uL Baso # (Auto) (0.0-0.2) X10*3/uL Abs Immat Gran (auto) (0.00-0.03) X10*3/uL Absolute Neuts (auto) (2.0-8.3) X10*3/uL Absolute Nucleated RBC (0.0-0.012) X10*3/uL Nucleated RBC % (auto) (0.0-0.2) /100WBC PT (10.8-13.0) SEC INR (0.9-1.1) Hold Blue Top Sodium (135-145) mmol/L Potassium (3.3-5.1) mmol/L Chloride (96-108) mmol/L Carbon Dioxide (22-29) mmol/L Anion Gap (12-20) BUN (9-16) mg/dL Creatinine (0.5-1.4) mg/dL Estim Creat Clear Calc Estimated GFR Random Glucose (60-115) mg/dL Lactic Acid 3.1 H* (0.5-2.0) mmol/L Calcium (8.4-10.2) mg/dL Total Bilirubin (0.0-1.0) mg/dL AST (5-37) U/L ALT (0-40) U/L Alkaline Phosphatase (39-117) U/L Total Protein (6.5-8.0) g/dL Albumin (3.5-5.0) g/dL Lipase (8-78) U/L Ethyl Alcohol 254 mg/dL Imaging Data CT scan - abdomen: Radiologist's impression: FINDINGS: LUNG BASES: Large volume left pleural effusion with compressive atelectasis at left lung base. Small to moderate volume right pleural effusion with atelectasis at right lung base. LIVER, GALLBLADDER, AND BILIARY TREE: Right lobe of liver measures 17 cm superior inferior. Cirrhotic liver with recannulized umbilical vein again noted. There is no focal liver lesion or intrahepatic bile duct dilatation. Gallbladder is distended. There is no bile duct dilatation. PANCREAS: Unremarkable. SPLEEN: Unremarkable. ADRENAL GLANDS: Unremarkable. KIDNEYS AND URETERS: The kidneys are normal in size, shape, and attenuation. No hydronephrosis, hydroureter, or calculi seen. No perinephric stranding. BLADDER: Unremarkable. GASTROINTESTINAL TRACT: Surgical anastomosis at the sigmoid colon. There is no acute change of the bowel. There is no distention of bowel or bowel obstruction. Moderate volume of scattered stool in the colon. There are a few diverticula of the sigmoid colon. The small bowel loops are unremarkable. MESENTERY: Moderate to large volume of abdominal ascites. No free air. ABDOMINAL WALL: No significant hernia is appreciated. LYMPH NODES: Normal. VASCULAR: There are vascular calcifications throughout the abdomen and the pelvis. There is no aneurysm of aorta. PELVIC VISCERA: Prostate measures 4.5 cm transverse. OSSEOUS STRUCTURES: Unremarkable. CT/CT abdomen pelvis wo con IMPRESSION: 1. Cirrhosis of liver with recanalized umbilical vein. 2. Moderate volume of abdominal ascites. 3. Status post partial sigmoidectomy. There is no acute abnormality of the bowel. 4. Bilateral pleural effusions left larger than right with bibasilar atelectasis. Discharge Plan Discharge Clinical Impression: Ascites due to alcoholic cirrhosis Abdominal pain Qualifiers: Abdominal location: generalized Qualified Code(s): R10.84 - Generalized abdominal pain Patient Disposition: Admitted As Inpatient [facility] Past Medical History Medical History (Updated 04/29/20 @ 23:18 by Katie Reddy MD) Alcohol abuse Alcoholism Anemia Ascites C. difficile colitis Cirrhosis, alcoholic GIB (gastrointestinal bleeding) History of abdominal paracentesis History of Clostridioides difficile colitis (~10/2019) History of open sigmoidectomy Kidney stone Low vitamin D level Spontaneous bacterial peritonitis Ulcerative colitis Surgical History H/O colectomy History of esophagogastroduodenoscopy (EGD) Hx of colonoscopy Family History Family History Father Hx of thyroid cancer Mother Hx of thyroid disease Daughter No problems noted. 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
[2020-04-29 23:09] LABS: Reflex Lactate? Lactic Acid Added
[2020-04-29] MEDS: cefTRIAXone sodium 2 GM in 0.9 % Sodium Chloride 50 ML IV (23:10)
--- NOTE | 2020-04-29 23:20 | P.HPHOSP_ITS ---
History of Present Illness Date of Service: 04/29/20 Chief Complaint: Abdominal pain 59-year-old male with a past medical history of alcohol abuse, alcoholic liver cirrhosis, history of multiple therapeutic paracentesis, history of spontaneous bacterial peritonitis, vitamin-D deficiency, history of C diff, anemia presented to the hospital with a chief complaint of abdominal pain. Patient was in the he has been having these abdominal symptoms for the past few days. Denies any nausea vomiting or diarrhea. Denies any blood in the stool. Denies any chest pain palpitations. Denies any fever chills cough. Review of all other systems is negative except mentioned above ER course: Per ER team patient had a CT abdomen that showed cirrhotic liver and moderate volume ascites. ER team tried to do bedside ultrasound/paracentesis but unable to find a good pocket hence paracentesis was not done. Patient was empirically given ceftriaxone and admitted to the hospital for further management. ER team also mentioned that patient does not show any signs of encephalopathy currently. [facility] Medical History (Updated 04/29/20 @ 23:18 by Katie Reddy MD) Alcohol abuse Alcoholism Anemia Ascites C. difficile colitis Cirrhosis, alcoholic GIB (gastrointestinal bleeding) History of abdominal paracentesis History of Clostridioides difficile colitis (~10/2019) History of open sigmoidectomy Kidney stone Low vitamin D level Spontaneous bacterial peritonitis Ulcerative colitis Family History Father Hx of thyroid cancer Mother Hx of thyroid disease Daughter No problems noted. 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 Meds Allergies Allergy/AdvReac Type Severity Reaction Status Date / Time No Known Allergies Allergy Verified 04/29/20 16:58 [No Known Allergies*] Active Medications: Current Medications Generic Name Dose Route Start Last Admin Trade Name Freq PRN Reason Stop Dose Admin Ceftriaxone Sodium 1 gm/ 50 mls @ 100 mls/hr 04/29/20 23:30 Sodium Chloride IV Q24H SHAUN Oxycodone HCl 5 mg 04/30/20 00:01 Oxycodone Hcl Immed Release 5 Mg Tablet PO Q6H PRN Pain, Severe (Pain Scale 7-10) Senna 17.2 mg 04/29/20 23:16 Sennosides 8.6 Mg Tablet PO BEDTIME PRN Constipation Sodium Chloride 3 ml 04/30/20 00:00 0.9 % Sodium Chloride Flush 3 Ml Syringe IVFLUSH QSHIFT SHAUN Physical Exam Vital Signs and Narrative: Vital Signs: Last Vital Signs Temp 98.1 F 04/29/20 20:00 Pulse 93 04/29/20 20:00 Resp 20 04/29/20 20:00 BP 106/72 04/29/20 20:00 Pulse Ox 95 04/29/20 20:00 Body Mass Index 24.3 Gen: Appears be in no acute distress HEENT: NCAT, Moist mucosa. Pulmonary: Vesicular breath sounds, fair air entry CVS: Normal S1-S2 Abdomen: BS+, Soft, diffusely tender and distended. Extremities: Warm well perfused Neuro: Alert and awake. Results Labs CBC and Chem 7: 04/30/20 05:39 04/30/20 05:39 Labs: Laboratory Results - last 24 hr 04/29/20 04/29/20 04/29/20 19:17 19:17 19:17 MCV 98.1 H MCH 32.8 MCHC 33.4 RDW 14.6 Plt Count 226 MPV 10.0 Immature Gran % (Auto) 0.3 Neut % (Auto) 62.3 Lymph % (Auto) 22.8 [place] % (Auto) 12.2 H Eos % (Auto) 1.7 Baso % (Auto) 0.7 Lymph # (Auto) 2.0 [place] # (Auto) 1.1 Eos # (Auto) 0.2 Baso # (Auto) 0.1 Abs Immat Gran (auto) 0.03 Absolute Neuts (auto) 5.4 Absolute Nucleated RBC 0.000 Nucleated RBC % (auto) 0.0 PT 18.7 H D INR 1.6 H Hold Blue Top SEE NOTE Anion Gap 15 Estim Creat Clear Calc 106.1 Estimated GFR > 60 Random Glucose 95 Lactic Acid Calcium 8.5 D Total Bilirubin 2.4 H AST 57 H ALT 12 Alkaline Phosphatase 150 H D Total Protein 8.4 H D Albumin 2.7 L Lipase 48 Ethyl Alcohol 04/29/20 04/29/20 19:17 20:55 MCV MCH MCHC RDW Plt Count MPV Immature Gran % (Auto) Neut % (Auto) Lymph % (Auto) [place] % (Auto) Eos % (Auto) Baso % (Auto) Lymph # (Auto) [place] # (Auto) Eos # (Auto) Baso # (Auto) Abs Immat Gran (auto) Absolute Neuts (auto) Absolute Nucleated RBC Nucleated RBC % (auto) PT INR Hold Blue Top Anion Gap Estim Creat Clear Calc Estimated GFR Random Glucose Lactic Acid 3.1 H* Calcium Total Bilirubin AST ALT Alkaline Phosphatase Total Protein Albumin Lipase Ethyl Alcohol 254 Imaging Radiologist's Impressions: Impressions Abdomen/Pelvis CT 04/29/20 22:37 IMPRESSION: 1. Cirrhosis of liver with recanalized umbilical vein. 2. Moderate volume of abdominal ascites. 3. Status post partial sigmoidectomy. There is no acute abnormality of the bowel. 4. Bilateral pleural effusions left larger than right with bibasilar atelectasis. Assessment and Plan (1) Ascites due to alcoholic cirrhosis: Status: Acute 59-year-old male with a past medical history of alcohol abuse, alcoholic liver cirrhosis, ascites, history of spontaneous bacterial peritonitis, history of recurrent therapeutic taps, recent admission to the hospital in March for therapeutics tap and anemia presented to the hospital today with a chief complaint of abdominal pain. Abdominal pain: Likely in the setting of ascites. Unsuccessful diagnostic tap in the ER. Empirically started on ceftriaxone. Will continue for now. Patient currently does not show any signs of encephalopathy. Will monitor closely. Ascites: Will have the primary team touch base with radiology for ultrasound- guided paracentesis in the morning. Continue home Lasix and spironolactone. Lactic acidosis: Likely in the setting of liver disease. Will continue to monitor. For all other chronic conditions, home medications will be continued DVT prophylaxis: SCD boots Code status: Full code
[2020-04-30] VITALS (9 sets, daily range): BP systolic 101–131; BP diastolic 62–74; PULSE 82–97; RESP 16–20; TEMP 36.2–37.2; O2SAT 92–96
[2020-04-30 00:17] LABS: COVID-19 Test Negative (Negative)
[2020-04-30 01:06] LABS: ~Lactic Acid-LAB USE ONLY 2.9 mmol/L (0.5-2.0)
[2020-04-30] MEDS: 0.9 % Sodium Chloride Flush 3 ML SYRINGE IVFLUSH ×3 (01:56→16:23)
[2020-04-30] MEDS: oxyCODONE HCl Immed Release 5 MG TABLET PO ×3 (01:56→14:34)
[2020-04-30 02:25] LABS: Reflex Lactate? 2 Y
[2020-04-30 03:27] LABS: ~Lactic Acid-LAB USE ONLY 3.4 mmol/L (0.5-2.0)
[2020-04-30 03:28] LABS: Magnesium 1.5 mg/dL (1.6-2.6)
[2020-04-30 06:16] LABS: MANUAL DIFF FLAG NO
[2020-04-30 06:25] LABS: Basophils Percent Auto 0.6 % (0-2); Eosinophils Absolute Auto 0.2 X10*3/uL (0.0-0.4); Eosinophils Percent Auto 2.3 % (0-4); Hematocrit 27.7 % (42-52); Hemoglobin 9.1 g/dl (14.0-18.0); Imm Gran Abs Auto 0.02 X10*3/uL (0.00-0.03); Imm Gran Pct Auto 0.3 % (0.0-0.4); Lymphocytes Absolute Auto 1.5 X10*3/uL (1.2-4.9); Lymphocytes Percent Auto 22.1 % (20-40); Mean Corpuscular HGB Conc 32.9 g/dl (31.0-36.0); Mean Corpuscular Hemoglobin 32.3 pg (27.0-33.0); Mean Corpuscular Volume 98.2 fL (80-98); Mean Platelet Volume 10.1 fL (9.4-12.4); Monocytes Absolute Auto 1.3 X10*3/uL (0.1-1.2); Monocytes Percent Auto 18.6 % (2-11); Neutrophils Absolute Auto 3.8 X10*3/uL (2.0-8.3); Neutrophils Percent Auto 56.1 % (45-73); Platelet Count 182 X10*3/uL (160-400); Red Blood Count 2.82 X10*6/uL (4.60-5.80); Red Cell Distribution Width 14.8 % (11.0-16.0); White Blood Count 6.8 X10*3/uL (4.8-10.8)
[2020-04-30 06:42] LABS: Anion Gap 13 (12-20); Blood Urea Nitrogen 6 mg/dL (9-16); Calcium 7.9 mg/dL (8.4-10.2); Carbon Dioxide 28 mmol/L (22-29); Chloride 105 mmol/L (96-108); Creatinine Clr Calc Pharmacy 110.6; Estimated Glomerular Filt Rate > 60; Glucose Random 111 mg/dL (60-115); Potassium 4.1 mmol/L (3.3-5.1); Sodium 142 mmol/L (135-145)
--- NOTE | 2020-04-30 09:38 | HO.PM.IMPN ---
Subjective Subjective Date of Service: 04/30/20 Interval History: Seen in f/u for abdominal pain in setting of excessive drinking, feels better, able to eat Review of Systems Gen: no fever Resp: no sob, no cough CV: no chest, no FERRER, no leg edema GI: No n/v, + abd pain Neuro: No confusion Physical Exam Vital Signs: Vital Signs: Last Vital Signs Temp 98.3 F 04/30/20 07:20 Pulse 82 04/30/20 07:20 Resp 18 04/30/20 07:20 BP 122/74 04/30/20 07:20 Pulse Ox 95 04/30/20 07:20 Body Mass Index 24.3 General: AO X 3, no acute distress Resp: CTA bilateral CVS: S1,S2,RRR GI: +BS, mild epig tenderness Skin: No rash Neuro: motor grossly intact Psych: appropriate affect Objective Data Current Medications Generic Name Dose Route Start Last Admin Trade Name Freq PRN Reason Stop Dose Admin Ceftriaxone Sodium 1 gm/ 50 mls @ 100 mls/hr 04/30/20 23:00 Sodium Chloride IV Q24H [facility] Morphine Sulfate 1 mg 04/30/20 01:47 Morphine Sulfate 2 Mg/Ml Cartridge IVPUSH Q6H PRN Breakthrough Pain Oxycodone HCl 5 mg 04/30/20 00:01 04/30/20 08:33 Oxycodone Hcl Immed Release 5 Mg Tablet PO 5 mg Q6H PRN Administration Pain, Severe (Pain Scale 7-10) Senna 17.2 mg 04/29/20 23:16 Sennosides 8.6 Mg Tablet PO BEDTIME PRN Constipation Sodium Chloride 3 ml 04/30/20 00:00 04/30/20 08:34 0.9 % Sodium Chloride Flush 3 Ml Syringe IVFLUSH 3 ml QSHIFT SHAUN Administration Labs CBC & Chem 7: 04/30/20 05:39 04/30/20 05:39 Assessment and Plan (1) Ascites due to alcoholic cirrhosis: Status: Acute Assessment and Plan: 59-year-old male with a past medical history of alcohol abuse, alcoholic liver cirrhosis, ascites, history of spontaneous bacterial peritonitis, history of recurrent therapeutic taps, recent admission to the hospital in March for therapeutics tap and anemia presented to the hospital today with a chief complaint of abdominal pain. Abdominal pain in setting chronic alcohol use. I suspect this likely related to gastritis vs ulcer, there is no clinical evidenc that this is SBP -IV PPI -GI consult to be considered for EGD Ascites: continue lasix, aldactone, Paracentesis by IR Alcohol dependency, at very high risk for withdrawal--Start Phenobarb Lactic acidosis: Likely in the setting of liver disease. Will continue to monitor. For all other chronic conditions, home medications will be continued DVT prophylaxis: SCD boots Code status: Full code
--- NOTE | 2020-04-30 10:25 | PM.GICN ---
History of Present Illness Data of Consult Service Date: 04/30/20 Requesting physician: Santo Hernandez Primary Care Provider: Jarvis Ovalle MD HPI Reason for consult: abdo pain, cirrhosis 59 year history of alcohol liver cirrhosis with ascites, SBP, anemia who I am asked to see for assessment for abdominal pain Patient has had abdo pain for few days more on the right side of his abdomen and stretching towards the umbilicus, associated with abdo distention. He denies fevers, chills, SOB, chest pain. He cont to take alcohol and has been non compliant with medications. Denies any nausea vomiting or diarrhea. Denies any blood in the stool. He has had similar pain before for admission with ascites and SBP in 03/2020. He was supposed to be on ABx prophylaxis to prevent further SBP but had not refilled the ABX. CT revealed moderate ascites, pl effusions noted. US paracnetesis today with only small amount of fluid removed, ceel count supportive of sbp (263 PMN--also received ABX prior to tap) Saw Jonathon from [facility] 10/2019 for inpatient stay for anemia, alcohol hepatitis and had EGD with esophagitis, duodenitis, no mention made of varices. Review of Systems Review of Systems: Gen: no fever Resp: no sob, no cough CV: no chest, no FERRER, no leg edema GI: No n/v, + abd pain Neuro: No confusion Constitutional: Constitutional: Reports as per HPI Respiratory: Respiratory: Reports no additional respiratory complaints and Reports chest congestion Neurologic: Reports system reviewed and no additional complaints, except as documented Psychiatric: Psychiatric: Denies homicidal ideation [facility] Past Medical History Medical History (Updated 04/29/20 @ 23:18 by Katie Reddy MD) Alcohol abuse Alcoholism Anemia Ascites C. difficile colitis Cirrhosis, alcoholic GIB (gastrointestinal bleeding) History of abdominal paracentesis History of Clostridioides difficile colitis (~10/2019) History of open sigmoidectomy Kidney stone Low vitamin D level Spontaneous bacterial peritonitis Ulcerative colitis Family History Family History Father Hx of thyroid cancer Mother Hx of thyroid disease Daughter No problems noted. Son Autism Surgical History Surgical History H/O colectomy History of esophagogastroduodenoscopy (EGD) Hx of colonoscopy Social History Social History Household Members: None Housing: House Do you presently have visiting nurse or other home services: No Alcohol intake: current Alcohol intake frequency: a few times a week Alcohol type: beer and hard liquor Smoking Status: Current every day smoker Tobacco Type: Cigarette Packs Per Day: 1 Cigarettes Per Day: 20.0 Smoked in Last 30 Days: Yes Patient Interested in Nicotine Replacement: No Patient Given Instructions on How to Stop Smoking: Yes Date Education Initiated: 04/30/20 Second Hand Smoke Exposure: No Use of substances other than those prescribed or required for medical reasons: No Currently Displaying Signs/Symptoms of Drug Intoxication Withdrawal: No Have you been hit, kicked, punched, or otherwise hurt by someone within the past year? 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 Allergies Allergy/AdvReac Type Severity Reaction Status Date / Time No Known Allergies Allergy Verified 04/29/20 16:58 [No Known Allergies*] Active Medications: Current Medications Generic Name Dose Route Start Last Admin Trade Name Freq PRN Reason Stop Dose Admin Ceftriaxone Sodium 1 gm/ 50 mls @ 100 mls/hr 04/30/20 23:00 Sodium Chloride IV Q24H SHAUN Medication 1 each 05/01/20 09:00 No Benzodiazepines MISCELLANE DAILY SHAUN Morphine Sulfate 1 mg 04/30/20 01:47 Morphine Sulfate 2 Mg/Ml Cartridge IVPUSH Q6H PRN Breakthrough Pain Oxycodone HCl 5 mg 04/30/20 00:01 04/30/20 08:33 Oxycodone Hcl Immed Release 5 Mg Tablet PO 5 mg Q6H PRN Administration Pain, Severe (Pain Scale 7-10) Phenobarbital 45 mg 04/30/20 21:00 Phenobarbital 15 Mg Tablet PO 05/02/20 09:01 BID SHAUN Phenobarbital 15 mg 05/02/20 21:00 Phenobarbital 15 Mg Tablet PO 05/04/20 09:01 BID [facility] Phenobarbital 15 mg 05/05/20 09:00 Phenobarbital 15 Mg Tablet PO 05/06/20 09:01 DAILY [facility] Phenobarbital Sodium 170 mg 04/30/20 13:00 Phenobarbital Sodium 130 Mg/Ml Vial IM 04/30/20 16:01 1300,1600 [facility] Senna 17.2 mg 04/29/20 23:16 Sennosides 8.6 Mg Tablet PO BEDTIME PRN Constipation Sodium Chloride 3 ml 04/30/20 00:00 04/30/20 08:34 0.9 % Sodium Chloride Flush 3 Ml Syringe IVFLUSH 3 ml QSHIFT [facility] Administration Home Medications Medication Instructions Recorded Confirmed Last Taken Type No Known Home Meds 04/29/20 04/29/20 Unknown History Physical Exam Vital Signs: Vital Signs: Last Vital Signs Temp 98.3 F 04/30/20 07:20 Pulse 82 04/30/20 07:20 Resp 18 04/30/20 07:20 BP 122/74 04/30/20 07:20 Pulse Ox 95 04/30/20 07:20 Body Mass Index 24.3 EXAM: GENERAL: The patient is unkempt VITAL SIGNS:see above HEENT: Nonicteric sclerae, PERRLA, EOMI. Oropharynx clear. Moist mucous membranes. Conjunctivae appear well perfused. No thyroid mass. CHEST: Chest wall is nontender. HEART: Regular rate and rhythm without murmurs. LUNGS: Clear to auscultation bilaterally. ABDOMEN: distended, small umbilical hernia, generally tender, BS pos, GENITAL:not done RECTAL: not done SKIN: No rash, no excessive bruising, petechiae, or purpura. NEUROLOGIC: Cranial nerves II-XII intact without motor/sensory deficit. Mild tremor Results Labs CBC & Chem 7: 04/30/20 05:39 04/30/20 05:39 Labs: Short CBC 04/29/20 04/30/20 Range/Units 19:17 05:39 WBC 8.6 6.8 (4.8-10.8) X10*3/uL Hgb 10.5 L D 9.1 L (14.0-18.0) g/dl Hct 31.4 L D 27.7 L (42-52) % Plt Count 226 182 (160-400) X10*3/uL BMP 04/29/20 04/30/20 19:17 05:39 Sodium 141 142 Potassium 4.3 4.1 Chloride 103 105 Carbon Dioxide 27 28 BUN 4 L D 6 L Creatinine 0.74 0.71 Calcium 8.5 D 7.9 L D Liver Function 04/29/20 Range/Units 19:17 Total Bilirubin 2.4 H (0.0-1.0) mg/dL AST 57 H (5-37) U/L ALT 12 (0-40) U/L Alkaline Phosphatase 150 H D (39-117) U/L Albumin 2.7 L (3.5-5.0) g/dL Assessment and Plan (1) Ascites due to alcoholic cirrhosis: Status: Acute (2) Abdominal pain: Qualifiers: Abdominal location: generalized Qualified Code(s): R10.84 - Generalized abdominal pain Status: Acute (3) Iron deficiency anemia: Status: Acute (4) Decompensated liver disease: Status: Acute 1/ Decompensated liver cirrhosis with ascites 2/ ascites with prior SBP, prob has recurrent SBP 3/ 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 4/ ongoing alcohol abuse 5/ anemia, no overt loss, may be due to chronic disease, splenic sequestration and malnutrition PLAN: 1/ Work up of pl effusions, consider tapping, ECHO 2/ albumin 25% 1.5 g/kg on D#1 and albumin 25% 1 g/kg in divided doses on D#3 3/ cont with IV ceftriaxone for 7 days and PO cipro thereafter 4/ diurectics in low dose e.g lasix 20 mg and aldactone 50 mg after albumin on d#3 5/ check ferriitn, b12, folate 6/ trend LFT, INR 7/ does not need steroids at this time, LFT are low abnormal 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
[2020-04-30] MEDS: PHENobarbitaL sodium 130 MG/ML VIAL 226 MG IM (10:35)
[2020-04-30] MEDS: Lidocaine HCl 1 % MPF 5 ML VIAL SUBCUT ×2 (11:38→12:31)
--- NOTE | 2020-04-30 11:43 | MHC.CM.PN ---
met with pt who states he had no services prior to admisison referral will be made to care team to see pt prior to dc pt reports he has his own transportation home
--- NOTE | 2020-04-30 12:40 | PC.NURSE ---
OFF UNIT FOR PARACENTESIS
[2020-04-30] MEDS: PHENobarbitaL sodium 130 MG/ML VIAL 170 MG IM ×2 (12:55→15:37)
--- NOTE | 2020-04-30 13:53 | HO.RADPN ---
RADIOLOGY Narrative Narrative: Small amount of ascites. Right upper quadrant paracentesis performed using 5 Fr rapid centesis catheter. 4 mL of slightly bloody/serosanginous fluid aspirated which congealed like jello consistency. Specimen sent for gram stain, culture and cell count.
[2020-04-30 14:23] LABS: MN% 67.5 %; PMN% 32.5 %; RBC Peritoneal Fluid 0.098 X10*6/uL; WBC Peritoneal Fluid 0.538 X10*3/uL
[2020-04-30 14:58] LABS: Neutrophils Peritoneal Fluid 49 %
[2020-04-30 14:59] LABS: BF Shift QC OK YES; Basophils Peritoneal Fl 2 %; Eosinophils Peritoneal Fl 4 %; Lymphocyte Peritoneal Fl 27 %; Man Diluent Bkgrd OK YES; Monocytes Peritoneal Fl 13 %; Other Peritioneal Fl 5 %
--- NOTE | 2020-04-30 16:54 | PC.NURSE ---
A&O X 4, AFEBRILE. VSS. CIWA 1, STARTED ON PHENOBAB PROTOCOL. ABDOMINAL PAIN, MORE SO ON RIGHT SIDE 8-11/08. TREATED WITH PRN OXYCODONE 5MG PO. PARACENTESIS TOOK OFF 4CC.
[2020-04-30] MEDS: PHENobarbitaL 15 MG TABLET 45 MG PO (22:17)
[2020-04-30] MEDS: cefTRIAXone sodium 1 GM in 0.9 % Sodium Chloride 50 ML IV (22:18)
[2020-05-01 03:23] VITALS: BP 115/68; PULSE 80; RESP 20; TEMP 36.5; O2SAT 94
[2020-05-01 07:11] VITALS: BP 126/76; PULSE 82; RESP 20; TEMP 37.2; O2SAT 92
[2020-05-01] MEDS: oxyCODONE HCl Immed Release 5 MG TABLET PO ×2 (07:39→19:57)
[2020-05-01] MEDS: 0.9 % Sodium Chloride Flush 3 ML SYRINGE IVFLUSH ×3 (07:42→23:40)
[2020-05-01] MEDS: PHENobarbitaL 15 MG TABLET 45 MG PO ×2 (08:01→20:55)
[2020-05-01 11:04] VITALS: BP 112/65; PULSE 90; RESP 20; TEMP 37.2; O2SAT 93
--- NOTE | 2020-05-01 11:28 | P.DS_ITS ---
DS: Providers Provider Date of Service: 06/29/20 Date of admission: 04/29/20 23:16 Primary care physician: Jarvis Ovalle MD Consults: 04/30/20 09:37 Consult to Gastroenterology Routine Consulting Provider: Lynette Holt Reason for consultation: Abdominal, epigastric pain, suspect gastritis vs ulcer DS: Diagnosis Discharge Diagnosis (1) Ascites due to alcoholic cirrhosis: Status: Acute (2) Abdominal pain: Status: Resolved (3) Iron deficiency anemia: (4) Decompensated liver disease: Status: Resolved DS: Medications Discharge Medications Home Medications: Home Medications Medication Instructions Recorded Confirmed No Known Home Meds 04/29/20 04/29/20 DS: Summary Hospital Course Hospital Course: Admission date 02/17/20 Chief Complaint: Abdominal pain, diarrhea, and withdrawal from alcohol 59-year-old male with history of alcoholic liver cirrhosis, ascietes, active alcoholism, he was treated for C dif colitis in [facility] of this year. He has been drinking vodka very heavily and the last 2 to 3 days have been having diffuse abdominla pain that is severe and assciated with nausea and vomitting as well as sujective fever. He denies blood in the stool. He is found to have mu ltiple abnormal labs including hemoglobin of 5.4, INR 2, potassium 2.9, magnesium 1.5, ammonia 91, lipase 93, positive UA. He shows sings of alcohol withdrawal and given phenobarbital, he is transfused 2 units of RBC, C dif toxin is pending and he has rectal tube inserted. He is hemodynamically stable at present. Hospital course: He presented with epigastric pain. His H/H has been stable and doesn't seem to be gastritis. There was concern of SBP so underwent paracentesis, unfortunately he had been on IV antibitiocs before the procedure and makes it difficult to interpret result. He was seen by Dr. Galloway and convince that he has SBP and therfore recommend continuing antibitiocs. He was supposed to be on prophylaxis for priror episode of SBP but we belive he has not been bompliant. At this time Dr. Galloway doesn't think EGD is indicated. I will discharge him with Oral Ceftin and upon completion should be on Cipro for prophylaxis. Of note he continued to drink alcohol and was put on phenobarbital while here, he did not go into full- blown alcohol withdrawal. He has been counseled in regard to complete sobriety. He feels very comfortable going home. Time Spent with Patient Time attestation: Total time spent providing and/or coordinating discharge services: Discharge coordination time: Greater than 30 minutes Physical Exam Vital Signs: Vital Signs: Last Vital Signs Selected Entries 05/02/20 06:56 Temperature 99.2 F Pulse Rate 80 Respiratory Rate 20 Blood Pressure 132/76 Pulse Oximetry 97 Oxygen Delivery Me thod Room Air Body Mass Index 24.3 Constitutional Awake and Alert, No apparent distress Neck Supple, No lymphadenopathy Cardiovascular RRR, No M/R/G, S1 S2, No S3 S4, No pedal edema Respiratory Lungs clear, No respiratory distress Gastrointestinal mild epigastric tenderness, Non-distended Skin No rash Neurological Alert & oriented x3 Psychological Appropriate affect DS: Data Data Completed and Pending Completed studies during hospitalization [Text1]: Procedures Detoxification Services for Substance Abuse Treatment (02/17/20) Drainage of Peritoneal Cavity, Percutaneous Approach (03/09/20) Transfusion of Nonautologous Red Blood Cells into Peripheral Vein, Percutaneous Approach (02/17/20) Labs on day of discharge: Laboratory Results - last 24 hr 04/30/20 12:30 Peritoneal WBC 0.538 Peritoneal RBC 0.098 Periton Neutrophils 49 Periton Lymphocytes 27 Peritoneal Monocytes 13 Peritoneal Eosinophils 4 Peritoneal Basophils 2 Peritoneal Other Cells 5 Preliminary micro results at discharge 04/30/20 12:30 Routine Culture - Preliminary Abdominal Fluid No growth to date. Anaerobic Culture - Preliminary No growth to date. 04/29/20 21:25 Blood Culture - Preliminary Blood - Venous No growth after 24 hours. 04/29/20 20:55 Blood Culture - Preliminary Blood - Venous No growth after 24 hours. Discharge Plan Discharge Anticipated Discharge Date/Time: 05/02/20 10:17 Patient Disposition: Home, Self-Care Discharge Diagnosis: Ascites with alcoholic cirrhosis Referrals: Jarvis Ovalle MD [Primary Care Provider] - Discharge Medications: New cefuroxime axetil 500 mg tablet 500 mg PO BID 7 Days Qty: 14 RF: 0 omeprazole 20 mg capsule,delayed release(DR/EC) 20 mg PO DAILY Qty: 30 RF: 0 spironolactone [Aldactone] 25 mg tablet 25 mg PO DAILY Qty: 30 RF: 0 ciprofloxacin HCl [Cipro] 500 mg tablet 500 mg PO BID Qty: 30 RF: 0 Discharge Orders: Discharge Order (Routine); Ordered 05/02/20 Ordered By: Santo Mcintosh Diet: advance to usual diet Activity on Discharge: As tolerated Stand Alone Forms: Patient Portal Discharge page Care Plan Goals: Resolution of rest SBP Health Concerns: Recurring as BP, alcohol dependency. Plan of Treatment: Take cefuroxime as recommended, follow-up with your primary care doctor within a week, stop drinking alcohol, follow through alcohol read cessation programs. Take Aldactone for ascietes Assessment: Alcoholic cirrhosis with ascites Discharge Date/Time: 05/02/20 16:31
--- NOTE | 2020-05-01 11:37 | HO.PM.IMPN ---
Subjective Subjective Date of Service: 05/01/20 Interval History: Seen in f/u for abdominal pain in setting of excessive drinking, feels better, able to eat Review of Systems Gen: no fever Resp: no sob, no cough CV: no chest, no FERRER, no leg edema GI: No n/v, + abd pain Neuro: No confusion Physical Exam Vital Signs: Vital Signs: Last Vital Signs Temp 98.9 F 05/01/20 11:04 Pulse 90 05/01/20 11:04 Resp 20 05/01/20 11:04 BP 112/65 05/01/20 11:04 Pulse Ox 93 05/01/20 11:04 Body Mass Index 24.3 General: AO X 3, no acute distress Resp: CTA bilateral CVS: S1,S2,RRR GI: +BS, slight epig tenderness, no distention Skin: No rash Neuro: motor grossly intact Psych: appropriate affect Objective Data Current Medications Generic Name Dose Route Start Last Admin Trade Name Freq PRN Reason Stop Dose Admin Ceftriaxone Sodium 1 gm/ 50 mls @ 100 mls/hr 04/30/20 23:00 04/30/20 22:50 Sodium Chloride IV Infused Q24H [facility] Infusion Medication 1 each 05/01/20 09:00 No Benzodiazepines MISCELLANE DAILY SHAUN Morphine Sulfate 1 mg 04/30/20 01:47 Morphine Sulfate 2 Mg/Ml Cartridge IVPUSH Q6H PRN Breakthrough Pain Oxycodone HCl 5 mg 04/30/20 00:01 05/01/20 07:39 Oxycodone Hcl Immed Release 5 Mg Tablet PO 5 mg Q6H PRN Administration Pain, Severe (Pain Scale 7-10) Phenobarbital 45 mg 04/30/20 21:00 05/01/20 08:01 Phenobarbital 15 Mg Tablet PO 05/02/20 09:01 45 mg BID SHAUN Administration Phenobarbital 15 mg 05/02/20 21:00 Phenobarbital 15 Mg Tablet PO 05/04/20 09:01 BID SHAUN Phenobarbital 15 mg 05/05/20 09:00 Phenobarbital 15 Mg Tablet PO 05/06/20 09:01 DAILY SHAUN Senna 17.2 mg 04/29/20 23:16 Sennosides 8.6 Mg Tablet PO BEDTIME PRN Constipation Sodium Chloride 3 ml 04/30/20 00:00 05/01/20 07:42 0.9 % Sodium Chloride Flush 3 Ml Syringe IVFLUSH 3 ml QSHIFT SHAUN Administration Labs CBC & Chem 7: 04/30/20 05:39 04/30/20 05:39 Microbiology Microbiology Results: Microbiology 04/30/20 12:30 Abdominal Fluid Gram Stain - Final 04/30/20 12:30 Abdominal Fluid Routine Culture - Preliminary No growth to date. 04/30/20 12:30 Abdominal Fluid Anaerobic Culture - Preliminary No growth to date. 04/29/20 21:25 Blood - Venous Blood Culture - Preliminary No growth after 24 hours. 04/29/20 20:55 Blood - Venous Blood Culture - Preliminary No growth after 24 hours. Assessment and Plan (1) Ascites due to alcoholic cirrhosis: Status: Acute (2) Abdominal pain: Status: Acute (3) Iron deficiency anemia: Status: Acute (4) Decompensated liver disease: Status: Acute Assessment and Plan: 59-year-old male with a past medical history of alcohol abuse, alcoholic liver cirrhosis, ascites, history of spontaneous bacterial peritonitis, history of recurrent therapeutic taps, recent admission to the hospital in March for therapeutics tap and anemia presented to the hospital today with a chief complaint of abdominal pain. Abdominal pain in setting chronic alcohol use and history of SBP. Ascietes fluid analysis possibly consistent with SBP given that he had received Abx -Gi recommend continuing Abx -Albumin 1.5mg/kg divided in 3 doses Pleural effusion--likely related to ascietes, will get echo Ascites: continue lasix, aldactone Alcohol dependency, at very high risk for withdrawal--continue Phenobarb Lactic acidosis: Likely in the setting of liver disease. Will continue to monitor. For all other chronic conditions, home medications will be continued DVT prophylaxis: SCD boots Code status: Full code
[2020-05-01] MEDS: Morphine Sulfate 2 MG/ML CARTRIDGE 1 MG IVPUSH (13:16)
[2020-05-01] MEDS: Pantoprazole Sodium 40 MG/10 ML VIAL IVPUSH (13:16)
--- NOTE | 2020-05-01 14:08 | MHC.CM.PN ---
Male 59 DX Ab pain. DP home with resource information provided by [facility]. Pt will arrange transport. CM will follow.
[2020-05-01 15:03] VITALS: BP 118/66; PULSE 88; RESP 18; TEMP 37.5; O2SAT 94
[2020-05-01 19:14] VITALS: BP 111/59; PULSE 80; RESP 20; TEMP 37.2; O2SAT 96
[2020-05-01] MEDS: cefTRIAXone sodium 1 GM in 0.9 % Sodium Chloride 50 ML IV (22:10)
[2020-05-02] VITALS: BP 105/67; PULSE 87; RESP 16; TEMP 36.9; O2SAT 96
[2020-05-02] MEDS: oxyCODONE HCl Immed Release 5 MG TABLET PO ×2 (02:33→07:55)
[2020-05-02 03:53] VITALS: BP 122/73; PULSE 86; RESP 16; TEMP 37; O2SAT 95
[2020-05-02 06:56] VITALS: BP 132/76; PULSE 80; RESP 20; TEMP 37.3; O2SAT 97
[2020-05-02] MEDS: PHENobarbitaL 15 MG TABLET 45 MG PO (07:50)
[2020-05-02] MEDS: 0.9 % Sodium Chloride Flush 3 ML SYRINGE IVFLUSH (07:51)
--- NOTE | 2020-05-02 10:28 | MHC.CM.PN ---
Addendum entered by Patti Doe 05/02/20 11:51: Pt to be seen by CARE team prior to DC to discuss ETOH treatment. Original Note: Pt to DC home today with no services. Pt will self arrange transportation
[2020-05-02 11:12] VITALS: BP 124/67; PULSE 98; RESP 18; TEMP 36.1; O2SAT 97
--- NOTE | 2020-05-02 12:58 | MHC.RECOVRN ---
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 [facility] does not have a CSS bed. The [facility] will accept referral but can not guarantee a bed. Referral faxed to building coordinatorMary at [phone] (fax) [phone] (phone).
--- NOTE | 2020-05-02 13:34 | MHC.RECOVSUP ---
? Reason for consult:Continuity of care o Current location: [facility] o Identified substance use concern: ETOH - Withdrawal - Seeking ATS (detox) - Support ? Intervention: o ATS bed search started/completed/in process o Community resources provided o Harm reduction discussion ? Plan: o Referral to [facility] o Bed search in progress to o Patient to follow up with [facility] after discharge ? Additional information: Attempted to obtain a bed in [facility]. No beds available. Put him on the waiting list for N waiting list at [facility].
== END 2020-05-02 16:31 | disposition home or self-care (01) | DRG 280 ==
LOC: HO.ED 23:18 → HO.IMC 04-30 00:34
PROVIDERS: Internal Medicine Gastroenterology; Radiology Diagnostic Radiology; Admitting Provider Hospitalist; Emergency Provider Emergency Medicine; PCP Internal Medicine; Visit Provider Internal Medicine
PROC: 0W9G3ZZ Drainage of Peritoneal Cavity, Percutaneous Approach (ICD-10-PCS; principal; 2020-04-30 12:20)
DX: K70.31 Alcoholic cirrhosis of liver with ascites (principal); K65.2 Spontaneous bacterial peritonitis; E87.2 Acidosis; F17.210 Nicotine dependence, cigarettes, uncomplicated; F10.239 Alcohol dependence with withdrawal, unspecified; Z91.14 Patient's other noncompliance with medication regimen; Z20.822 Contact with and (suspected) exposure to COVID-19; Z71.6 Tobacco abuse counseling; Z79.899 Other long term (current) drug therapy
CPT/HCPCS: 36415; 49083; 74176; 80048; 80053; 80320; 83605; 83690; 83735; 85025; 85610; 87040; 87071; 87073; 87205; 87635; 89051; 96365; 96375; 99285; J0696; J2270; J2560

== ENCOUNTER → 2020-05-02 13:10 | Outpatient (BNVA) | payer OTHER, SELFPAY | PROVIDERS: Visit Provider Nurse Practitioner Psychiatric/Mental Health ==